=== PATIENT | female | born 1945 | race Caucasian/White ===

== ENCOUNTER → 2017-10-12 | Outpatient (CLI) | payer MEDICARE ==
[~2017-10-12] MED LIST: ALN70T PO; CATHETER FLUSH 10 ML SYR IV PRN; CEPH-38 PO; ENAL20TA76 PO; HYDR-3454 PO; IOHEXOL 350 MG/ML 100 ML (OMNIPAQUE 350) VIAL IV ONE; NS 100 ML (IVPB) BAG IV ONE; SERT50TA PO; TRIA1CAP4 PO
[2017-10-12 09:23] LABS: BUN/CREATININE RATIO 21; GFR ESTIMATED > 60
--- NOTE | 2017-10-12 10:57 | Diagnostic Imaging Report ---
INDICATION: History of left renal artery stenosis. COMPARISON: 01/02/2016. TECHNIQUE: Postcontrast CTA of the abdomen and pelvis was performed. Contrast bolus was timed for optimal opacification of the arterial structures. Multiplanar and 3-D reformats were also performed and reviewed. FINDINGS: Included portions of the lung bases are clear. CTA abdomen: Again identified is [id number] calcified aortic and arterial atherosclerosis. There is no evidence of dissection, aneurysm, nor focal stenosis of the abdominal aorta. The celiac trunk and superior mesenteric arteries are patent and have a normal appearance. There is normal opacification of the inferior mesenteric artery. Again identified are bulky calcifications at the origin of the left renal artery. As result, there is mild narrowing of the proximal margins of the left renal artery, but this is approximated at only approximately 20% on today's exam. Right renal artery is patent as well. There is significant colonic diverticular disease. There is no CT evidence of acute diverticulitis. Large amount of air and stool is also noted scattered throughout the colon suggestive of underlying constipation. Small bowel loops are nondistended. Normal appendix cannot be adequately identified, but there is no pericecal inflammation. Benign renal cysts are noted. No solid-appearing renal mass type lesions are identified. The adrenal glands, spleen, and pancreas have a normal appearance. Benign-appearing hepatic cysts are also noted. There is no loculated fluid collection, free fluid, nor free air within the abdomen. No abnormal mesenteric or retroperitoneal adenopathy is seen. Bony structures show no acute abnormalities. CTA pelvis: There is mild calcified atherosclerotic disease of the bilateral common iliac arteries and right common femoral artery. There is no focal hemodynamically significant stenosis. Urinary bladder is unopacified. No calculi are seen within the urinary bladder. There is trace amount of free fluid. There is no loculated fluid collection or free air. No abnormal lymph nodes are identified. Bony structures show no acute abnormalities. IMPRESSION: 1. Calcified atherosclerotic disease at the origin of the left renal artery. Again, there is mild narrowing of the proximal portions of left renal artery, but this does not appear to be hemodynamically significant on this exam. 2. Uisa-av-sumynsyh calcified aortic atherosclerosis. No evidence of aneurysm, dissection, nor focal aortic stenosis. 3. Large amount of colonic air and stool. Please correlate for constipation. 4. Moderate colonic diverticular disease, but no CT evidence of acute diverticulitis. 5. Small amount of free fluid within the pelvis of uncertain significance and etiology. Dictated by: Dictated on workstation # [id number]
== END ==
LOC: RAD 08:49
PROVIDERS: ATTEND Family Medicine
DX: I70.1 Atherosclerosis of renal artery (principal); I70.0 Atherosclerosis of aorta; K57.30 Diverticulosis of large intestine without perforation or abscess without bleeding
CPT/HCPCS: 36415; 74174; 82565; 84520

== ENCOUNTER → 2017-12-02 | Outpatient (CLI) | payer MEDICARE ==
[~2017-12-02] MED LIST changes: -CATHETER FLUSH 10 ML SYR IV PRN; -IOHEXOL 350 MG/ML 100 ML (OMNIPAQUE 350) VIAL IV ONE; -NS 100 ML (IVPB) BAG IV ONE
== END ==
LOC: CARD 12:48
PROVIDERS: ATTEND Internal Medicine Cardiovascular Disease
DX: I70.1 Atherosclerosis of renal artery (principal); I10 Essential (primary) hypertension; E78.2 Mixed hyperlipidemia; R09.89 Other specified symptoms and signs involving the circulatory and respiratory systems
CPT/HCPCS: 93306; 93351

== ENCOUNTER 2019-03-07 05:47 | Outpatient (CLI) | payer MEDICARE ==
[~2019-03-07] VITALS: Ht 157.5 cm; Wt 62.1 kg
[2019-03-08] MEDS ORDERED: METO-387 PO (09:08)
[2019-03-08] MEDS ORDERED: SERT50TA9 PO (09:08)
[2019-03-08] MEDS ORDERED: FENO135C4 PO (09:08)
[2019-03-08] MEDS ORDERED: LOSA1TAB23 PO (09:08)
[2019-03-08] MEDS ORDERED: ATOR40TA70 PO (09:08)
== END 2019-03-07 16:30 | disposition home or self-care (01) ==
LOC: PREOP 05:47
PROVIDERS: ATTEND Internal Medicine
DX: Z01.818 Encounter for other preprocedural examination (principal)

== ENCOUNTER 2019-03-11 07:59 | Day surgery (SDC) | payer MEDICARE ==
--- NOTE | 2019-02-28 16:58 | HISTORY AND PHYSICAL ---
DATE OF SERVICE: COLONOSCOPY HISTORY AND PHYSICAL HISTORY OF PRESENT ILLNESS: The patient is a 73-year-old white female referred by Dr. Ugalde for screening colonoscopy. I last performed screening colonoscopy on her nearly 10 years ago, at which time she had diverticular disease and a serrated polyp removed from the cecum. She states that she has been feeling well and denies any problems with abdominal pain, bright red blood per rectum or melena. 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 She has no known history for vascular disease or pulmonary disease, and denies any significant change in medical history over the past 10 years. MEDICATIONS ON ADMISSION: Atorvastatin 40 mg daily, metoprolol ER 25 daily, sertraline 50 mg daily, losartan HCT 100/25 one daily and fenofibrate 135 mg at bedtime. PAST SURGICAL HISTORY: Noncontributory. FAMILY HISTORY: She is not aware of any family history for colon cancer, polyps or inflammatory bowel disease. PHYSICAL EXAMINATION: GENERAL: Reveals a white female, who appears to be in no acute distress. VITAL SIGNS: Weight is 137.4 pounds, blood pressure 126/64. HEENT: Unremarkable. Sclerae nonicteric. CHEST: Clear to auscultation. CARDIOVASCULAR: Reveals a regular rate and rhythm without murmur, S3 or S4. ABDOMEN: Soft, supple without mass, organomegaly or tenderness. EXTREMITIES: Reveal no cyanosis, clubbing or edema. ASSESSMENT AND PLAN: The patient is set for screening colonoscopy on 03/11/2019. Prep instructions with the Suprep kit were given and questions were answered. I thank you for the referral of this pleasant lady. Job ID: [id number] DocumentID: [id number] Dictated Date: 02/25/2019 13:05:04 Steam Conditioner Filling Date: 02/25/2019 13:57:22 Dictated By: MARCEL JOSHI MD
[2019-03-11] VITALS (13 sets, daily range): BP systolic 129–169; BP diastolic 58–78
[~2019-03-11] VITALS: Ht 157.5 cm; Wt 62.1 kg
[~2019-03-11 07:59] MED LIST changes: +ATOR40TA70 PO; +FENO135C4 PO; +LOSA1TAB23 PO; +METO-387 PO; +SERT50TA9 PO
[2019-03-11] MEDS ORDERED: D5 LR IV SOLUTION 1,000 ML IV ONE (08:27)
[2019-03-11] MEDS ORDERED: D5 LR IV SOLUTION 1,000 ML IV STA (08:58)
--- NOTE | 2019-03-11 08:58 | Pre-Op Note & Conscious Sedat ---
Pre-Operative Progress Note H&P Reviewed The H&P was reviewed, patient examined and no changes noted. Date H&P Reviewed: Mar 11, 2019 Time H&P Reviewed: 08:57 Conscious Sedation Pre-Proced ASA Score 2 For ASA 3 and 4: Consider anesthesia and medical clearance. Also, for patients with a history of failed moderate sedation consider anesthesia. Airway Lungs Heart ASA score ASA 1: a normal healthy patient ASA 2: a patient with a mild systemic disease (mid diabetes, controlled hypertension, obesity ASA 3: a patient with a severe systemic disease that limits activity (angina, COPD, prior Myocardial infarction) ASA 4: a patient with an incapacitating disease that is a constant threat to life (CHF, renal failure) ASA 5: a moribund patient not expected to survive 24 hrs. (ruptured aneurysm) ASA 6: a declared brain- patient whose organs are being harvested. For emergent operations, add the letter E after the classification Mallampati Classification Grade 2 Sedation Plan Analgesia, Amnesia, Plan communicated to team members, Discussed options with patient/fam, Discussed risks with patient/fam The patient is an appropriate candidate to undergo the planned procedure, sedation, and anesthesia. The patient immediately re-assessed prior to indication. MARCEL JOSHI MD Mar 11, 2019 08:57
[2019-03-11] MEDS ORDERED: fentaNYL INJECTION 100 MCG/2 ML AMP IVP ONE (09:00)
[2019-03-11] MEDS ORDERED: MIDAZOLAM 2 MG/2 ML (VERSED) VIAL IVP ONE (09:00)
[2019-03-11] MEDS ORDERED: LIDOCAINE JELLY 2% 6 ML SYRINGE MM PRN (09:00)
[2019-03-11] MEDS ORDERED: MIDAZOLAM 2 MG/2 ML (VERSED) VIAL ONE ×2 (09:33→09:34)
[2019-03-11] MEDS ORDERED: fentaNYL INJECTION 100 MCG/2 ML AMP ONE ×2 (09:33→09:46)
[2019-03-11] MEDS ORDERED: LIDOCAINE JELLY 2% 6 ML SYRINGE ONE (09:33)
--- OUTSIDE RECORDS SUMMARY | 2019-03-11 18:07 | XMS REPORT | Clinical Summary ---
Author Author [facility] Organization [facility] Address Unknown Phone Unavailable Care Team Providers Care Coat Ironer Hand Name Role Phone Lia Benítez [employer] VAULT CUSTODIAN Unavailable Agustina Moctezuma MD Unavailable Akiko Delgado [employer] CUSTODIAN Unavailable April Ugalde MD PCP Source Comments Some departments are not documenting in the electronic medical record. If you d o not see the information that you expected, contact Release of Information in [facility] Information Management department at [phone] for further assistan ce in locating additional records.[facility] Allergies Comments Active Allergy Reactions Severity Noted Date Erythromycin UNKNOWN 06/15/2014 Penicillins UNKNOWN 06/15/2014 Medications End Date Status Medication Sig Dispensed Refills Start Date Active alendronate (FOSAMAX) 70 TAKE ONE 12 Tab 4 09/15/ mg tablet TABLET BY 2 MOUTH ONCE A WEEK Active CALCIUM CARBONATE/VITAMIN Take by 0 D3 (CALCIUM + D PO) mouth. Active ATORVASTATIN CALCIUM Take by 0 (LIPITOR PO) mouth. Active enalapril (VASOTEC) 10 mg Take 10 mg by 0 tablet mouth daily. Active MULTIVITAMIN WITH Take by 0 MINERALS (MULTIVITAMIN & mouth. MINERAL FORMULA PO) Active SERTRALINE HCL (ZOLOFT Take by 0 PO) mouth. Active folic acid (FOLVITE) 1 mg Take 1 mg by 0 tablet mouth daily. Active triamterene-hydrochloroth Take 1 Cap by 0 iazide (DYAZIDE) 37.5-25 mouth every mg capsule morning. Active cholecalciferol (Vitamin Take 1,000 0 D3) (VITAMIN D-3) 1,000 Units by units tablet mouth daily. Active Problems Problem Noted Date Osteopenia 06/22/2014 Screening mammogram for high-risk patient 01/28/2010 Social History Date Tobacco Use Types Packs/Day Years Used Never Smoker Smokeless Tobacco: Never Used Drinks/Week oz/Week Comments Alcohol Use Not Asked Sex Assigned at Date Recorded Not on file Industry Job Start Date Occupation Not on file Not on file Not on file Travel End Travel History Travel Start No recent travel history available. Last Filed Vital Signs Reading Time Taken Comments Vital Sign 140/84 06/21/2014 1:10 PM CDT Blood Pressure - - Pulse - - Temperature - - Respiratory Rate - - Oxygen Saturation - - Inhaled Oxygen Concentration 62 kg (136 lb 9.6 oz) 06/21/2014 1:10 PM CDT Weight 158.8 cm (5' 2.5") 06/21/2014 1:10 PM CDT Height 24.59 06/21/2014 1:10 PM CDT Body Mass Index Plan of Treatment Health Maintenance Due Date Last Done Comments HEPATITIS C SCREENING 1944 PHYSICAL (COMPREHENSIVE) 11/19/1951 EXAM DTAP/TDAP VACCINES (1 - 1962 Tdap) COLORECTAL CANCER 1994 SCREENING SHINGLES RECOMBINANT 1994 VACCINE (1 of 2) PNEUMONIA (PCV13/PPSV23) 2009 VACCINES (1 of 2 - PCV13) INFLUENZA VACCINE 05/24/2019 07/04/2015 BREAST CANCER SCREENING 07/24/2019 07/24/2018, 07/14/2017, 07/09/2016, Additional history exists OSTEOPOROSIS Completed 06/21/2014, 05/15/2011 SCREENING/MONITORING Results Not on filefrom Last 3 Months Insurance Type Payer Benefit Subscriber ID Effective Phone Address Plan / Dates Group Medicare BCBS ROSE BCBS xxxxxxxxxxxx 2017-P SUPPLEMENT resent Medicare MEDICARE MEDICARE xxxxxxxxxxx 2009-P PART A AND resent B Advance Directives Patient Nursing Care Attendant Explanation Type Date Recorded Advance 05/23/2013 4:44 PM Directive/DPOA
--- OUTSIDE RECORDS SUMMARY | 2019-03-11 18:08 | XMS REPORT | CCD ---
Author Author April Ugalde Organization April Ugalde MD, [facility] Address [address] [place] [address] Phone Care Team Providers Care Dye Maker Name Role Phone PP Unavailable CCM Unavailable Summary Purpose Interface Exchange Insurance Providers Payer name Policy type / Coverage type Covered constitution party ID Effective Begin Date Effective End Date WPS Medicare Part B Medicare Part B [id number] Unknown [facility] Medicare Part B [id number] Unknown Family history Brother Diagnosis Age At Onset No Family Disease Entered N/A Brother Diagnosis Age At Onset No Family Disease Entered N/A Brother Diagnosis Age At Onset No Family Disease Entered N/A Father Diagnosis Age At Onset No Family Disease Entered N/A Mother Diagnosis Age At Onset No Family Disease Entered N/A Son Diagnosis Age At Onset No Family Disease Entered N/A Son Diagnosis Age At Onset No Family Disease Entered N/A Brother Diagnosis Age At Onset Diabetes mellitus Type 2 Unknown Son Diagnosis Age At Onset No Family Disease Entered N/A Social History Social History Element Codes Description Effective Dates Living arrangements Unknown House 07/31/2012 Employment Unknown 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 Unknown Has never used illegal drugs 06/25/2011 Allergies, Adverse Reactions, Alerts Substance Reaction Codes Entered Date Inactivated Date Status Erythromycin RxNorm: 4053 06/25/2011 No Inactive Date Active * NO KNOWN FOOD ALLERGIES Unknown 05/11/2014 No Inactive Date Active SULFA (SULFONAMIDE ANTIBIOTICS) Unknown 06/25/2011 No Inactive Date Active Past Medical History Illness Codes Condition Status Onset Date Resolved Date Essential (primary) hypertension ICD-9: 401.1 ICD-10: I10 Active 01/02/2016 Unknown Low back pain ICD-9: 724.2 ICD-10: M54.5 Active 02/03/2019 Unknown Mixed hyperlipidemia ICD- 9: 272.2 ICD-10: E78.2 Active 01/02/2016 Unknown Encounter for screening mammogram for malignant neoplasm of breast ICD-9: V76.10 ICD-10: Z12.31 Active 07/26/2018 Unknown Major depressive disorder, recurrent, moderate ICD-9: 296.32 ICD-10: F33.1 Active 07/12/2018 Unknown Atherosclerosis of renal artery ICD-9: 440.1 ICD-10: I70.1 Active 10/07/2017 Unknown Encounter for general adult medical examination without abnormal findings ICD-9: V70.0 ICD-10: Z00.00 Active 07/29/2015 Unknown Essential (primary) hypertension ICD-9: 401.9 ICD-10: I10 Active 05/11/2014 Unknown VACCIN FOR INFLUENZA ICD- 9: V04.81 ICD-10: Z23 Active 07/03/2015 Unknown ESSENTIAL HYPERTENSION ICD-9: 401.9 Active 05/11/2014 Unknown HYPERLIPIDEMIA ICD-9: 272.4 Active 05/11/2014 Unknown Urinary incontinence ICD- 9: 788.30 Active 05/11/2014 Unknown Osteoarthritis Unknown Active 07/28/2012 Unknown GENERAL OSTEOARTHROSIS ICD-9: 715.00 Active 07/28/2012 Unknown Toe pain ICD-9: 729.5 Active 07/28/2012 Unknown Hyperlipidemia Unknown Active 06/25/2011 Unknown Hypertension Unknown Active 06/25/2011 Unknown osteopenia Unknown Active 06/25/2011 Unknown Insomnia ICD-9: 780.52 Active 06/25/2011 Unknown VACCIN STREP PNEUMONIAE ICD-9: V03.82 Active 06/25/2011 Unknown Problems Condition Codes Effective Dates Condition Status Essential (primary) hypertension ICD-9: 401.1 ICD-10: I10 01/02/2016 Active Low back pain ICD-9: 724.2 ICD-10: M54.5 02/03/2019 Active Mixed hyperlipidemia ICD- 9: 272.2 ICD-10: E78.2 01/02/2016 Active Encounter for screening mammogram for malignant neoplasm of breast ICD-9: V76.10 ICD-10: Z12.31 07/26/2018 Active Major depressive disorder, recurrent, moderate ICD-9: 296.32 ICD-10: F33.1 07/12/2018 Active Atherosclerosis of renal artery ICD-9: 440.1 ICD-10: I70.1 10/07/2017 Active Encounter for general adult medical examination without abnormal findings ICD-9: V70.0 ICD-10: Z00.00 07/29/2015 Active Essential (primary) hypertension ICD-9: 401.9 ICD-10: I10 05/11/2014 Active VACCIN FOR INFLUENZA ICD- 9: V04.81 ICD-10: Z23 07/03/2015 Active ESSENTIAL HYPERTENSION ICD-9: 401.9 05/11/2014 Active HYPERLIPIDEMIA ICD-9: 272.4 05/11/2014 Active Urinary incontinence ICD- 9: 788.30 05/11/2014 Active Osteoarthritis Unknown 07/28/2012 Active GENERAL OSTEOARTHROSIS ICD-9: 715.00 07/28/2012 Active Toe pain ICD-9: 729.5 07/28/2012 Active Hyperlipidemia Unknown 06/25/2011 Active Hypertension Unknown 06/25/2011 Active osteopenia Unknown 06/25/2011 Active Insomnia ICD-9: 780.52 06/25/2011 Active VACCIN STREP PNEUMONIAE ICD-9: V03.82 06/25/2011 Active Medications Medication Codes Instructions Start Date Stop Date Status Fill Instructions sertraline 50 mg tablet RxNorm: 493555 TAKE 1 TABLET BY MOUTH ONCE DAILY 02/04/2019 No Stop Date Active Lipitor 40 mg tablet RxNorm: 248260 1 Tablet(s) PO daily 01/05/2019 08/02/2019 Active Toprol XL 25 mg tablet,extended release RxNorm: 970166 TAKE 1 TABLET BY MOUTH ONCE DAILY 01/03/2019 No Stop Date Active Lipitor 40 mg tablet RxNorm: 076094 1 Tablet(s) PO daily 06/18/2018 10/15/2018 Inactive Trilipix 135 mg capsule,delayed release RxNorm: 061285 Capsule(s) TAKE ONE CAPSULE BY MOUTH AT BEDTIME 05/06/2018 No Stop Date Active sertraline 50 mg tablet RxNorm: 924396 Tablet(s) TAKE ONE TABLET BY MOUTH ONCE DAILY 11/12/2017 11/06/2018 Inactive Toprol XL 25 mg tablet,extended release RxNorm: 848335 1 Tablet(s) PO daily 11/12/2017 11/06/2018 Inactive losartan 100 mg tablet RxNorm: 432142 1 Tablet(s) PO daily 10/07/2017 05/04/2018 Inactive Trilipix 135 mg capsule,delayed release RxNorm: 643829 TAKE ONE CAPSULE BY MOUTH AT BEDTIME 09/14/2017 05/05/2018 Inactive sertraline 50 mg tablet RxNorm: 482919 TAKE ONE TABLET BY MOUTH ONCE DAILY 05/12/2017 11/11/2017 Inactive Trilipix 135 mg capsule,delayed release RxNorm: 845106 1 Capsule(s) PO QHS 04/17/2017 07/15/2017 Inactive Trilipix 135 mg capsule,delayed release RxNorm: 759873 1 Capsule(s) PO QHS 04/17/2017 04/16/2017 Inactive Toprol XL 25 mg tablet,extended release RxNorm: 872731 1 Tablet(s) PO daily 04/17/2017 10/13/2017 Inactive Toprol XL 25 mg tablet,extended release RxNorm: 907060 1 Tablet(s) PO daily 04/17/2017 04/16/2017 Inactive enalapril maleate 20 mg tablet RxNorm: 013839 1 Tablet(s) PO QHS 05/13/2016 10/06/2017 Inactive sertraline 50 mg tablet RxNorm: 600065 1 Tablet(s) PO daily 01/24/2016 05/22/2016 Inactive Fosamax 70 mg tablet RxNorm: 663310 1 Tablet(s) PO QW 06/30/2014 06/24/2015 Inactive Fosamax 70 mg tablet RxNorm: 565033 1 Tablet(s) PO QW 06/30/2014 06/29/2014 Inactive ivermectin 3 mg tablet RxNorm: 871569 5 Tablet(s) PO daily may repeat on day 8 if needed 04/02/2012 04/01/2012 Inactive ivermectin 3 mg tablet RxNorm: 407425 5 Tablet(s) PO daily may repeat on day 8 if needed 04/02/2012 04/02/2012 Inactive Pneumovax 23 25 mcg/0.5 mL Injection RxNorm: 229084 Milliliter(s) Inj 06/25/2011 06/25/2011 Inactive hydrochlorothiazide 25 mg tablet RxNorm: 646015 1 Tablet(s) PO daily No Start Date Active folic acid 800 mcg tablet RxNorm: 999050 1 Tablet(s) PO daily No Start Date Active Fosamax 70 mg Tab RxNorm: 816247 1 Tablet(s) PO weekly No Start Date 10/06/2017 Inactive melatonin 10 mg tablet RxNorm: 9522863 1 Tablet(s) PO daily No Start Date 10/06/2017 Inactive enalapril maleate 20 mg Tab RxNorm: 815447 1 Tablet(s) PO QHS No Start Date 05/12/2016 Inactive Vitamin D 1,000 unit Cap RxNorm: 624921 1 Capsule(s) PO daily No Start Date 10/06/2017 Inactive triamterine HCTZ 25/37.5 mg RxNorm: 1 PO daily No Start Date 04/12/2012 Inactive sertraline 50 mg Tab RxNorm: 450627 1 Tablet(s) PO daily No Start Date 01/23/2016 Inactive multivitamin Cap RxNorm: 1 Capsule(s) PO daily No Start Date 10/06/2017 Inactive calcium 500 mg Tab RxNorm: 1 Tablet(s) PO daily No Start Date 10/06/2017 Inactive triamterene-hydrochlorothiazide 37.5 mg-25 mg Tab RxNorm: 058546 1 Tablet(s) PO daily No Start Date 04/19/2017 Inactive Lipitor 40 mg Tab RxNorm: 619005 1 Tablet(s) PO daily No Start Date 06/17/2018 Inactive losartan 25 mg tablet RxNorm: 709035 1 Tablet(s) PO daily No Start Date 10/06/2017 Inactive Tylenol PM Extra Strength 25 mg-500 mg Tab RxNorm: 5622963 1 Tablet(s) PO QHS No Start Date 02/06/2013 Inactive Restasis 0.05 % eye drops in a dropperette RxNorm: 245595 ophthalmic No Start Date 07/11/2018 Inactive Estring 2 mg Vaginal RxNorm: 851940 1 VAG q 3 month No Start Date 09/24/2016 Inactive Medication Administered Medication Codes Instructions Start Date Status Pneumovax 23 25 mcg/0.5 mL Injection RxNorm: 305353 Milliliter 06/25/2011 No longer Active Immunizations Vaccine Codes Date Status Influenza CVX: 141 06/03/2018 completed Pneumococcal CVX: 33 05/24/2018 completed Influenza CVX: 141 05/12/2017 completed Pneumococcal CVX: 133 06/19/2016 completed Zoster CVX: 121 03/05/2016 completed Influenza CVX: 141 07/04/2015 completed Influenza CVX: 141 05/11/2014 completed Influenza CVX: 141 06/07/2013 completed Influenza CVX: 141 07/28/2012 completed Zoster CVX: 121 09/24/2011 completed Pneumococcal (Adult) CVX: 33 06/25/2011 completed Assessments Condition Codes Effective Dates Mixed hyperlipidemia ICD-10: E78.2 ICD-9: 272.2 02/03/2019 Low back pain ICD-10: M54.5 ICD-9: 724.2 02/03/2019 Essential (primary) hypertension ICD-10: I10 ICD-9: 401.1 02/03/2019 Encounter for screening mammogram for malignant neoplasm of breast ICD-10: Z12.31 ICD-9: V76.10 07/26/2018 Major depressive disorder, recurrent, moderate ICD-10: F33.1 ICD-9: 296.32 07/12/2018 Atherosclerosis of renal artery ICD-10: I70.1 ICD-9: 440.1 10/07/2017 Encounter for general adult medical examination without abnormal findings ICD-10: Z00.00 ICD-9: V70.0 09/25/2016 Essential (primary) hypertension ICD-10: I10 ICD-9: 401.9 07/30/2015 VACCIN FOR INFLUENZA ICD-10: Z23 ICD-9: V04.81 07/04/2015 HYPERLIPIDEMIA ICD-9: 272.4 05/11/2014 ESSENTIAL HYPERTENSION ICD-9: 401.9 05/11/2014 Urinary incontinence ICD-9: 788.30 05/11/2014 GENERAL OSTEOARTHROSIS ICD-9: 715.00 07/28/2012 Toe pain ICD-9: 729.5 07/28/2012 Insomnia ICD-9: 780.52 06/25/2011 VACCIN STREP PNEUMONIAE ICD-9: V03.82 06/25/2011 Reason For Visit Reason For Visit Effective Dates Notes back pain 02/03/2019 hypertension 07/12/2018 hypertension 03/08/2018 hypertension 10/28/2017 hypertension 10/07/2017 hypertension 03/26/2017 hypertension 09/25/2016 hypertension 01/03/2016 hypertension 07/30/2015 vaccination against influenza 07/04/2015 hypertension 05/11/2014 hypertension 02/07/2013 hypertension 07/28/2012 hypertension 04/13/2012 hypertension 09/24/2011 hypertension 06/25/2011 Results Observation Observation Code Item Item Code Result Date Cbc With Differential Ord2 WBC 5.45 K/ul 07/12/2018 Cbc With Differential Ord2 RBC 3.94 M/ul 07/12/2018 Cbc With Differential Ord2 HGB 13.2 g/dl 07/12/2018 Cbc With Differential Ord2 HCT 40.1 % 07/12/2018 Cbc With Differential Ord2 Neut% 53.9 % 07/12/2018 Cbc With Differential Ord2 MCV 101.8 fl 07/12/2018 Cbc With Differential Ord2 Lymph% 29.2 % 07/12/2018 Cbc With Differential Ord2 MCH 33.5 pg 07/12/2018 Cbc With Differential Ord2 [place]% 11.2 % 07/12/2018 Cbc With Differential Ord2 MCHC 32.9 pg 07/12/2018 Cbc With Differential Ord2 Eos% 4.8 % 07/12/2018 Cbc With Differential Ord2 PLT 283 K/ul 07/12/2018 Cbc With Differential Ord2 Baso% 0.9 % 07/12/2018 Cbc With Differential Ord2 RDW 13.0 % 07/12/2018 Cbc With Differential Ord2 Neut ABS# 2.94 K/ul 07/12/2018 Cbc With Differential Ord2 Lymph ABS# 1.59 K/ul 07/12/2018 Cbc With Differential Ord2 [place] ABS# 0.6 K/ul 07/12/2018 Cbc With Differential Ord2 Eos ABS# 0.3 K/ul 07/12/2018 Cbc With Differential Ord2 Baso ABS# 0.1 K/ul 07/12/2018 Lipid Ord30 CHOL 189 mg/dL 07/12/2018 Lipid Ord30 HDL 86.0 mg/dl 07/12/2018 Lipid Ord30 TRIG 47 mg/dL 07/12/2018 Lipid Ord30 LDL 94 mg/dL 07/12/2018 Lipid Ord30 C/HDL 2.2 Ratio 07/12/2018 Comp Metabolic Ncy839 NA 138 mEq/L 07/12/2018 Comp Metabolic Jlu321 K 4.0 mEq/L 07/12/2018 Comp Metabolic Vcf328 CL 103 mEq/L 07/12/2018 Comp Metabolic Nxi735 CO2 25.0 mEq/L 07/12/2018 Comp Metabolic Nqw742 ANION GAP 14 07/12/2018 Comp Metabolic Vfn122 GLUCOSE 94 mg/dL 07/12/2018 Comp Metabolic Jro960 Creat 1.0 mg/dL 07/12/2018 Comp Metabolic Ozb519 eGFR 57 ml/min/1.73m2 07/12/2018 Comp Metabolic Bel409 BUN 24 mg/dL 07/12/2018 Comp Metabolic Rwd549 B/C Ratio 23.8 Ratio 07/12/2018 Comp Metabolic Qua895 CALCIUM 9.2 mg/dL 07/12/2018 Comp Metabolic Ggb260 ALK PHOS 32 U/L 07/12/2018 Comp Metabolic Cjy333 AST(SGOT) 21 U/L 07/12/2018 Comp Metabolic Ehm162 ALT(SGPT) 12 U/L 07/12/2018 Comp Metabolic Gka524 BILI T 0.7 mg/dL 07/12/2018 Comp Metabolic Iyf408 ALBUMIN 4.1 g/dL 07/12/2018 Comp Metabolic Lfx867 TPRO 6.4 g/dL 07/12/2018 Comp Metabolic Vjh488 GLOB 2.3 g/dL 07/12/2018 Comp Metabolic Fnh930 A/G Ratio 1.8 Ratio 07/12/2018 Comp Metabolic Djn186 Osmo 279 mOsmo 07/12/2018 Tsh Ord6 TSH (3rd IS) 3.80 uIU/mL 07/12/2018 Comp Metabolic Bcn781 NA 142 mEq/L 10/26/2017 Comp Metabolic Ott433 K 3.7 mEq/L 10/26/2017 Comp Metabolic Acj948 CL 103 mEq/L 10/26/2017 Comp Metabolic Tuq096 CO2 31.0 mEq/L 10/26/2017 Comp Metabolic Tcb350 ANION GAP 12 10/26/2017 Comp Metabolic Udg876 GLUCOSE 91 mg/dL 10/26/2017 Comp Metabolic Ffs124 Creat 0.9 mg/dL 10/26/2017 Comp Metabolic Kef517 eGFR 63 ml/min/1.73m2 10/26/2017 Comp Metabolic Wxr438 BUN 22 mg/dL 10/26/2017 Comp Metabolic Tlx818 B/C Ratio 23.7 Ratio 10/26/2017 Comp Metabolic Wbd158 CALCIUM 9.3 mg/dL 10/26/2017 Comp Metabolic Ntm184 ALK PHOS 44 U/L 10/26/2017 Comp Metabolic Ysj607 AST(SGOT) 22 U/L 10/26/2017 Comp Metabolic Ffq934 ALT(SGPT) 14 U/L 10/26/2017 Comp Metabolic Qji463 BILI T 0.6 mg/dL 10/26/2017 Comp Metabolic Zxc259 ALBUMIN 4.4 g/dL 10/26/2017 Comp Metabolic Ogf871 TPRO 6.5 g/dL 10/26/2017 Comp Metabolic Psc107 GLOB 2.1 g/dL 10/26/2017 Comp Metabolic Zip041 A/G Ratio 2.1 Ratio 10/26/2017 Comp Metabolic Vqe839 Osmo 286 mOsmo 10/26/2017 Lipid Ord30 CHOL 182 mg/dL 10/26/2017 Lipid Ord30 HDL 65.0 mg/dl 10/26/2017 Lipid Ord30 TRIG 88 mg/dL 10/26/2017 Lipid Ord30 LDL 99 mg/dL 10/26/2017 Lipid Ord30 C/HDL 2.8 Ratio 10/26/2017 Review of Systems System Result Effective Dates Constitutional No recent illness 02/03/2019 Constitutional No night sweats 02/03/2019 Constitutional No chills 02/03/2019 Eyes No vision change 02/03/2019 Ears/Nose/Throat/Neck No dizziness 02/03/2019 Ears/Nose/Throat/Neck No headache 02/03/2019 Cardiovascular No chest pain/pressure 02/03/2019 Cardiovascular No dyspnea 02/03/2019 Cardiovascular No edema 02/03/2019 Cardiovascular No exercise intolerance 02/03/2019 Cardiovascular No fatigue 02/03/2019 Cardiovascular hypertension 02/03/2019 Cardiovascular No near-syncope/dizziness 02/03/2019 Respiratory No chest congestion 02/03/2019 Respiratory No cough 02/03/2019 Gastrointestinal No abdominal pain 02/03/2019 Gastrointestinal No anorexia 02/03/2019 Gastrointestinal No constipation 02/03/2019 Genitourinary/Nephrology No dysuria 02/03/2019 Genitourinary/Nephrology No nocturia 02/03/2019 Genitourinary/Nephrology No urinary incontinence 02/03/2019 Musculoskeletal No arthralgia(s) 02/03/2019 Dermatologic No rash 02/03/2019 Neurologic No ataxia 02/03/2019 Neurologic No dizziness 02/03/2019 Psychiatric No anxiety 02/03/2019 Psychiatric No depression 02/03/2019 Musculoskeletal back pain 02/03/2019 Constitutional No recent illness 07/12/2018 Constitutional No night sweats 07/12/2018 Constitutional No chills 07/12/2018 Eyes No vision change 07/12/2018 Ears/Nose/Throat/Neck No dizziness 07/12/2018 Ears/Nose/Throat/Neck No headache 07/12/2018 Cardiovascular No chest pain/pressure 07/12/2018 Cardiovascular No dyspnea 07/12/2018 Cardiovascular No edema 07/12/2018 Cardiovascular No exercise intolerance 07/12/2018 Cardiovascular No fatigue 07/12/2018 Cardiovascular hypertension 07/12/2018 Cardiovascular No near-syncope/dizziness 07/12/2018 Respiratory No chest congestion 07/12/2018 Respiratory No cough 07/12/2018 Gastrointestinal No abdominal pain 07/12/2018 Gastrointestinal No anorexia 07/12/2018 Gastrointestinal No constipation 07/12/2018 Genitourinary/Nephrology No dysuria 07/12/2018 Genitourinary/Nephrology No nocturia 07/12/2018 Genitourinary/Nephrology No urinary incontinence 07/12/2018 Musculoskeletal No arthralgia(s) 07/12/2018 Dermatologic No rash 07/12/2018 Neurologic No ataxia 07/12/2018 Neurologic No dizziness 07/12/2018 Psychiatric No anxiety 07/12/2018 Psychiatric No depression 07/12/2018 Constitutional No recent illness 03/08/2018 Constitutional No night sweats 03/08/2018 Constitutional No chills 03/08/2018 Ears/Nose/Throat/Neck No dizziness 03/08/2018 Ears/Nose/Throat/Neck No headache 03/08/2018 Cardiovascular No chest pain/pressure 03/08/2018 Cardiovascular No dyspnea 03/08/2018 Cardiovascular No edema 03/08/2018 Cardiovascular No exercise intolerance 03/08/2018 Cardiovascular No fatigue 03/08/2018 Cardiovascular hypertension 03/08/2018 Cardiovascular No near-syncope/dizziness 03/08/2018 Respiratory No chest congestion 03/08/2018 Respiratory No cough 03/08/2018 Gastrointestinal No abdominal pain 03/08/2018 Gastrointestinal No anorexia 03/08/2018 Gastrointestinal No constipation 03/08/2018 Musculoskeletal No arthralgia(s) 03/08/2018 Neurologic No ataxia 03/08/2018 Neurologic No dizziness 03/08/2018 Psychiatric No anxiety 03/08/2018 Psychiatric No depression 03/08/2018 Constitutional No recent illness 10/28/2017 Constitutional No night sweats 10/28/2017 Constitutional No chills 10/28/2017 Eyes No vision change 10/28/2017 Ears/Nose/Throat/Neck No dizziness 10/28/2017 Ears/Nose/Throat/Neck No headache 10/28/2017 Cardiovascular No chest pain/pressure 10/28/2017 Cardiovascular No dyspnea 10/28/2017 Cardiovascular No edema 10/28/2017 Cardiovascular No exercise intolerance 10/28/2017 Cardiovascular No fatigue 10/28/2017 Cardiovascular hypertension 10/28/2017 Cardiovascular No near-syncope/dizziness 10/28/2017 Respiratory No chest congestion 10/28/2017 Respiratory No cough 10/28/2017 Gastrointestinal No abdominal pain 10/28/2017 Gastrointestinal No anorexia 10/28/2017 Gastrointestinal No constipation 10/28/2017 Musculoskeletal No arthralgia(s) 10/28/2017 Neurologic No ataxia 10/28/2017 Neurologic No dizziness 10/28/2017 Psychiatric No anxiety 10/28/2017 Psychiatric No depression 10/28/2017 Constitutional No recent illness 10/07/2017 Constitutional No night sweats 10/07/2017 Constitutional No chills 10/07/2017 Eyes No vision change 10/07/2017 Ears/Nose/Throat/Neck No dizziness 10/07/2017 Ears/Nose/Throat/Neck No headache 10/07/2017 Cardiovascular No chest pain/pressure 10/07/2017 Cardiovascular No dyspnea 10/07/2017 Cardiovascular No edema 10/07/2017 Cardiovascular No exercise intolerance 10/07/2017 Cardiovascular No fatigue 10/07/2017 Cardiovascular No near-syncope/dizziness 10/07/2017 Respiratory No chest congestion 10/07/2017 Respiratory No cough 10/07/2017 Gastrointestinal No abdominal pain 10/07/2017 Gastrointestinal No anorexia 10/07/2017 Gastrointestinal No constipation 10/07/2017 Genitourinary/Nephrology No dysuria 10/07/2017 Genitourinary/Nephrology No nocturia 10/07/2017 Genitourinary/Nephrology No urinary incontinence 10/07/2017 Musculoskeletal No arthralgia(s) 10/07/2017 Dermatologic No rash 10/07/2017 Dermatologic No scar 10/07/2017 Neurologic No ataxia 10/07/2017 Neurologic No dizziness 10/07/2017 Psychiatric No anxiety 10/07/2017 Psychiatric No depression 10/07/2017 Cardiovascular hypertension 10/07/2017 Constitutional No recent illness 03/26/2017 Constitutional No night sweats 03/26/2017 Constitutional No chills 03/26/2017 Eyes No vision change 03/26/2017 Ears/Nose/Throat/Neck No dizziness 03/26/2017 Ears/Nose/Throat/Neck No headache 03/26/2017 Cardiovascular No chest pain/pressure 03/26/2017 Cardiovascular No dyspnea 03/26/2017 Cardiovascular No edema 03/26/2017 Cardiovascular No exercise intolerance 03/26/2017 Cardiovascular No fatigue 03/26/2017 Cardiovascular No near-syncope/dizziness 03/26/2017 Respiratory No chest congestion 03/26/2017 Respiratory No cough 03/26/2017 Gastrointestinal No abdominal pain 03/26/2017 Gastrointestinal No anorexia 03/26/2017 Gastrointestinal No constipation 03/26/2017 Genitourinary/Nephrology No dysuria 03/26/2017 Genitourinary/Nephrology No nocturia 03/26/2017 Genitourinary/Nephrology No urinary incontinence 03/26/2017 Musculoskeletal No arthralgia(s) 03/26/2017 Dermatologic No rash 03/26/2017 Dermatologic No scar 03/26/2017 Neurologic No ataxia 03/26/2017 Neurologic No dizziness 03/26/2017 Psychiatric No anxiety 03/26/2017 Psychiatric No depression 03/26/2017 Constitutional No recent illness 09/25/2016 Constitutional No night sweats 09/25/2016 Constitutional No chills 09/25/2016 Eyes No vision change 09/25/2016 Ears/Nose/Throat/Neck No dizziness 09/25/2016 Ears/Nose/Throat/Neck No headache 09/25/2016 Cardiovascular No chest pain/pressure 09/25/2016 Cardiovascular No dyspnea 09/25/2016 Cardiovascular No edema 09/25/2016 Cardiovascular No exercise intolerance 09/25/2016 Cardiovascular No fatigue 09/25/2016 Cardiovascular No near-syncope/dizziness 09/25/2016 Respiratory No chest congestion 09/25/2016 Respiratory No cough 09/25/2016 Gastrointestinal No abdominal pain 09/25/2016 Gastrointestinal No anorexia 09/25/2016 Gastrointestinal No constipation 09/25/2016 Genitourinary/Nephrology No dysuria 09/25/2016 Genitourinary/Nephrology No nocturia 09/25/2016 Genitourinary/Nephrology No urinary incontinence 09/25/2016 Musculoskeletal No arthralgia(s) 09/25/2016 Dermatologic No rash 09/25/2016 Dermatologic No scar 09/25/2016 Neurologic No ataxia 09/25/2016 Neurologic No dizziness 09/25/2016 Psychiatric No anxiety 09/25/2016 Psychiatric No depression 09/25/2016 Constitutional No recent illness 01/03/2016 Constitutional No night sweats 01/03/2016 Constitutional No chills 01/03/2016 Eyes No vision change 01/03/2016 Ears/Nose/Throat/Neck No dizziness 01/03/2016 Ears/Nose/Throat/Neck No headache 01/03/2016 Cardiovascular No chest pain/pressure 01/03/2016 Cardiovascular No dyspnea 01/03/2016 Cardiovascular No edema 01/03/2016 Cardiovascular No exercise intolerance 01/03/2016 Cardiovascular No fatigue 01/03/2016 Cardiovascular No near-syncope/dizziness 01/03/2016 Respiratory No chest congestion 01/03/2016 Respiratory No cough 01/03/2016 Gastrointestinal No abdominal pain 01/03/2016 Gastrointestinal No anorexia 01/03/2016 Gastrointestinal No constipation 01/03/2016 Genitourinary/Nephrology No dysuria 01/03/2016 Genitourinary/Nephrology No nocturia 01/03/2016 Genitourinary/Nephrology No urinary incontinence 01/03/2016 Musculoskeletal No arthralgia(s) 01/03/2016 Dermatologic No rash 01/03/2016 Dermatologic No scar 01/03/2016 Neurologic No ataxia 01/03/2016 Neurologic No dizziness 01/03/2016 Psychiatric No anxiety 01/03/2016 Psychiatric No depression 01/03/2016 Constitutional No recent illness 07/30/2015 Constitutional No night sweats 07/30/2015 Constitutional No chills 07/30/2015 Eyes No vision change 07/30/2015 Ears/Nose/Throat/Neck No dizziness 07/30/2015 Ears/Nose/Throat/Neck No headache 07/30/2015 Respiratory No chest congestion 07/30/2015 Respiratory No cough 07/30/2015 Gastrointestinal No abdominal pain 07/30/2015 Gastrointestinal No anorexia 07/30/2015 Gastrointestinal No constipation 07/30/2015 Musculoskeletal No arthralgia(s) 07/30/2015 Neurologic No ataxia 07/30/2015 Neurologic No dizziness 07/30/2015 Psychiatric No anxiety 07/30/2015 Psychiatric No depression 07/30/2015 Cardiovascular No chest pain/pressure 07/30/2015 Cardiovascular No dyspnea 07/30/2015 Cardiovascular No edema 07/30/2015 Cardiovascular No exercise intolerance 07/30/2015 Cardiovascular No fatigue 07/30/2015 Cardiovascular No near-syncope/dizziness 07/30/2015 Genitourinary/Nephrology No dysuria 07/30/2015 Genitourinary/Nephrology No nocturia 07/30/2015 Genitourinary/Nephrology No urinary incontinence 07/30/2015 Dermatologic No rash 07/30/2015 Dermatologic No scar 07/30/2015 Constitutional No recent illness 05/11/2014 Constitutional No night sweats 05/11/2014 Constitutional No chills 05/11/2014 Constitutional insomnia 05/11/2014 Eyes No vision change 05/11/2014 Ears/Nose/Throat/Neck No dizziness 05/11/2014 Ears/Nose/Throat/Neck No headache 05/11/2014 Respiratory No chest congestion 05/11/2014 Respiratory No cough 05/11/2014 Gastrointestinal No abdominal pain 05/11/2014 Gastrointestinal No anorexia 05/11/2014 Gastrointestinal No constipation 05/11/2014 Musculoskeletal No arthralgia(s) 05/11/2014 Neurologic No ataxia 05/11/2014 Neurologic No dizziness 05/11/2014 Psychiatric No anxiety 05/11/2014 Psychiatric No depression 05/11/2014 Genitourinary/Nephrology No dysuria 05/11/2014 Genitourinary/Nephrology urinary urgency 05/11/2014 Genitourinary/Nephrology urinary incontinence 05/11/2014 Genitourinary/Nephrology urinary frequency 05/11/2014 Cardiovascular No chest pain/pressure 05/11/2014 Cardiovascular hypertension 05/11/2014 Constitutional No night sweats 02/07/2013 Constitutional No recent illness 02/07/2013 Constitutional No chills 02/07/2013 Constitutional insomnia 02/07/2013 Eyes No vision change 02/07/2013 Ears/Nose/Throat/Neck No dizziness 02/07/2013 Ears/Nose/Throat/Neck No headache 02/07/2013 Respiratory No chest congestion 02/07/2013 Respiratory No cough 02/07/2013 Gastrointestinal No abdominal pain 02/07/2013 Gastrointestinal No anorexia 02/07/2013 Gastrointestinal No constipation 02/07/2013 Musculoskeletal No arthralgia(s) 02/07/2013 Neurologic No ataxia 02/07/2013 Neurologic No dizziness 02/07/2013 Psychiatric No anxiety 02/07/2013 Psychiatric No depression 02/07/2013 Constitutional No recent illness 07/28/2012 Constitutional No night sweats 07/28/2012 Constitutional No chills 07/28/2012 Constitutional insomnia 07/28/2012 Eyes No vision change 07/28/2012 Ears/Nose/Throat/Neck No dizziness 07/28/2012 Ears/Nose/Throat/Neck No headache 07/28/2012 Respiratory No chest congestion 07/28/2012 Respiratory No cough 07/28/2012 Gastrointestinal No abdominal pain 07/28/2012 Gastrointestinal No anorexia 07/28/2012 Gastrointestinal No constipation 07/28/2012 Musculoskeletal No arthralgia(s) 07/28/2012 Neurologic No ataxia 07/28/2012 Neurologic No dizziness 07/28/2012 Psychiatric No anxiety 07/28/2012 Psychiatric No depression 07/28/2012 Constitutional No night sweats 04/13/2012 Constitutional No recent illness 04/13/2012 Constitutional No chills 04/13/2012 Constitutional insomnia 04/13/2012 Eyes No vision change 04/13/2012 Ears/Nose/Throat/Neck No dizziness 04/13/2012 Ears/Nose/Throat/Neck No headache 04/13/2012 Respiratory No chest congestion 04/13/2012 Respiratory No cough 04/13/2012 Gastrointestinal No abdominal pain 04/13/2012 Gastrointestinal No anorexia 04/13/2012 Gastrointestinal No constipation 04/13/2012 Musculoskeletal No arthralgia(s) 04/13/2012 Neurologic No ataxia 04/13/2012 Neurologic No dizziness 04/13/2012 Psychiatric No anxiety 04/13/2012 Psychiatric No depression 04/13/2012 Constitutional No night sweats 09/24/2011 Constitutional No recent illness 09/24/2011 Constitutional No chills 09/24/2011 Constitutional insomnia 09/24/2011 Eyes No vision change 09/24/2011 Ears/Nose/Throat/Neck No dizziness 09/24/2011 Ears/Nose/Throat/Neck No headache 09/24/2011 Respiratory No chest congestion 09/24/2011 Respiratory No cough 09/24/2011 Gastrointestinal No abdominal pain 09/24/2011 Gastrointestinal No anorexia 09/24/2011 Gastrointestinal No constipation 09/24/2011 Musculoskeletal No arthralgia(s) 09/24/2011 Neurologic No ataxia 09/24/2011 Neurologic No dizziness 09/24/2011 Psychiatric No anxiety 09/24/2011 Psychiatric No depression 09/24/2011 Constitutional insomnia 06/25/2011 Constitutional No recent illness 06/25/2011 Constitutional No night sweats 06/25/2011 Constitutional No chills 06/25/2011 Eyes No vision change 06/25/2011 Ears/Nose/Throat/Neck No dizziness 06/25/2011 Ears/Nose/Throat/Neck No headache 06/25/2011 Respiratory No cough 06/25/2011 Respiratory No chest congestion 06/25/2011 Gastrointestinal No anorexia 06/25/2011 Gastrointestinal No constipation 06/25/2011 Gastrointestinal No abdominal pain 06/25/2011 Musculoskeletal No arthralgia(s) 06/25/2011 Neurologic No dizziness 06/25/2011 Neurologic No ataxia 06/25/2011 Psychiatric No anxiety 06/25/2011 Psychiatric No depression 06/25/2011 Physical Exam Exam Name System Name Item Name Status Result Effective Dates Notes Full Exam - General 1994 Constitutional general appearance Overall: well developed 02/03/2019 None Full Exam - General 1994 Constitutional general appearance Overall: in no acute distress 02/03/2019 None Full Exam - General 1994 Constitutional general appearance Overall: well nourished 02/03/2019 None Full Exam - General 1994 Eyes pupils and irises Overall: pupils equal, round, reactive to light and accomodation 02/03/2019 None Full Exam - General 1994 Ears/Nose/Throat otoscopic exam Overall: external auditory canals clear 02/03/2019 None Full Exam - General 1994 Ears/Nose/Throat otoscopic exam Overall: tympanic membranes clear 02/03/2019 None Full Exam - General 1994 Ears/Nose/Throat oral cavity/pharynx/larynx Overall: oral mucosa clear 02/03/2019 None Full Exam - General 1994 Ears/Nose/Throat oral cavity/pharynx/larynx Overall: oropharyngeal mucosa clear 02/03/2019 None Full Exam - General 1994 Ears/Nose/Throat oral cavity/pharynx/larynx Overall: no masses 02/03/2019 None Full Exam - General 1994 Respiratory auscultation Overall: breath sounds clear bilaterally 02/03/2019 None Full Exam - General 1994 Respiratory respiratory effort/rhythm Overall: no retractions 02/03/2019 None Full Exam - General 1994 Respiratory respiratory effort/rhythm Overall: normal rate 02/03/2019 None Full Exam - General 1994 Cardiovascular auscultation of heart Overall: regular rate 02/03/2019 None Full Exam - General 1994 Cardiovascular auscultation of heart Overall: normal heart sounds 02/03/2019 None Full Exam - General 1994 Cardiovascular auscultation of heart Overall: no murmurs 02/03/2019 None Full Exam - General 1994 Abdomen abdominal exam Overall: no tenderness 02/03/2019 None Full Exam - General 1994 Abdomen abdominal exam Overall: normal bowel sounds 02/03/2019 None Full Exam - General 1994 Musculoskeletal head and neck Overall: head atraumatic 02/03/2019 None Full Exam - General 1994 Musculoskeletal head and neck Overall: cervical spine benign 02/03/2019 None Full Exam - General 1994 Neurologic gait Overall: no ataxia, no unsteadiness 02/03/2019 None Full Exam - General 1994 Neurologic cranial nerves Overall: crainial nerves 2 - 12 grossly intact 02/03/2019 None Full Exam - General 1994 Psychiatric orientation/consciousness Overall: oriented to person, place and time 02/03/2019 None Full Exam - General 1994 Psychiatric mood and affect Overall: normal mood and affect 02/03/2019 None Full Exam - General 1994 Musculoskeletal spine, ribs and pelvis Posture: lordosis 02/03/2019 None Full Exam - General 1994 Constitutional general appearance Overall: well developed 07/12/2018 None Full Exam - General 1994 Constitutional general appearance Overall: in no acute distress 07/12/2018 None Full Exam - General 1994 Constitutional general appearance Overall: well nourished 07/12/2018 None Full Exam - General 1994 Eyes pupils and irises Overall: pupils equal, round, reactive to light and accomodation 07/12/2018 None Full Exam - General 1994 Ears/Nose/Throat otoscopic exam Overall: external auditory canals clear 07/12/2018 None Full Exam - General 1994 Ears/Nose/Throat otoscopic exam Overall: tympanic membranes clear 07/12/2018 None Full Exam - General 1994 Ears/Nose/Throat oral cavity/pharynx/larynx Overall: oral mucosa clear 07/12/2018 None Full Exam - General 1994 Ears/Nose/Throat oral cavity/pharynx/larynx Overall: oropharyngeal mucosa clear 07/12/2018 None Full Exam - General 1994 Ears/Nose/Throat oral cavity/pharynx/larynx Overall: no masses 07/12/2018 None Full Exam - General 1994 Respiratory auscultation Overall: breath sounds clear bilaterally 07/12/2018 None Full Exam - General 1994 Respiratory respiratory effort/rhythm Overall: no retractions 07/12/2018 None Full Exam - General 1994 Respiratory respiratory effort/rhythm Overall: normal rate 07/12/2018 None Full Exam - General 1994 Cardiovascular auscultation of heart Overall: regular rate 07/12/2018 None Full Exam - General 1994 Cardiovascular auscultation of heart Overall: normal heart sounds 07/12/2018 None Full Exam - General 1994 Cardiovascular auscultation of heart Overall: no murmurs 07/12/2018 None Full Exam - General 1994 Abdomen abdominal exam Overall: no tenderness 07/12/2018 None Full Exam - General 1994 Abdomen abdominal exam Overall: normal bowel sounds 07/12/2018 None Full Exam - General 1994 Abdomen liver and spleen exam Overall: no hepatosplenomegaly 07/12/2018 None Full Exam - General 1994 Abdomen liver and spleen exam Overall: no stigmata of chronic liver disease 07/12/2018 None Full Exam - General 1994 Musculoskeletal head and neck Overall: head atraumatic 07/12/2018 None Full Exam - General 1994 Musculoskeletal head and neck Overall: cervical spine benign 07/12/2018 None Full Exam - General 1994 Neurologic gait Overall: no ataxia, no unsteadiness 07/12/2018 None Full Exam - General 1994 Neurologic cranial nerves Overall: crainial nerves 2 - 12 grossly intact 07/12/2018 None Full Exam - General 1994 Psychiatric orientation/consciousness Overall: oriented to person, place and time 07/12/2018 None Full Exam - General 1994 Psychiatric mood and affect Overall: normal mood and affect 07/12/2018 None Full Exam - General 1994 Constitutional general appearance Overall: well developed 03/08/2018 None Full Exam - General 1994 Constitutional general appearance Overall: in no acute distress 03/08/2018 None Full Exam - General 1994 Constitutional general appearance Overall: well nourished 03/08/2018 None Full Exam - General 1994 Eyes pupils and irises Overall: pupils equal, round, reactive to light and accomodation 03/08/2018 None Full Exam - General 1994 Ears/Nose/Throat otoscopic exam Overall: external auditory canals clear 03/08/2018 None Full Exam - General 1994 Ears/Nose/Throat otoscopic exam Overall: tympanic membranes clear 03/08/2018 None Full Exam - General 1994 Ears/Nose/Throat oral cavity/pharynx/larynx Overall: oral mucosa clear 03/08/2018 None Full Exam - General 1994 Ears/Nose/Throat oral cavity/pharynx/larynx Overall: oropharyngeal mucosa clear 03/08/2018 None Full Exam - General 1994 Ears/Nose/Throat oral cavity/pharynx/larynx Overall: no masses 03/08/2018 None Full Exam - General 1994 Respiratory auscultation Overall: breath sounds clear bilaterally 03/08/2018 None Full Exam - General 1994 Respiratory respiratory effort/rhythm Overall: no retractions 03/08/2018 None Full Exam - General 1994 Respiratory respiratory effort/rhythm Overall: normal rate 03/08/2018 None Full Exam - General 1994 Cardiovascular auscultation of heart Overall: regular rate 03/08/2018 None Full Exam - General 1994 Cardiovascular auscultation of heart Overall: normal heart sounds 03/08/2018 None Full Exam - General 1994 Cardiovascular auscultation of heart Overall: no murmurs 03/08/2018 None Full Exam - General 1994 Abdomen abdominal exam Overall: no tenderness 03/08/2018 None Full Exam - General 1994 Abdomen abdominal exam Overall: normal bowel sounds 03/08/2018 None Full Exam - General 1994 Abdomen liver and spleen exam Overall: no hepatosplenomegaly 03/08/2018 None Full Exam - General 1994 Abdomen liver and spleen exam Overall: no stigmata of chronic liver disease 03/08/2018 None Full Exam - General 1994 Musculoskeletal head and neck Overall: head atraumatic 03/08/2018 None Full Exam - General 1994 Musculoskeletal head and neck Overall: cervical spine benign 03/08/2018 None Full Exam - General 1994 Neurologic gait Overall: no ataxia, no unsteadiness 03/08/2018 None Full Exam - General 1994 Neurologic cranial nerves Overall: crainial nerves 2 - 12 grossly intact 03/08/2018 None Full Exam - General 1994 Psychiatric orientation/consciousness Overall: oriented to person, place and time 03/08/2018 None Full Exam - General 1994 Psychiatric mood and affect Overall: normal mood and affect 03/08/2018 None Full Exam - General 1994 Constitutional general appearance Overall: well developed 10/28/2017 None Full Exam - General 1994 Constitutional general appearance Overall: in no acute distress 10/28/2017 None Full Exam - General 1994 Constitutional general appearance Overall: well nourished 10/28/2017 None Full Exam - General 1994 Eyes pupils and irises Overall: pupils equal, round, reactive to light and accomodation 10/28/2017 None Full Exam - General 1994 Ears/Nose/Throat otoscopic exam Overall: external auditory canals clear 10/28/2017 None Full Exam - General 1994 Ears/Nose/Throat otoscopic exam Overall: tympanic membranes clear 10/28/2017 None Full Exam - General 1994 Ears/Nose/Throat oral cavity/pharynx/larynx Overall: oral mucosa clear 10/28/2017 None Full Exam - General 1995 Ears/Nose/Throat oral cavity/pharynx/larynx Overall: oropharyngeal mucosa clear 10/28/2017 None Full Exam - General 1995 Ears/Nose/Throat oral cavity/pharynx/larynx Overall: no masses 10/28/2017 None Full Exam - General 1994 Respiratory auscultation Overall: breath sounds clear bilaterally 10/28/2017 None Full Exam - General 1994 Respiratory respiratory effort/rhythm Overall: no retractions 10/28/2017 None Full Exam - General 1994 Respiratory respiratory effort/rhythm Overall: normal rate 10/28/2017 None Full Exam - General 1994 Cardiovascular auscultation of heart Overall: regular rate 10/28/2017 None Full Exam - General 1994 Cardiovascular auscultation of heart Overall: normal heart sounds 10/28/2017 None Full Exam - General 1994 Cardiovascular auscultation of heart Overall: no murmurs 10/28/2017 None Full Exam - General 1994 Musculoskeletal head and neck Overall: head atraumatic 10/28/2017 None Full Exam - General 1994 Musculoskeletal head and neck Overall: cervical spine benign 10/28/2017 None Full Exam - General 1994 Neurologic gait Overall: no ataxia, no unsteadiness 10/28/2017 None Full Exam - General 1994 Neurologic cranial nerves Overall: crainial nerves 2 - 12 grossly intact 10/28/2017 None Full Exam - General 1994 Psychiatric orientation/consciousness Overall: oriented to person, place and time 10/28/2017 None Full Exam - General 1994 Psychiatric mood and affect Overall: normal mood and affect 10/28/2017 None Full Exam - General 1994 Constitutional general appearance Overall: well developed 10/07/2017 None Full Exam - General 1994 Constitutional general appearance Overall: in no acute distress 10/07/2017 None Full Exam - General 1994 Constitutional general appearance Overall: well nourished 10/07/2017 None Full Exam - General 1994 Eyes pupils and irises Overall: pupils equal, round, reactive to light and accomodation 10/07/2017 None Full Exam - General 1994 Ears/Nose/Throat otoscopic exam Overall: external auditory canals clear 10/07/2017 None Full Exam - General 1994 Ears/Nose/Throat otoscopic exam Overall: tympanic membranes clear 10/07/2017 None Full Exam - General 1994 Ears/Nose/Throat oral cavity/pharynx/larynx Overall: oral mucosa clear 10/07/2017 None Full Exam - General 1994 Ears/Nose/Throat oral cavity/pharynx/larynx Overall: oropharyngeal mucosa clear 10/07/2017 None Full Exam - General 1994 Ears/Nose/Throat oral cavity/pharynx/larynx Overall: no masses 10/07/2017 None Full Exam - General 1994 Respiratory auscultation Overall: breath sounds clear bilaterally 10/07/2017 None Full Exam - General 1994 Respiratory respiratory effort/rhythm Overall: no retractions 10/07/2017 None Full Exam - General 1994 Respiratory respiratory effort/rhythm Overall: normal rate 10/07/2017 None Full Exam - General 1994 Cardiovascular auscultation of heart Overall: regular rate 10/07/2017 None Full Exam - General 1994 Cardiovascular auscultation of heart Overall: normal heart sounds 10/07/2017 None Full Exam - General 1994 Cardiovascular auscultation of heart Overall: no murmurs 10/07/2017 None Full Exam - General 1994 Abdomen abdominal exam Overall: no tenderness 10/07/2017 None Full Exam - General 1994 Abdomen abdominal exam Overall: normal bowel sounds 10/07/2017 None Full Exam - General 1994 Abdomen liver and spleen exam Overall: no hepatosplenomegaly 10/07/2017 None Full Exam - General 1994 Abdomen liver and spleen exam Overall: no stigmata of chronic liver disease 10/07/2017 None Full Exam - General 1994 Musculoskeletal head and neck Overall: head atraumatic 10/07/2017 None Full Exam - General 1994 Musculoskeletal head and neck Overall: cervical spine benign 10/07/2017 None Full Exam - General 1994 Neurologic gait Overall: no ataxia, no unsteadiness 10/07/2017 None Full Exam - General 1994 Neurologic cranial nerves Overall: crainial nerves 2 - 12 grossly intact 10/07/2017 None Full Exam - General 1994 Psychiatric orientation/consciousness Overall: oriented to person, place and time 10/07/2017 None Full Exam - General 1994 Psychiatric mood and affect Overall: normal mood and affect 10/07/2017 None Full Exam - General 1994 Constitutional general appearance Overall: well developed 03/26/2017 None Full Exam - General 1994 Constitutional general appearance Overall: in no acute distress 03/26/2017 None Full Exam - General 1994 Constitutional general appearance Overall: well nourished 03/26/2017 None Full Exam - General 1994 Eyes pupils and irises Overall: pupils equal, round, reactive to light and accomodation 03/26/2017 None Full Exam - General 1994 Ears/Nose/Throat otoscopic exam Overall: external auditory canals clear 03/26/2017 None Full Exam - General 1994 Ears/Nose/Throat otoscopic exam Overall: tympanic membranes clear 03/26/2017 None Full Exam - General 1994 Ears/Nose/Throat oral cavity/pharynx/larynx Overall: oral mucosa clear 03/26/2017 None Full Exam - General 1994 Ears/Nose/Throat oral cavity/pharynx/larynx Overall: oropharyngeal mucosa clear 03/26/2017 None Full Exam - General 1994 Ears/Nose/Throat oral cavity/pharynx/larynx Overall: no masses 03/26/2017 None Full Exam - General 1994 Respiratory auscultation Overall: breath sounds clear bilaterally 03/26/2017 None Full Exam - General 1994 Respiratory respiratory effort/rhythm Overall: no retractions 03/26/2017 None Full Exam - General 1994 Respiratory respiratory effort/rhythm Overall: normal rate 03/26/2017 None Full Exam - General 1994 Cardiovascular auscultation of heart Overall: regular rate 03/26/2017 None Full Exam - General 1994 Cardiovascular auscultation of heart Overall: normal heart sounds 03/26/2017 None Full Exam - General 1994 Cardiovascular auscultation of heart Overall: no murmurs 03/26/2017 None Full Exam - General 1994 Chest/Breast breast and axillae palpation Overall: breasts non- tender 03/26/2017 None Full Exam - General 1994 Chest/Breast breast and axillae palpation Overall: axillae non- tender 03/26/2017 None Full Exam - General 1994 Chest/Breast breast and axillae palpation Overall: no nipple discharge 03/26/2017 None Full Exam - General 1994 Abdomen abdominal exam Overall: no tenderness 03/26/2017 None Full Exam - General 1994 Abdomen abdominal exam Overall: normal bowel sounds 03/26/2017 None Full Exam - General 1994 Abdomen liver and spleen exam Overall: no hepatosplenomegaly 03/26/2017 None Full Exam - General 1994 Abdomen liver and spleen exam Overall: no stigmata of chronic liver disease 03/26/2017 None Full Exam - General 1994 Musculoskeletal head and neck Overall: head atraumatic 03/26/2017 None Full Exam - General 1994 Musculoskeletal head and neck Overall: cervical spine benign 03/26/2017 None Full Exam - General 1994 Neurologic gait Overall: no ataxia, no unsteadiness 03/26/2017 None Full Exam - General 1994 Neurologic cranial nerves Overall: crainial nerves 2 - 12 grossly intact 03/26/2017 None Full Exam - General 1994 Psychiatric orientation/consciousness Overall: oriented to person, place and time 03/26/2017 None Full Exam - General 1994 Psychiatric mood and affect Overall: normal mood and affect 03/26/2017 None Full Exam - General 1994 Lymphatic neck nodes Overall: anterior cervical chain benign 03/26/2017 None Full Exam - General 1994 Lymphatic neck nodes Overall: posterior cervical chain benign 03/26/2017 None Full Exam - General 1994 Constitutional general appearance Overall: well developed 09/25/2016 None Full Exam - General 1994 Constitutional general appearance Overall: in no acute distress 09/25/2016 None Full Exam - General 1994 Constitutional general appearance Overall: well nourished 09/25/2016 None Full Exam - General 1994 Eyes pupils and irises Overall: pupils equal, round, reactive to light and accomodation 09/25/2016 None Full Exam - General 1994 Ears/Nose/Throat otoscopic exam Overall: external auditory canals clear 09/25/2016 None Full Exam - General 1994 Ears/Nose/Throat otoscopic exam Overall: tympanic membranes clear 09/25/2016 None Full Exam - General 1994 Ears/Nose/Throat oral cavity/pharynx/larynx Overall: oral mucosa clear 09/25/2016 None Full Exam - General 1994 Ears/Nose/Throat oral cavity/pharynx/larynx Overall: oropharyngeal mucosa clear 09/25/2016 None Full Exam - General 1994 Ears/Nose/Throat oral cavity/pharynx/larynx Overall: no masses 09/25/2016 None Full Exam - General 1994 Respiratory auscultation Overall: breath sounds clear bilaterally 09/25/2016 None Full Exam - General 1994 Respiratory respiratory effort/rhythm Overall: no retractions 09/25/2016 None Full Exam - General 1994 Respiratory respiratory effort/rhythm Overall: normal rate 09/25/2016 None Full Exam - General 1994 Cardiovascular auscultation of heart Overall: regular rate 09/25/2016 None Full Exam - General 1994 Cardiovascular auscultation of heart Overall: normal heart sounds 09/25/2016 None Full Exam - General 1994 Cardiovascular auscultation of heart Overall: no murmurs 09/25/2016 None Full Exam - General 1994 Chest/Breast breast and axillae palpation Overall: breasts non- tender 09/25/2016 None Full Exam - General 1994 Chest/Breast breast and axillae palpation Overall: axillae non- tender 09/25/2016 None Full Exam - General 1994 Chest/Breast breast and axillae palpation Overall: no nipple discharge 09/25/2016 None Full Exam - General 1994 Abdomen abdominal exam Overall: no tenderness 09/25/2016 None Full Exam - General 1994 Abdomen abdominal exam Overall: normal bowel sounds 09/25/2016 None Full Exam - General 1994 Abdomen liver and spleen exam Overall: no hepatosplenomegaly 09/25/2016 None Full Exam - General 1994 Abdomen liver and spleen exam Overall: no stigmata of chronic liver disease 09/25/2016 None Full Exam - General 1994 Musculoskeletal head and neck Overall: head atraumatic 09/25/2016 None Full Exam - General 1994 Musculoskeletal head and neck Overall: cervical spine benign 09/25/2016 None Full Exam - General 1994 Neurologic gait Overall: no ataxia, no unsteadiness 09/25/2016 None Full Exam - General 1994 Neurologic cranial nerves Overall: crainial nerves 2 - 12 grossly intact 09/25/2016 None Full Exam - General 1994 Psychiatric orientation/consciousness Overall: oriented to person, place and time 09/25/2016 None Full Exam - General 1994 Psychiatric mood and affect Overall: normal mood and affect 09/25/2016 None Full Exam - General 1994 Constitutional general appearance Overall: well developed 01/03/2016 None Full Exam - General 1994 Constitutional general appearance Overall: in no acute distress 01/03/2016 None Full Exam - General 1994 Constitutional general appearance Overall: well nourished 01/03/2016 None Full Exam - General 1994 Eyes pupils and irises Overall: pupils equal, round, reactive to light and accomodation 01/03/2016 None Full Exam - General 1994 Ears/Nose/Throat otoscopic exam Overall: external auditory canals clear 01/03/2016 None Full Exam - General 1994 Ears/Nose/Throat otoscopic exam Overall: tympanic membranes clear 01/03/2016 None Full Exam - General 1994 Ears/Nose/Throat oral cavity/pharynx/larynx Overall: oral mucosa clear 01/03/2016 None Full Exam - General 1994 Ears/Nose/Throat oral cavity/pharynx/larynx Overall: oropharyngeal mucosa clear 01/03/2016 None Full Exam - General 1994 Ears/Nose/Throat oral cavity/pharynx/larynx Overall: no masses 01/03/2016 None Full Exam - General 1994 Respiratory auscultation Overall: breath sounds clear bilaterally 01/03/2016 None Full Exam - General 1994 Respiratory respiratory effort/rhythm Overall: no retractions 01/03/2016 None Full Exam - General 1994 Respiratory respiratory effort/rhythm Overall: normal rate 01/03/2016 None Full Exam - General 1994 Cardiovascular auscultation of heart Overall: regular rate 01/03/2016 None Full Exam - General 1994 Cardiovascular auscultation of heart Overall: normal heart sounds 01/03/2016 None Full Exam - General 1994 Cardiovascular auscultation of heart Overall: no murmurs 01/03/2016 None Full Exam - General 1994 Chest/Breast breast and axillae palpation Overall: breasts non- tender 01/03/2016 None Full Exam - General 1994 Chest/Breast breast and axillae palpation Overall: axillae non- tender 01/03/2016 None Full Exam - General 1994 Chest/Breast breast and axillae palpation Overall: no nipple discharge 01/03/2016 None Full Exam - General 1994 Abdomen abdominal exam Overall: no tenderness 01/03/2016 None Full Exam - General 1994 Abdomen abdominal exam Overall: normal bowel sounds 01/03/2016 None Full Exam - General 1994 Abdomen liver and spleen exam Overall: no hepatosplenomegaly 01/03/2016 None Full Exam - General 1994 Abdomen liver and spleen exam Overall: no stigmata of chronic liver disease 01/03/2016 None Full Exam - General 1994 Musculoskeletal head and neck Overall: head atraumatic 01/03/2016 None Full Exam - General 1994 Musculoskeletal head and neck Overall: cervical spine benign 01/03/2016 None Full Exam - General 1994 Neurologic gait Overall: no ataxia, no unsteadiness 01/03/2016 None Full Exam - General 1994 Neurologic cranial nerves Overall: crainial nerves 2 - 12 grossly intact 01/03/2016 None Full Exam - General 1994 Psychiatric orientation/consciousness Overall: oriented to person, place and time 01/03/2016 None Full Exam - General 1994 Psychiatric mood and affect Overall: normal mood and affect 01/03/2016 None Full Exam - General 1994 Constitutional general appearance Overall: well developed 07/30/2015 None Full Exam - General 1994 Constitutional general appearance Overall: in no acute distress 07/30/2015 None Full Exam - General 1994 Constitutional general appearance Overall: well nourished 07/30/2015 None Full Exam - General 1994 Eyes pupils and irises Overall: pupils equal, round, reactive to light and accomodation 07/30/2015 None Full Exam - General 1994 Ears/Nose/Throat otoscopic exam Overall: external auditory canals clear 07/30/2015 None Full Exam - General 1994 Ears/Nose/Throat otoscopic exam Overall: tympanic membranes clear 07/30/2015 None Full Exam - General 1994 Ears/Nose/Throat oral cavity/pharynx/larynx Overall: oral mucosa clear 07/30/2015 None Full Exam - General 1994 Ears/Nose/Throat oral cavity/pharynx/larynx Overall: oropharyngeal mucosa clear 07/30/2015 None Full Exam - General 1994 Ears/Nose/Throat oral cavity/pharynx/larynx Overall: no masses 07/30/2015 None Full Exam - General 1994 Respiratory auscultation Overall: breath sounds clear bilaterally 07/30/2015 None Full Exam - General 1994 Respiratory respiratory effort/rhythm Overall: no retractions 07/30/2015 None Full Exam - General 1994 Respiratory respiratory effort/rhythm Overall: normal rate 07/30/2015 None Full Exam - General 1994 Cardiovascular auscultation of heart Overall: regular rate 07/30/2015 None Full Exam - General 1994 Cardiovascular auscultation of heart Overall: normal heart sounds 07/30/2015 None Full Exam - General 1994 Cardiovascular auscultation of heart Overall: no murmurs 07/30/2015 None Full Exam - General 1994 Abdomen abdominal exam Overall: no tenderness 07/30/2015 None Full Exam - General 1994 Abdomen abdominal exam Overall: normal bowel sounds 07/30/2015 None Full Exam - General 1994 Abdomen liver and spleen exam Overall: no hepatosplenomegaly 07/30/2015 None Full Exam - General 1994 Abdomen liver and spleen exam Overall: no stigmata of chronic liver disease 07/30/2015 None Full Exam - General 1994 Musculoskeletal head and neck Overall: head atraumatic 07/30/2015 None Full Exam - General 1994 Musculoskeletal head and neck Overall: cervical spine benign 07/30/2015 None Full Exam - General 1994 Neurologic gait Overall: no ataxia, no unsteadiness 07/30/2015 None Full Exam - General 1994 Neurologic cranial nerves Overall: crainial nerves 2 - 12 grossly intact 07/30/2015 None Full Exam - General 1994 Psychiatric orientation/consciousness Overall: oriented to person, place and time 07/30/2015 None Full Exam - General 1994 Psychiatric mood and affect Overall: normal mood and affect 07/30/2015 None Full Exam - General 1994 Chest/Breast breast and axillae palpation Overall: breasts non- tender 07/30/2015 None Full Exam - General 1994 Chest/Breast breast and axillae palpation Overall: axillae non- tender 07/30/2015 None Full Exam - General 1994 Chest/Breast breast and axillae palpation Overall: no nipple discharge 07/30/2015 None Full Exam - General 1994 Constitutional general appearance Overall: well developed 05/11/2014 None Full Exam - General 1994 Constitutional general appearance Overall: in no acute distress 05/11/2014 None Full Exam - General 1994 Constitutional general appearance Overall: well nourished 05/11/2014 None Full Exam - General 1994 Eyes pupils and irises Overall: pupils equal, round, reactive to light and accomodation 05/11/2014 None Full Exam - General 1994 Ears/Nose/Throat otoscopic exam Overall: external auditory canals clear 05/11/2014 None Full Exam - General 1994 Ears/Nose/Throat otoscopic exam Overall: tympanic membranes clear 05/11/2014 None Full Exam - General 1994 Ears/Nose/Throat oral cavity/pharynx/larynx Overall: oral mucosa clear 05/11/2014 None Full Exam - General 1994 Ears/Nose/Throat oral cavity/pharynx/larynx Overall: oropharyngeal mucosa clear 05/11/2014 None Full Exam - General 1994 Ears/Nose/Throat oral cavity/pharynx/larynx Overall: no masses 05/11/2014 None Full Exam - General 1994 Respiratory auscultation Overall: breath sounds clear bilaterally 05/11/2014 None Full Exam - General 1994 Respiratory respiratory effort/rhythm Overall: no retractions 05/11/2014 None Full Exam - General 1994 Respiratory respiratory effort/rhythm Overall: normal rate 05/11/2014 None Full Exam - General 1994 Cardiovascular auscultation of heart Overall: regular rate 05/11/2014 None Full Exam - General 1994 Cardiovascular auscultation of heart Overall: normal heart sounds 05/11/2014 None Full Exam - General 1994 Cardiovascular auscultation of heart Overall: no murmurs 05/11/2014 None Full Exam - General 1994 Abdomen abdominal exam Overall: no tenderness 05/11/2014 None Full Exam - General 1994 Abdomen abdominal exam Overall: normal bowel sounds 05/11/2014 None Full Exam - General 1994 Abdomen liver and spleen exam Overall: no hepatosplenomegaly 05/11/2014 None Full Exam - General 1994 Abdomen liver and spleen exam Overall: no stigmata of chronic liver disease 05/11/2014 None Full Exam - General 1994 Musculoskeletal head and neck Overall: head atraumatic 05/11/2014 None Full Exam - General 1994 Musculoskeletal head and neck Overall: cervical spine benign 05/11/2014 None Full Exam - General 1994 Neurologic gait Overall: no ataxia, no unsteadiness 05/11/2014 None Full Exam - General 1994 Neurologic cranial nerves Overall: crainial nerves 2 - 12 grossly intact 05/11/2014 None Full Exam - General 1994 Psychiatric orientation/consciousness Overall: oriented to person, place and time 05/11/2014 None Full Exam - General 1994 Psychiatric mood and affect Overall: normal mood and affect 05/11/2014 None Full Exam - General 1994 Constitutional general appearance Overall: well nourished 02/07/2013 None Full Exam - General 1994 Constitutional general appearance Overall: well developed 02/07/2013 None Full Exam - General 1994 Constitutional general appearance Overall: in no acute distress 02/07/2013 None Full Exam - General 1994 Eyes pupils and irises Overall: pupils equal, round, reactive to light and accomodation 02/07/2013 None Full Exam - General 1994 Ears/Nose/Throat otoscopic exam Overall: external auditory canals clear 02/07/2013 None Full Exam - General 1995 Ears/Nose/Throat otoscopic exam Overall: tympanic membranes clear 02/07/2013 None Full Exam - General 1994 Ears/Nose/Throat oral cavity/pharynx/larynx Overall: oral mucosa clear 02/07/2013 None Full Exam - General 1994 Ears/Nose/Throat oral cavity/pharynx/larynx Overall: oropharyngeal mucosa clear 02/07/2013 None Full Exam - General 1994 Ears/Nose/Throat oral cavity/pharynx/larynx Overall: no masses 02/07/2013 None Full Exam - General 1994 Respiratory auscultation Overall: breath sounds clear bilaterally 02/07/2013 None Full Exam - General 1994 Respiratory respiratory effort/rhythm Overall: no retractions 02/07/2013 None Full Exam - General 1994 Respiratory respiratory effort/rhythm Overall: normal rate 02/07/2013 None Full Exam - General 1994 Cardiovascular auscultation of heart Overall: regular rate 02/07/2013 None Full Exam - General 1994 Cardiovascular auscultation of heart Overall: normal heart sounds 02/07/2013 None Full Exam - General 1994 Cardiovascular auscultation of heart Overall: no murmurs 02/07/2013 None Full Exam - General 1994 Abdomen abdominal exam Overall: no tenderness 02/07/2013 None Full Exam - General 1994 Abdomen abdominal exam Overall: normal bowel sounds 02/07/2013 None Full Exam - General 1994 Abdomen liver and spleen exam Overall: no hepatosplenomegaly 02/07/2013 None Full Exam - General 1994 Abdomen liver and spleen exam Overall: no stigmata of chronic liver disease 02/07/2013 None Full Exam - General 1994 Musculoskeletal head and neck Overall: head atraumatic 02/07/2013 None Full Exam - General 1994 Musculoskeletal head and neck Overall: cervical spine benign 02/07/2013 None Full Exam - General 1994 Neurologic gait Overall: no ataxia, no unsteadiness 02/07/2013 None Full Exam - General 1994 Neurologic cranial nerves Overall: crainial nerves 2 - 12 grossly intact 02/07/2013 None Full Exam - General 1994 Psychiatric orientation/consciousness Overall: oriented to person, place and time 02/07/2013 None Full Exam - General 1994 Psychiatric mood and affect Overall: normal mood and affect 02/07/2013 None Full Exam - General 1994 Constitutional general appearance Overall: well developed 07/28/2012 None Full Exam - General 1994 Constitutional general appearance Overall: in no acute distress 07/28/2012 None Full Exam - General 1994 Constitutional general appearance Overall: well nourished 07/28/2012 None Full Exam - General 1994 Eyes pupils and irises Overall: pupils equal, round, reactive to light and accomodation 07/28/2012 None Full Exam - General 1994 Ears/Nose/Throat otoscopic exam Overall: external auditory canals clear 07/28/2012 None Full Exam - General 1994 Ears/Nose/Throat otoscopic exam Overall: tympanic membranes clear 07/28/2012 None Full Exam - General 1994 Ears/Nose/Throat oral cavity/pharynx/larynx Overall: oral mucosa clear 07/28/2012 None Full Exam - General 1994 Ears/Nose/Throat oral cavity/pharynx/larynx Overall: oropharyngeal mucosa clear 07/28/2012 None Full Exam - General 1994 Ears/Nose/Throat oral cavity/pharynx/larynx Overall: no masses 07/28/2012 None Full Exam - General 1994 Respiratory auscultation Overall: breath sounds clear bilaterally 07/28/2012 None Full Exam - General 1994 Respiratory respiratory effort/rhythm Overall: no retractions 07/28/2012 None Full Exam - General 1994 Respiratory respiratory effort/rhythm Overall: normal rate 07/28/2012 None Full Exam - General 1994 Cardiovascular auscultation of heart Overall: regular rate 07/28/2012 None Full Exam - General 1994 Cardiovascular auscultation of heart Overall: normal heart sounds 07/28/2012 None Full Exam - General 1994 Cardiovascular auscultation of heart Overall: no murmurs 07/28/2012 None Full Exam - General 1994 Abdomen abdominal exam Overall: no tenderness 07/28/2012 None Full Exam - General 1994 Abdomen abdominal exam Overall: normal bowel sounds 07/28/2012 None Full Exam - General 1994 Abdomen liver and spleen exam Overall: no hepatosplenomegaly 07/28/2012 None Full Exam - General 1994 Abdomen liver and spleen exam Overall: no stigmata of chronic liver disease 07/28/2012 None Full Exam - General 1994 Musculoskeletal head and neck Overall: head atraumatic 07/28/2012 None Full Exam - General 1994 Musculoskeletal head and neck Overall: cervical spine benign 07/28/2012 None Full Exam - General 1994 Neurologic gait Overall: no ataxia, no unsteadiness 07/28/2012 None Full Exam - General 1994 Neurologic cranial nerves Overall: crainial nerves 2 - 12 grossly intact 07/28/2012 None Full Exam - General 1994 Psychiatric orientation/consciousness Overall: oriented to person, place and time 07/28/2012 None Full Exam - General 1994 Psychiatric mood and affect Overall: normal mood and affect 07/28/2012 None Full Exam - General 1994 Musculoskeletal lower extremity Inspection - foot: swelling 07/28/2012 at the great to - minor swelling at the DIP Full Exam - General 1994 Ears/Nose/Throat oral cavity/pharynx/larynx Overall: no masses 04/13/2012 None Full Exam - General 1994 Respiratory auscultation Overall: breath sounds clear bilaterally 04/13/2012 None Full Exam - General 1994 Respiratory respiratory effort/rhythm Overall: no retractions 04/13/2012 None Full Exam - General 1994 Respiratory respiratory effort/rhythm Overall: normal rate 04/13/2012 None Full Exam - General 1994 Cardiovascular auscultation of heart Overall: regular rate 04/13/2012 None Full Exam - General 1994 Cardiovascular auscultation of heart Overall: normal heart sounds 04/13/2012 None Full Exam - General 1994 Cardiovascular auscultation of heart Overall: no murmurs 04/13/2012 None Full Exam - General 1994 Abdomen abdominal exam Overall: no tenderness 04/13/2012 None Full Exam - General 1994 Abdomen abdominal exam Overall: normal bowel sounds 04/13/2012 None Full Exam - General 1994 Abdomen liver and spleen exam Overall: no hepatosplenomegaly 04/13/2012 None Full Exam - General 1994 Abdomen liver and spleen exam Overall: no stigmata of chronic liver disease 04/13/2012 None Full Exam - General 1994 Musculoskeletal head and neck Overall: head atraumatic 04/13/2012 None Full Exam - General 1994 Musculoskeletal head and neck Overall: cervical spine benign 04/13/2012 None Full Exam - General 1994 Neurologic gait Overall: no ataxia, no unsteadiness 04/13/2012 None Full Exam - General 1994 Constitutional general appearance Overall: well nourished 04/13/2012 None Full Exam - General 1994 Constitutional general appearance Overall: well developed 04/13/2012 None Full Exam - General 1994 Constitutional general appearance Overall: in no acute distress 04/13/2012 None Full Exam - General 1994 Eyes pupils and irises Overall: pupils equal, round, reactive to light and accomodation 04/13/2012 None Full Exam - General 1994 Ears/Nose/Throat otoscopic exam Overall: external auditory canals clear 04/13/2012 None Full Exam - General 1994 Ears/Nose/Throat otoscopic exam Overall: tympanic membranes clear 04/13/2012 None Full Exam - General 1994 Ears/Nose/Throat oral cavity/pharynx/larynx Overall: oral mucosa clear 04/13/2012 None Full Exam - General 1994 Ears/Nose/Throat oral cavity/pharynx/larynx Overall: oropharyngeal mucosa clear 04/13/2012 None Full Exam - General 1994 Neurologic cranial nerves Overall: crainial nerves 2 - 12 grossly intact 04/13/2012 None Full Exam - General 1994 Psychiatric orientation/consciousness Overall: oriented to person, place and time 04/13/2012 None Full Exam - General 1994 Psychiatric mood and affect Overall: normal mood and affect 04/13/2012 None Full Exam - General 1994 Abdomen abdominal exam Overall: normal bowel sounds 09/24/2011 None Full Exam - General 1994 Abdomen liver and spleen exam Overall: no hepatosplenomegaly 09/24/2011 None Full Exam - General 1994 Abdomen liver and spleen exam Overall: no stigmata of chronic liver disease 09/24/2011 None Full Exam - General 1994 Musculoskeletal head and neck Overall: head atraumatic 09/24/2011 None Full Exam - General 1995 Musculoskeletal head and neck Overall: cervical spine benign 09/24/2011 None Full Exam - General 1995 Neurologic gait Overall: no ataxia, no unsteadiness 09/24/2011 None Full Exam - General 1995 Neurologic cranial nerves Overall: crainial nerves 2 - 12 grossly intact 09/24/2011 None Full Exam - General 1995 Psychiatric orientation/consciousness Overall: oriented to person, place and time 09/24/2011 None Full Exam - General 1995 Psychiatric mood and affect Overall: normal mood and affect 09/24/2011 None Full Exam - General 1995 Eyes pupils and irises Overall: pupils equal, round, reactive to light and accomodation 09/24/2011 None Full Exam - General 1995 Ears/Nose/Throat otoscopic exam Overall: external auditory canals clear 09/24/2011 None Full Exam - General 1995 Ears/Nose/Throat otoscopic exam Overall: tympanic membranes clear 09/24/2011 None Full Exam - General 1995 Ears/Nose/Throat oral cavity/pharynx/larynx Overall: oral mucosa clear 09/24/2011 None Full Exam - General 1995 Ears/Nose/Throat oral cavity/pharynx/larynx Overall: oropharyngeal mucosa clear 09/24/2011 None Full Exam - General 1995 Ears/Nose/Throat oral cavity/pharynx/larynx Overall: no masses 09/24/2011 None Full Exam - General 1994 Respiratory auscultation Overall: breath sounds clear bilaterally 09/24/2011 None Full Exam - General 1994 Respiratory respiratory effort/rhythm Overall: no retractions 09/24/2011 None Full Exam - General 1994 Respiratory respiratory effort/rhythm Overall: normal rate 09/24/2011 None Full Exam - General 1994 Cardiovascular auscultation of heart Overall: regular rate 09/24/2011 None Full Exam - General 1994 Cardiovascular auscultation of heart Overall: normal heart sounds 09/24/2011 None Full Exam - General 1994 Cardiovascular auscultation of heart Overall: no murmurs 09/24/2011 None Full Exam - General 1994 Abdomen abdominal exam Overall: no tenderness 09/24/2011 None Full Exam - General 1994 Constitutional general appearance Overall: well nourished 09/24/2011 None Full Exam - General 1994 Constitutional general appearance Overall: well developed 09/24/2011 None Full Exam - General 1994 Constitutional general appearance Overall: in no acute distress 09/24/2011 None Full Exam - General 1994 Cardiovascular auscultation of heart Overall: no murmurs 06/25/2011 None Full Exam - General 1994 Respiratory respiratory effort/rhythm Overall: normal rate 06/25/2011 None Full Exam - General 1994 Respiratory respiratory effort/rhythm Overall: no retractions 06/25/2011 None Full Exam - General 1994 Respiratory auscultation Overall: breath sounds clear bilaterally 06/25/2011 None Full Exam - General 1994 Constitutional general appearance Overall: well nourished 06/25/2011 None Full Exam - General 1994 Abdomen abdominal exam Overall: no tenderness 06/25/2011 None Full Exam - General 1994 Abdomen abdominal exam Overall: normal bowel sounds 06/25/2011 None Full Exam - General 1994 Abdomen liver and spleen exam Overall: no hepatosplenomegaly 06/25/2011 None Full Exam - General 1994 Abdomen liver and spleen exam Overall: no stigmata of chronic liver disease 06/25/2011 None Full Exam - General 1994 Cardiovascular auscultation of heart Overall: regular rate 06/25/2011 None Full Exam - General 1994 Cardiovascular auscultation of heart Overall: normal heart sounds 06/25/2011 None Full Exam - General 1994 Constitutional general appearance Overall: well developed 06/25/2011 None Full Exam - General 1994 Constitutional general appearance Overall: in no acute distress 06/25/2011 None Full Exam - General 1994 Eyes pupils and irises Overall: pupils equal, round, reactive to light and accomodation 06/25/2011 None Full Exam - General 1994 Ears/Nose/Throat otoscopic exam Overall: tympanic membranes clear 06/25/2011 None Full Exam - General 1994 Ears/Nose/Throat otoscopic exam Overall: external auditory canals clear 06/25/2011 None Full Exam - General 1994 Ears/Nose/Throat oral cavity/pharynx/larynx Overall: oropharyngeal mucosa clear 06/25/2011 None Full Exam - General 1994 Ears/Nose/Throat oral cavity/pharynx/larynx Overall: no masses 06/25/2011 None Full Exam - General 1994 Ears/Nose/Throat oral cavity/pharynx/larynx Overall: oral mucosa clear 06/25/2011 None Full Exam - General 1994 Psychiatric orientation/consciousness Overall: oriented to person, place and time 06/25/2011 None Full Exam - General 1994 Psychiatric mood and affect Overall: normal mood and affect 06/25/2011 None Full Exam - General 1994 Neurologic gait Overall: no ataxia, no unsteadiness 06/25/2011 None Full Exam - General 1994 Neurologic cranial nerves Overall: crainial nerves 2 - 12 grossly intact 06/25/2011 None Full Exam - General 1994 Musculoskeletal head and neck Overall: cervical spine benign 06/25/2011 None Full Exam - General 1994 Musculoskeletal head and neck Overall: head atraumatic 06/25/2011 None Procedures Procedure Codes Date IMMUNIZATION ADMIN CPT- 4: 01768 07/04/2015 FLU VACC PRSV FREE INC ANTIG Formatting Model/CDA Sections, Assigned to/Carol Leon CPT-4: [id number] 07/04/2015 IMMUNIZATION ADMIN CPT- 4: 39837 05/11/2014 FLU VAC NO PRSV 4 GABRIEL 3 YRS+ CPT-4: 40156 05/11/2014 ZOSTER VACC SC (No charge, patient supplied vaccine) CPT-4: 37023QX 09/24/2011 Pneumococcal Polysaccharide Vaccine, 23-Valent, Ad CPT-4: 86612 06/25/2011 ADMIN PNEUMOCOCCAL VACCINE SNOMED CT: [id number] CPT-4: G0009 06/25/2011 Vital Signs Date Vital 02/03/2019 Blood Pressure 1: 124/70 Code: 8480-6 BMI: 24.9 Code: 85070-0 Heart Rate 1: 58 bpm Height: 5'2" SpO2: 97% Weight: 136 lbs 07/12/2018 Blood Pressure 1: 140/86 Code: 8480-6 BMI: 25.6 Code: 87066-9 Heart Rate 1: 69 bpm Height: 5'2" SpO2: 99% Weight: 140 lbs 03/08/2018 Blood Pressure 1: 140/74 Code: 8480-6 BMI: 24.5 Code: 85927-9 Heart Rate 1: 70 bpm Height: 5'2" SpO2: 98% Weight: 134 lbs 10/28/2017 Blood Pressure 1: 132/74 Code: 8480-6 BMI: 24.1 Code: 56934-2 Heart Rate 1: 66 bpm Height: 5'2" SpO2: 99% Weight: 132 lbs 10/07/2017 Blood Pressure 1: 184/70 Code: 8480-6 BMI: 24.5 Code: 73518-8 Heart Rate 1: 64 bpm Height: 5'2" SpO2: 99% Weight: 134 lbs 03/26/2017 Blood Pressure 1: 144/84 Code: 8480-6 BMI: 23.0 Code: 49174-1 Heart Rate 1: 72 bpm Height: 5'2" SpO2: 98% Weight: 126 lbs 09/25/2016 Blood Pressure 1: 146/78 Code: 8480-6 BMI: 22.7 Code: 46903-6 Heart Rate 1: 71 bpm Height: 5'2" SpO2: 97% Weight: 124 lbs 01/03/2016 Blood Pressure 1: 160/90 Code: 8480-6 BMI: 24.1 Code: 29073-3 Heart Rate 1: 83 bpm Height: 5'2" SpO2: 97% Weight: 131 lbs 8 oz 07/30/2015 Blood Pressure 1: 145/82 Code: 8480-6 BMI: 25.1 Code: 43724-0 Heart Rate 1: 72 bpm Height: 5'2" SpO2: 98% Weight: 137 lbs 05/11/2014 Blood Pressure 1: 138/88 Code: 8480-6 BMI: 24.9 Code: 10338-0 Heart Rate 1: 84 bpm Height: 5'2" Weight: 136 lbs 02/07/2013 Blood Pressure 1: 102/70 Code: 8480-6 BMI: 25.8 Code: 43096-1 Heart Rate 1: 76 bpm Height: 5'2" Weight: 141 lbs 07/28/2012 Blood Pressure 1: 118/62 Code: 8480-6 Heart Rate 1: 76 bpm Respiratory Rate: 16 bpm Weight: 140 lbs 04/13/2012 Blood Pressure 1: 108/72 Code: 8480-6 Heart Rate 1: 64 bpm Respiratory Rate: 16 bpm Weight: 142 lbs 09/24/2011 Blood Pressure 1: 122/68 Code: 8480-6 Heart Rate 1: 64 bpm Respiratory Rate: 16 bpm Weight: 145 lbs 06/25/2011 Blood Pressure 1: 134/76 Code: 8480-6 BMI: 25.2 Code: 12612-7 Heart Rate 1: 72 bpm Height: 5'2" Respiratory Rate: 16 bpm Weight: 138 lbs Functional Status No Functional Status data History of Present Illness Symptom Name Status Result Effective Date Notes Location lumbar-sacral spine 02/03/2019 None Quality chronic 02/03/2019 None Onset of Symptom _ years ago 02/03/2019 None Pertinent Findings Denies motor vehicle accident 02/03/2019 None Pertinent Findings Denies weakness 02/03/2019 None Pertinent Findings Denies sleep disturbance 02/03/2019 None Quality chronic 02/03/2019 None Quality primary hypertension 02/03/2019 None Onset and Resolution ongoing 02/03/2019 None Onset of Symptom during adulthood 02/03/2019 None Blood Pressure Values patient checking blood pressure at home - did not bring in readings 02/03/2019 -Checks occasionally Alleviating Factors medication 02/03/2019 None Exacerbating Factors stress 02/03/2019 None Pertinent Findings Denies dizziness 02/03/2019 None Pertinent Findings Denies dyspnea 02/03/2019 None Pertinent Findings Denies edema 02/03/2019 None hypertension Quality chronic 07/12/2018 None hypertension Quality primary hypertension 07/12/2018 None hypertension Onset and Resolution ongoing 07/12/2018 None hypertension Onset of Symptom during adulthood 07/12/2018 None hypertension Blood Pressure Values patient checking blood pressure at home - did not bring in readings 07/12/2018 -Checks occasionally hypertension Alleviating Factors medication 07/12/2018 None hypertension Exacerbating Factors stress 07/12/2018 None hypertension Pertinent Findings Denies dizziness 07/12/2018 None hypertension Pertinent Findings Denies dyspnea 07/12/2018 None hypertension Pertinent Findings Denies edema 07/12/2018 None hypertension Quality chronic 03/08/2018 None hypertension Quality primary hypertension 03/08/2018 None hypertension Onset and Resolution ongoing 03/08/2018 None hypertension Onset of Symptom during adulthood 03/08/2018 None hypertension Blood Pressure Values patient checking blood pressure at home - did not bring in readings 03/08/2018 None hypertension Alleviating Factors medication 03/08/2018 None hypertension Exacerbating Factors stress 03/08/2018 None hypertension Pertinent Findings Denies dizziness 03/08/2018 None hypertension Pertinent Findings Denies edema 03/08/2018 None hypertension Pertinent Findings Denies dyspnea 03/08/2018 None hypertension Quality chronic 10/28/2017 None hypertension Quality primary hypertension 10/28/2017 None hypertension Onset and Resolution ongoing 10/28/2017 None hypertension Onset of Symptom during adulthood 10/28/2017 None hypertension Alleviating Factors medication 10/28/2017 None hypertension Exacerbating Factors stress 10/28/2017 None hypertension Pertinent Findings Denies edema 10/28/2017 None hypertension Blood Pressure Values patient checking blood pressure at home - did not bring in readings 10/28/2017 None hypertension Pertinent Findings Denies dizziness 10/28/2017 None hypertension Quality chronic 10/07/2017 None hypertension Onset and Resolution ongoing 10/07/2017 None hypertension Onset of Symptom during adulthood 10/07/2017 None hypertension Alleviating Factors medication 10/07/2017 None hypertension Exacerbating Factors stress 10/07/2017 None hypertension Quality primary hypertension 10/07/2017 None hyperlipidemia Onset and Resolution gradual in onset 10/07/2017 None hyperlipidemia Onset of Symptom during adulthood 10/07/2017 None hyperlipidemia Alleviating Factors medication 10/07/2017 None hyperlipidemia Exacerbating Factors diet 10/07/2017 None hypertension Blood Pressure Values pt checking blood pressure - see scanned document 10/07/2017 None hypertension Pertinent Findings Denies edema 10/07/2017 None hypertension Quality chronic 03/26/2017 None hypertension Onset and Resolution ongoing 03/26/2017 None hypertension Onset of Symptom during adulthood 03/26/2017 None hypertension Blood Pressure Values patient checking blood pressure at home - did not bring in readings 03/26/2017 None hypertension Alleviating Factors medication 03/26/2017 None hypertension Exacerbating Factors stress 03/26/2017 None hypertension Quality chronic 09/25/2016 None hypertension Quality stable 09/25/2016 None hypertension Onset and Resolution ongoing 09/25/2016 None hypertension Blood Pressure Values patient checking blood pressure at home - did not bring in readings 09/25/2016 None hypertension Alleviating Factors medication 09/25/2016 None hypertension Pertinent Findings Denies anxiety 09/25/2016 None hypertension Pertinent Findings Denies confusion 09/25/2016 None hypertension Pertinent Findings Denies decreased energy 09/25/2016 None hypertension Pertinent Findings Denies dizziness 09/25/2016 None hypertension Pertinent Findings Denies dyspnea 09/25/2016 None hypertension Pertinent Findings Denies edema 09/25/2016 None urinary incontinence Quality improving 09/25/[address] Graham and had stimulation treatments done which has greatly improved the incontinence urinary incontinence Onset of Symptom 6-7 years ago 09/25/2016 None urinary incontinence Triggers no known associated factors 09/25/2016 None urinary incontinence Pertinent Findings Denies back pain 09/25/2016 None urinary incontinence Pertinent Findings Denies bladder pain 09/25/2016 None urinary incontinence Pertinent Findings urinary urgency 09/25/2016 None urinary incontinence Onset and Resolution resolved 09/25/2016 None mole check Location-Major on the back 09/25/2016 None mole check Color brown 09/25/2016 None hypertension Quality chronic 01/03/2016 None hypertension Onset and Resolution ongoing 01/03/2016 None hypertension Blood Pressure Values patient checking blood pressure at home - did not bring in readings 01/03/2016 None hypertension Alleviating Factors medication 01/03/2016 None hypertension Onset of Symptom during adulthood 01/03/2016 None hypertension Exacerbating Factors stress 01/03/2016 None hypertension Quality chronic 07/30/2015 None hypertension Onset and Resolution ongoing 07/30/2015 None hypertension Blood Pressure Values patient checking blood pressure at home - did not bring in readings 07/30/2015 None hypertension Alleviating Factors medication 07/30/2015 None hypertension Pertinent Findings Denies anxiety 07/30/2015 None hypertension Pertinent Findings Denies confusion 07/30/2015 None hypertension Pertinent Findings Denies decreased energy 07/30/2015 None hypertension Pertinent Findings Denies dizziness 07/30/2015 None hypertension Pertinent Findings Denies dyspnea 07/30/2015 None hypertension Pertinent Findings Denies edema 07/30/2015 None urinary incontinence Onset of Symptom 6-7 years ago 07/30/2015 None urinary incontinence Triggers no known associated factors 07/30/2015 None urinary incontinence Pertinent Findings Denies back pain 07/30/2015 None urinary incontinence Pertinent Findings Denies bladder pain 07/30/2015 None urinary incontinence Pertinent Findings urinary urgency 07/30/2015 Still some urgency hypertension Quality stable 07/30/2015 None urinary incontinence Quality improving 07/30/[address] Graham and had stimulation treatments done which has greatly improved the incontinence hypertension Quality chronic 05/11/2014 None hypertension Onset and Resolution ongoing 05/11/2014 None hypertension Blood Pressure Values patient checking blood pressure at home - did not bring in readings 05/11/2014 None hypertension Severity mild 05/11/2014 None hypertension Alleviating Factors medication 05/11/2014 None hypertension Pertinent Findings Denies anxiety 05/11/2014 None hypertension Pertinent Findings Denies confusion 05/11/2014 None hypertension Pertinent Findings Denies decreased energy 05/11/2014 None hypertension Pertinent Findings Denies dizziness 05/11/2014 None hypertension Pertinent Findings Denies dyspnea 05/11/2014 None hypertension Pertinent Findings Denies edema 05/11/2014 None urinary incontinence Onset of Symptom 6-7 years ago 05/11/2014 None urinary incontinence Quality worsening 05/11/2014 in the last 2 years. urinary incontinence Pertinent Findings Denies back pain 05/11/2014 None urinary incontinence Pertinent Findings Denies bladder pain 05/11/2014 None urinary incontinence Pertinent Findings urinary urgency 05/11/2014 None urinary incontinence Triggers no known associated factors 05/11/2014 None hypertension Quality chronic 02/07/2013 None hypertension Onset and Resolution ongoing 02/07/2013 None hypertension Severity mild 02/07/2013 None hypertension Blood Pressure Values patient checking blood pressure at home - did not bring in readings 02/07/2013 None hypertension Pertinent Findings Denies anxiety 02/07/2013 None hypertension Pertinent Findings Denies confusion 02/07/2013 None hypertension Pertinent Findings Denies decreased energy 02/07/2013 None hypertension Pertinent Findings Denies dizziness 02/07/2013 None hypertension Pertinent Findings Denies dyspnea 02/07/2013 None hypertension Pertinent Findings Denies edema 02/07/2013 None hypertension Alleviating Factors medication 02/07/2013 None hypertension Quality chronic 07/28/2012 None hypertension Onset and Resolution ongoing 07/28/2012 None hypertension Blood Pressure Values Stage 0:SBP 130-139 mmHg / DBP 85-89 mmHg 07/28/2012 None hypertension Severity mild 07/28/2012 None hypertension Triggers no known associated factors 07/28/2012 None hypertension Alleviating Factors exercise 07/28/2012 None hypertension Alleviating Factors medication 07/28/2012 None hypertension Pertinent Findings Denies dizziness 07/28/2012 None hypertension Pertinent Findings Denies irritability 07/28/2012 None hypertension Pertinent Findings Denies lethargy 07/28/2012 None hyperlipidemia Onset and Resolution ongoing 07/28/2012 None hyperlipidemia Onset of Symptom during adulthood 07/28/2012 None hyperlipidemia Severity mild 07/28/2012 None hyperlipidemia Triggers no known associated factors 07/28/2012 None hyperlipidemia Alleviating Factors medication 07/28/2012 None hyperlipidemia Quality chronic 07/28/2012 None hypertension Quality chronic 04/13/2012 None hypertension Onset and Resolution ongoing 04/13/2012 None hypertension Blood Pressure Values Stage 0:SBP 130-139 mmHg / DBP 85-89 mmHg 04/13/2012 None hypertension Severity mild 04/13/2012 None hypertension Triggers no known associated factors 04/13/2012 None hypertension Alleviating Factors exercise 04/13/2012 None hypertension Alleviating Factors medication 04/13/2012 None hypertension Pertinent Findings Denies dizziness 04/13/2012 None hypertension Pertinent Findings Denies irritability 04/13/2012 None hypertension Pertinent Findings Denies lethargy 04/13/2012 None hyperlipidemia Severity mild 04/13/2012 None hyperlipidemia Alleviating Factors medication 04/13/2012 None hyperlipidemia Quality chronic 04/13/2012 None hyperlipidemia Onset and Resolution ongoing 04/13/2012 None hyperlipidemia Onset of Symptom during adulthood 04/13/2012 None hyperlipidemia Triggers no known associated factors 04/13/2012 None hypertension Quality chronic 09/24/2011 None hypertension Onset and Resolution ongoing 09/24/2011 None hypertension Blood Pressure Values Stage 0:SBP 130-139 mmHg / DBP 85-89 mmHg 09/24/2011 None hypertension Severity mild 09/24/2011 None hypertension Triggers no known associated factors 09/24/2011 None hypertension Alleviating Factors exercise 09/24/2011 None hypertension Alleviating Factors medication 09/24/2011 None hyperlipidemia Quality chronic 09/24/2011 None hyperlipidemia Onset and Resolution ongoing 09/24/2011 None hypertension Pertinent Findings Denies dizziness 09/24/2011 None hypertension Pertinent Findings Denies irritability 09/24/2011 None hypertension Pertinent Findings Denies lethargy 09/24/2011 None hyperlipidemia Severity mild 09/24/2011 None hyperlipidemia Alleviating Factors medication 09/24/2011 None hypertension Quality chronic 06/25/2011 None hypertension Onset and Resolution ongoing 06/25/2011 None hyperlipidemia Quality chronic 06/25/2011 None hyperlipidemia Onset and Resolution ongoing 06/25/2011 None hypertension Onset of Symptom during adulthood 06/25/2011 None hypertension Blood Pressure Values Stage 0:SBP 130-139 mmHg / DBP 85-89 mmHg 06/25/2011 None hypertension Severity mild 06/25/2011 None hypertension Triggers no known associated factors 06/25/2011 None hypertension Alleviating Factors medication 06/25/2011 None hypertension Alleviating Factors exercise 06/25/2011 None Advance Directives No Advance Directive data Encounters Encounter Performer Location Codes Date ([id number]) [id number] EST. PATIENT, LEVEL IV Diagnosis: Essential (primary) hypertension[ICD10: I10] Diagnosis: Mixed hyperlipidemia[ICD10: E78.2] Diagnosis: Low back pain[ICD10: M54.5] April Ugalde MD, [facility] CPT-4: 62949 02/03/2019 ([id number]) 28583 EST. PATIENT, LEVEL IV Diagnosis: Essential (primary) hypertension[ICD10: I10] Diagnosis: Mixed hyperlipidemia[ICD10: E78.2] Diagnosis: Major depressive disorder, recurrent, moderate[ICD10: F33.1] April Ugalde MD, [facility] CPT-4: 26908 07/12/2018 ([id number]) 29222 EST. PATIENT, LEVEL III Diagnosis: Essential (primary) hypertension[ICD10: I10] April Ugalde MD, [facility] CPT-4: 48753 03/08/2018 ([id number]) 62100 EST. PATIENT, LEVEL III Diagnosis: Essential (primary) hypertension[ICD10: I10] April Ugalde MD, [facility] CPT-4: 62353 10/28/2017 ([id number]) 66757 EST. PATIENT, LEVEL IV Diagnosis: Essential (primary) hypertension[ICD10: I10] Diagnosis: Mixed hyperlipidemia[ICD10: E78.2] Diagnosis: Atherosclerosis of renal artery[ICD10: I70.1] April Ugalde MD, [facility] CPT-4: 67278 10/07/2017 ([id number]) 76894 EST. PATIENT, LEVEL IV Diagnosis: Essential (primary) hypertension[ICD10: I10] Diagnosis: Mixed hyperlipidemia[ICD10: E78.2] April Ugalde MD, [facility] CPT- 4: 98075 03/26/2017 ([id number]) PER PM REEVAL EST PAT 65+ YR Diagnosis: Encounter for general adult medical examination without abnormal findings[ICD10: Z00.00] April Ugalde MD, [facility] CPT-4: 50224 09/25/2016 ([id number]) 52911 EST. PATIENT, LEVEL IV Diagnosis: Essential (primary) hypertension[ICD10: I10] Diagnosis: Mixed hyperlipidemia[ICD10: E78.2] April Ugalde MD, [facility] CPT- 4: 07908 01/03/2016 ([id number]) PER PM REEVAL EST PAT 65+ YR Diagnosis: Encounter for general adult medical examination without abnormal findings[ICD10: Z00.00] [facility] CPT-[facility]: 61900 07/30/2015 ([id number]) 12325 EST. PATIENT, LEVEL IV Diagnosis: VACCIN FOR INFLUENZA[ICD10: Z23] Diagnosis: ESSENTIAL HYPERTENSION[ICD9: 401.9] Diagnosis: Urinary incontinence[ICD9: 788.30] Diagnosis: HYPERLIPIDEMIA[ICD9: 272.4] [facility] CPT-4: 37452 05/11/2014 ([id number]) 64045 EST. PATIENT, LEVEL III Diagnosis: ESSENTIAL HYPERTENSION[SNOMED: 51074192] [facility] CPT-4: 43624 02/07/2013 ([id number] 65735 EST. PATIENT, LEVEL IV Diagnosis: ESSENTIAL HYPERTENSION[SNOMED: 76593602] Diagnosis: HYPERLIPIDEMIA[ICD9: 272.4] Diagnosis: GENERAL OSTEOARTHROSIS[ICD9: 715.00] Diagnosis: Toe pain[ICD9: 729.5] April Ugalde MD, [facility] CPT-4: 83962 07/28/2012 ([id number] EST. PATIENT, LEVEL IV Diagnosis: ESSENTIAL HYPERTENSION[SNOMED: 63437321] Diagnosis: HYPERLIPIDEMIA[ICD9: 272.4] April Ugalde MD, [facility] CPT-4: 30557 04/13/2012 ([id number] EST. PATIENT, LEVEL IV Diagnosis: ESSENTIAL HYPERTENSION[SNOMED: 41985376] Diagnosis: HYPERLIPIDEMIA[ICD9: 272.4] April Ugalde MD, [facility] CPT-4: 21598 09/24/2011 OFFICE VISIT, NEW - LEVEL 4 Diagnosis: ESSENTIAL HYPERTENSION[SNOMED: 58913742] Diagnosis: HYPERLIPIDEMIA[ICD9: 272.4] Diagnosis: VACCIN STREP PNEUMONIAE[ICD9: V03.82] Diagnosis: Insomnia[ICD9: 780.52] April Ugalde MD, [facility] CPT-4: 82368 06/25/2011 Plan of Care Planned Activity Notes Codes Status Date Visit Plan: Hypertension - well controlled - continue with current medications, continue with no added salt diet. Pt has been encouraged to exercise daily. The pt has been advised to call the office if there are any acute concerns about change in blood pressure readings at home. Hyperlipidemia - pt has been counseled about appropriate diet, exercise, and need for low fat food choices. I have discussed the need for the patient to take medications as prescribed. If the patient has negative side effects from the medication, they are to CALL the office and not abruptly discontinue the medication without discussion with a practitioner in the office. We will check labs in 3-6 months for follow up on the patient's chronic medical problem and to assure normal liver response to medications. Low back pain - referral to augustina carrillo for dry needling - back pain. Pt in need of routine colonoscopy - I have recommended a referral to Dr. Dash for colonoscopy 02/03/2019 Appointment: April Ugalde WPtel: [facility] [place] (15 min) Moderate 02/03/2019 Patient Education: Patient Medication Summary Completed 02/03/2019 Patient Education: Cholesterol Management Completed 02/03/2019 Patient Education: Back Pain Completed 02/03/2019 Appointment: April Ugalde WPtel: [facility] [place] (15 min) Moderate 01/10/2019 Patient Education: Patient Medication Summary Completed 07/26/2018 Visit Plan: Hypertension - well controlled - continue with current medications, continue with no added salt diet. Pt has been encouraged to exercise daily. The pt has been advised to call the office if there are any acute concerns about change in blood pressure readings at home. Hyperlipidemia - pt has been counseled about appropriate diet, exercise, and need for low fat food choices. I have discussed the need for the patient to take medications as prescribed. If the patient has negative side effects from the medication, they are to CALL the office and not abruptly discontinue the medication without discussion with a practitioner in the office. We will check labs in 3-6 months for follow up on the patient's chronic medical problem and to assure normal liver response to medications. Chronic Depression and anxiety - the pt has symptoms of chronic anxiety and depression that have been fairly well controlled since the last office visit. The pt has expected periods of exacerbation with abatement of the symptoms with change in situational exposure. No change in current medications. 07/12/2018 Appointment: April Ugalde WPtel: [facility] [place] (15 min) Moderate 07/12/2018 Patient Education: Patient Medication Summary Completed 07/12/2018 Patient Education: Cholesterol Management Completed 07/12/2018 Patient Education: Depression Completed 07/12/2018 Visit Plan: Hypertension - well controlled - continue with current medications, continue with no added salt diet. Pt has been encouraged to exercise daily. The pt has been advised to call the office if there are any acute concerns about change in blood pressure readings at home. 03/08/2018 Appointment: [phone] [place] (15 min) Moderate 03/08/2018 Appointment: [phone] [place] (15 min) Moderate 03/08/2018 Patient Education: Patient Medication Summary Completed 03/08/2018 Visit Plan: Hypertension - well controlled - continue with current medications, continue with no added salt diet. Pt has been encouraged to exercise daily. The pt has been advised to call the office if there are any acute concerns about change in blood pressure readings at home. 10/28/2017 Appointment: April Ugalde WPtel: [phone] [facility] (15 min) Moderate 10/28/2017 Patient Education: Patient Medication Summary Completed 10/28/2017 Visit Plan: Hypertension - uncontrolled - the patient's medications have been modified as documented in the visit note. The patient has been counseled to cut back on salt in diet for a no added salt diet, low fat diet, start an exercise program with low weight bearing exercises and higher aerobic activity for heart health. The patient is to check blood pressure readings as an outpatient and either fax, call, or email the readings to the office next week for practitioner to review. The pt is to call for acute concerns. Increase losartan to 100mg daily. Renal artery stenosis - recommended pt to have CT angio of the abdomen and pelvis. - We will get this set up for the patient. Hyperlipidemia - pt has been counseled about appropriate diet, exercise, and need for low fat food choices. I have discussed the need for the patient to take medications as prescribed. If the patient has negative side effects from the medication, they are to CALL the office and not abruptly discontinue the medication without discussion with a practitioner in the office. We will check labs in 3-6 months for follow up on the patient's chronic medical problem and to assure normal liver response to medications. 10/07/2017 Appointment: April [facility]galde [facility] [place] (15 min) Moderate 10/07/2017 Patient Education: Patient Medication Summary Completed 10/07/2017 Appointment: April Ugalde WPtel: [phone] [facility] (15 min) Moderate 09/28/2017 Visit Plan: Hypertension - well controlled - continue with current medications, continue with no added salt diet. Pt has been encouraged to exercise daily. The pt has been advised to call the office if there are any acute concerns about change in blood pressure readings at home. Hyperlipidemia - pt has been counseled about appropriate diet, exercise, and need for low fat food choices. I have discussed the need for the patient to take medications as prescribed. If the patient has negative side effects from the medication, they are to CALL the office and not abruptly discontinue the medication without discussion with a practitioner in the office. We will check labs in 3-6 months for follow up on the patient's chronic medical problem and to assure normal liver response to medications. 03/26/2017 Appointment: April Ugalde WPtel: [phone] [facility] (15 min) Moderate 03/26/2017 Patient Education: Patient Medication Summary Completed 03/26/2017 Visit Plan: Well Adult - pt was counseled about diet, exercise, and encouraged to follow a heart healthy diet and increase activity level. The patient was instructed to RTC yearly for well adult exams and PRN for acute illnesses. The pt was also instructed to have yearly labs for check of cholesterol, thyroid, chem panel, CBC, and renal functioning. 09/25/2016 Appointment: April Ugalde WPtel: [phone] [facility] (15 min) Moderate 09/25/2016 Patient Education: Patient Medication Summary Completed 09/25/2016 Appointment: [facility] (15 min) Moderate 07/29/2016 Visit Plan: Hypertension - well controlled - continue with current medications, continue with no added salt diet. Pt has been encouraged to exercise daily. The pt has been advised to call the office if there are any acute concerns about change in blood pressure readings at home. Hyperlipidemia - pt has been counseled about appropriate diet, exercise, and need for low fat food choices. I have discussed the need for the patient to take medications as prescribed. If the patient has negative side effects from the medication, they are to CALL the office and not abruptly discontinue the medication without discussion with a practitioner in the office. We will check labs in 3-6 months for follow up on the patient's chronic medical problem and to assure normal liver response to medications. 01/03/2016 Patient Education: Patient Medication Summary Completed 01/03/2016 Visit Plan: Well Adult - pt was counseled about diet, exercise, and encouraged to follow a heart healthy diet and increase activity level. The patient was instructed to RTC yearly for well adult exams and PRN for acute illnesses. The pt was also instructed to have yearly labs for check of cholesterol, thyroid, chem panel, CBC, and renal functioning. Hypertension - controlled - no change in blood pressure mediation at this time. Continue with low sodium diet and continue with lower fat diet. 07/30/2015 Patient Education: Patient Medication Summary Completed 07/30/2015 Patient Education: Hypertension Completed 07/30/2015 Appointment: Injection 07/04/2015 Patient Education: Patient Medication Summary Completed 07/04/2015 Visit Plan: Hypertension - well controlled - continue with current medications, continue with no added salt diet. Pt has been encouraged to exercise daily. The pt has been advised to call the office if there are any acute concerns about change in blood pressure readings at home. Referral to Dr. Graham for evaluation - due to worsening symptoms of urinary incontinence - stress and urge symptoms. Pt to avoid caffeine after 5PM, and continue with pads for protection. Hyperlipidemia - pt has been counseled about appropriate diet, exercise, and need for low fat food choices. I have discussed the need for the patient to take medications as prescribed. If the patient has negative side effects from the medication, they are to CALL the office and not abruptly discontinue the medication without discussion with a practitioner in the office. We will check labs in 3-6 months for follow up on the patient's chronic medical problem and to assure normal liver response to medications. flu shot today 05/11/2014 Appointment: [phone] [facility] Follow up 05/11/2014 Patient Education: Patient Medication Summary Completed 05/11/2014 Patient Education: Hypertension Completed 05/11/2014 Visit Plan: Hypertension - well controlled - continue with current medications, continue with no added salt diet. Pt has been encouraged to exercise daily. The pt has been advised to call the office if there are any acute concerns about change in blood pressure readings at home. 02/07/2013 Appointment: [phone] Follow up 02/07/2013 Patient Education: Patient Medication Summary Completed 02/07/2013 Patient Education: Hypertension Completed 02/07/2013 Visit Plan: Hypertension - well controlled - continue with current medications, continue with no added salt diet. Pt has been encouraged to exercise daily. The pt has been advised to call the office if there are any acute concerns about change in blood pressure readings at home. Hyperlipidemia - pt has been counseled about appropriate diet, exercise, and need for low fat food choices. I have discussed the need for the patient to take medications as prescribed. If the patient has negative side effects from the medication, they are to CALL the office and not abruptly discontinue the medication without discussion with a practicioner in the office. We will check labs in 3-6 months for follow up on the patient's chronic medical problem and to assure normal liver response to medications. Toe pain and OA - pt to have surgical procedure for treatment of severe arthritis and spurring of the great toe, pt to use PRN ibuprofen and topical arthritis cream PRN. Plan for surgery on 08/02/12. - Pt is cleared medically for surgery by Dr. Almazan. 07/28/2012 Appointment: [facility]galde [phone] Other 07/28/2012 Patient Education: Hypertension Completed 07/28/2012 Patient Education: Patient Medication Summary Completed 07/28/2012 Visit Plan: Hypertension - well controlled - continue with current medications, continue with no added salt diet. Pt has been encouraged to exercise daily. The pt has been advised to call the office if there are any acute concerns about change in blood pressure readings at home. Hyperlipidemia - pt has been counseled about appropriate diet, exercise, and need for low fat food choices. I have discussed the need for the patient to take medications as prescribed. If the patient has negative side effects from the medication, they are to CALL the office and not abruptly discontinue the medication without discussion with a practicioner in the office. We will check labs in 3-6 months for follow up on the patient's chronic medical problem and to assure normal liver response to medications. 04/13/2012 Appointment: April Ugalde WPtel: [phone] [facility] Other 04/13/2012 Patient Education: Patient Medication Summary Completed 04/13/2012 Patient Education: High Blood Pressure: Essential Hypertension Completed 04/13/2012 Visit Plan: Hypertension - well controlled - continue with current medications, continue with no added salt diet. Pt has been encouraged to exercise daily. The pt has been advised to call the office if there are any acute concerns about change in blood pressure readings at home. Hyperlipidemia - pt has been counseled about appropriate diet, exercise, and need for low fat food choices. I have discussed the need for the patient to take medications as prescribed. If the patient has negative side effects from the medication, they are to CALL the office and not abruptly discontinue the medication without discussion with a practicioner in the office. We will check labs in 3-6 months for follow up on the patient's chronic medical problem and to assure normal liver response to medications. 09/24/2011 Appointment: April Ugalde WPtel: [phone] [facility] Other 09/24/2011 Patient Education: Patient Medication Summary Completed 09/24/2011 Patient Education: High Blood Pressure: Essential Hypertension Completed 09/24/2011 Visit Plan: Hypertension - well controlled - continue with current medications, continue with no added salt diet. Pt has been encouraged to exercise daily. The pt has been advised to call the office if there are any acute concerns about change in blood pressure readings at home. Hyperlipidemia - pt has been counseled about appropriate diet, exercise, and need for low fat food choices. I have discussed the need for the patient to take medications as prescribed. If the patient has negative side effects from the medication, they are to CALL the office and not abruptly discontinue the medication without discussion with a practicioner in the office. We will check labs in 3-6 months for follow up on the patient's chronic medical problem and to assure normal liver response to medications. Insomnia - pt advised to stop tylenol pm and to start on tylenol pm and to start on melatonin up to 10 mg. 06/25/2011 Appointment: [facility] Ugalde [phone] [place] New Patient 06/25/2011 Patient Education: Patient Medication Summary Completed 06/25/2011 Patient Education: High Blood Pressure: Essential Hypertension Completed 06/25/2011 Patient Education: Insomnia in Older Adults Completed 06/25/2011 Instructions Comment . Well Adult - pt was counseled about diet, exercise, and encouraged to follow a heart healthy diet and increase activity level. The patient was instructed to RTC yearly for well adult exams and PRN for acute illnesses. The pt was also instructed to have yearly labs for check of cholesterol, thyroid, chem panel, CBC, and renal functioning. Hypertension - controlled - no change in blood pressure mediation at this time. Continue with low sodium diet and continue with lower fat diet. . Hypertension - well controlled - continue with current medications, continue with no added salt diet. Pt has been encouraged to exercise daily. The pt has been advised to call the office if there are any acute concerns about change in blood pressure readings at home. . Hypertension - well controlled - continue with current medications, continue with no added salt diet. Pt has been encouraged to exercise daily. The pt has been advised to call the office if there are any acute concerns about change in blood pressure readings at home. Hyperlipidemia - pt has been counseled about appropriate diet, exercise, and need for low fat food choices. I have discussed the need for the patient to take medications as prescribed. If the patient has negative side effects from the medication, they are to CALL the office and not abruptly discontinue the medication without discussion with a practitioner in the office. We will check labs in 3-6 months for follow up on the patient's chronic medical problem and to assure normal liver response to medications. Low back pain - referral to augustina carrillo for dry needling - back pain. Pt in need of routine colonoscopy - I have recommended a referral to Dr. Dash for colonoscopy . Hypertension - well controlled - continue with current medications, continue with no added salt diet. Pt has been encouraged to exercise daily. The pt has been advised to call the office if there are any acute concerns about change in blood pressure readings at home. . Hypertension - well controlled - continue with current medications, continue with no added salt diet. Pt has been encouraged to exercise daily. The pt has been advised to call the office if there are any acute concerns about change in blood pressure readings at home. Hyperlipidemia - pt has been counseled about appropriate diet, exercise, and need for low fat food choices. I have discussed the need for the patient to take medications as prescribed. If the patient has negative side effects from the medication, they are to CALL the office and not abruptly discontinue the medication without discussion with a practicioner in the office. We will check labs in 3-6 months for follow up on the patient's chronic medical problem and to assure normal liver response to medications. Toe pain and OA - pt to have surgical procedure for treatment of severe arthritis and spurring of the great toe, pt to use PRN ibuprofen and topical arthritis cream PRN. Plan for surgery on 08/02/12. - Pt is cleared medically for surgery by Dr. Almazan. pt to decrease maxzide to 1/2 pill daily.. Hypertension - well controlled - continue with current medications, continue with no added salt diet. Pt has been encouraged to exercise daily. The pt has been advised to call the office if there are any acute concerns about change in blood pressure readings at home. . Hypertension - well controlled - continue with current medications, continue with no added salt diet. Pt has been encouraged to exercise daily. The pt has been advised to call the office if there are any acute concerns about change in blood pressure readings at home. Hyperlipidemia - pt has been counseled about appropriate diet, exercise, and need for low fat food choices. I have discussed the need for the patient to take medications as prescribed. If the patient has negative side effects from the medication, they are to CALL the office and not abruptly discontinue the medication without discussion with a practitioner in the office. We will check labs in 3-6 months for follow up on the patient's chronic medical problem and to assure normal liver response to medications. Chronic Depression and anxiety - the pt has symptoms of chronic anxiety and depression that have been fairly well controlled since the last office visit. The pt has expected periods of exacerbation with abatement of the symptoms with change in situational exposure. No change in current medications. . Hypertension - well controlled - continue with current medications, continue with no added salt diet. Pt has been encouraged to exercise daily. The pt has been advised to call the office if there are any acute concerns about change in blood pressure readings at home. Hyperlipidemia - pt has been counseled about appropriate diet, exercise, and need for low fat food choices. I have discussed the need for the patient to take medications as prescribed. If the patient has negative side effects from the medication, they are to CALL the office and not abruptly discontinue the medication without discussion with a practicioner in the office. We will check labs in 3-6 months for follow up on the patient's chronic medical problem and to assure normal liver response to medications. . Hypertension - uncontrolled - the patient's medications have been modified as documented in the visit note. The patient has been counseled to cut back on salt in diet for a no added salt diet, low fat diet, start an exercise program with low weight bearing exercises and higher aerobic activity for heart health. The patient is to check blood pressure readings as an outpatient and either fax, call, or email the readings to the office next week for practitioner to review. The pt is to call for acute concerns. Increase losartan to 100mg daily. Renal artery stenosis - recommended pt to have CT angio of the abdomen and pelvis. - We will get this set up for the patient. Hyperlipidemia - pt has been counseled about appropriate diet, exercise, and need for low fat food choices. I have discussed the need for the patient to take medications as prescribed. If the patient has negative side effects from the medication, they are to CALL the office and not abruptly discontinue the medication without discussion with a practitioner in the office. We will check labs in 3-6 months for follow up on the patient's chronic medical problem and to assure normal liver response to medications. . Hypertension - well controlled - continue with current medications, continue with no added salt diet. Pt has been encouraged to exercise daily. The pt has been advised to call the office if there are any acute concerns about change in blood pressure readings at home. Hyperlipidemia - pt has been counseled about appropriate diet, exercise, and need for low fat food choices. I have discussed the need for the patient to take medications as prescribed. If the patient has negative side effects from the medication, they are to CALL the office and not abruptly discontinue the medication without discussion with a practicioner in the office. We will check labs in 3-6 months for follow up on the patient's chronic medical problem and to assure normal liver response to medications. Insomnia - pt advised to stop tylenol pm and to start on tylenol pm and to start on melatonin up to 10 mg. [employer] [place] [employer]. Well Adult - pt was counseled about diet, exercise, and encouraged to follow a heart healthy diet and increase activity level. The patient was instructed to RTC yearly for well adult exams and PRN for acute illnesses. The pt was also instructed to have yearly labs for check of cholesterol, thyroid, chem panel, CBC, and renal functioning. . Hypertension - well controlled - continue with current medications, continue with no added salt diet. Pt has been encouraged to exercise daily. The pt has been advised to call the office if there are any acute concerns about change in blood pressure readings at home. Hyperlipidemia - pt has been counseled about appropriate diet, exercise, and need for low fat food choices. I have discussed the need for the patient to take medications as prescribed. If the patient has negative side effects from the medication, they are to CALL the office and not abruptly discontinue the medication without discussion with a practitioner in the office. We will check labs in 3-6 months for follow up on the patient's chronic medical problem and to assure normal liver response to medications. . Hypertension - well controlled - continue with current medications, continue with no added salt diet. Pt has been encouraged to exercise daily. The pt has been advised to call the office if there are any acute concerns about change in blood pressure readings at home. Referral to Dr. Graham for evaluation - due to worsening symptoms of urinary incontinence - stress and urge symptoms. Pt to avoid caffeine after 5PM, and continue with pads for protection. Hyperlipidemia - pt has been counseled about appropriate diet, exercise, and need for low fat food choices. I have discussed the need for the patient to take medications as prescribed. If the patient has negative side effects from the medication, they are to CALL the office and not abruptly discontinue the medication without discussion with a practitioner in the office. We will check labs in 3-6 months for follow up on the patient's chronic medical problem and to assure normal liver response to medications. flu shot today . Hypertension - well controlled - continue with current medications, continue with no added salt diet. Pt has been encouraged to exercise daily. The pt has been advised to call the office if there are any acute concerns about change in blood pressure readings at home. Hyperlipidemia - pt has been counseled about appropriate diet, exercise, and need for low fat food choices. I have discussed the need for the patient to take medications as prescribed. If the patient has negative side effects from the medication, they are to CALL the office and not abruptly discontinue the medication without discussion with a practitioner in the office. We will check labs in 3-6 months for follow up on the patient's chronic medical problem and to assure normal liver response to medications. . Hypertension - well controlled - continue with current medications, continue with no added salt diet. Pt has been encouraged to exercise daily. The pt has been advised to call the office if there are any acute concerns about change in blood pressure readings at home. Hyperlipidemia - pt has been counseled about appropriate diet, exercise, and need for low fat food choices. I have discussed the need for the patient to take medications as prescribed. If the patient has negative side effects from the medication, they are to CALL the office and not abruptly discontinue the medication without discussion with a practicioner in the office. We will check labs in 3-6 months for follow up on the patient's chronic medical problem and to assure normal liver response to medications.
--- OUTSIDE RECORDS SUMMARY | 2019-03-11 18:10 | XMS REPORT | CCD ---
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 Marital status Unknown 06/25/[address]: 553259059 Never smoker 06/25/[address]: 805243 Currently drinks alcohol 7 weekly 06/25/2011 Has [...] Codes Condition Status Onset Date Resolved Date Encounter for screening mammogram for malignant neoplasm of breast ICD-9: V76.10 ICD-10: Z12.31 Active 07/26/2018 Unknown Essential (primary) hypertension ICD-9: 401.1 ICD-10: I10 Active 01/02/2016 Unknown Major depressive disorder, recurrent, moderate ICD-9: 296.32 ICD-10: F33.1 Active 07/12/2018 Unknown Mixed hyperlipidemia ICD- 9: 272.2 ICD-10: E78.2 Active 01/02/2016 Unknown Atherosclerosis of renal artery ICD-9: 440.1 [...] Problems Condition Codes Effective Dates Condition Status Encounter for screening mammogram for malignant neoplasm of breast ICD-9: V76.10 ICD-10: Z12.31 07/26/2018 Active Essential (primary) hypertension ICD-9: 401.1 ICD-10: I10 01/02/2016 Active Major depressive disorder, recurrent, moderate ICD-9: 296.32 ICD-10: F33.1 07/12/2018 Active Mixed hyperlipidemia ICD- 9: 272.2 ICD-10: E78.2 01/02/2016 Active Atherosclerosis of renal artery ICD-9: 440.1 [...] Fill Instructions sertraline 50 mg tablet RxNorm: 089803 TAKE 1 TABLET BY MOUTH ONCE DAILY 02/04/2019 No Stop Date Active Lipitor 40 mg tablet RxNorm: 704217 1 Tablet(s) PO daily 01/05/2019 08/02/2019 Active Toprol XL 25 mg tablet,extended release RxNorm: 262602 TAKE 1 TABLET BY MOUTH ONCE DAILY 01/03/2019 No Stop Date Active Lipitor 40 mg tablet RxNorm: 584176 1 Tablet(s) PO daily 06/18/2018 10/15/2018 Inactive Trilipix 135 mg capsule,delayed release RxNorm: 052970 Capsule(s) TAKE ONE CAPSULE BY MOUTH AT BEDTIME 05/06/2018 No Stop Date Active sertraline 50 mg tablet RxNorm: 459305 Tablet(s) TAKE ONE TABLET BY MOUTH ONCE DAILY 11/12/2017 11/06/2018 Inactive Toprol XL 25 mg tablet,extended release RxNorm: 424876 1 Tablet(s) PO daily 11/12/2017 11/06/2018 Inactive losartan 100 mg tablet RxNorm: 873873 1 Tablet(s) PO daily 10/07/2017 05/04/2018 Inactive Trilipix 135 mg capsule,delayed release RxNorm: 420402 TAKE ONE CAPSULE BY MOUTH AT BEDTIME 09/14/2017 05/05/2018 Inactive sertraline 50 mg tablet RxNorm: 530729 TAKE ONE TABLET BY MOUTH ONCE DAILY 05/12/2017 11/11/2017 Inactive Trilipix 135 mg capsule,delayed release RxNorm: 845154 1 Capsule(s) PO QHS 04/17/2017 07/15/2017 Inactive Trilipix 135 mg capsule,delayed release RxNorm: 971353 1 Capsule(s) PO QHS 04/17/2017 04/16/2017 Inactive Toprol XL 25 mg tablet,extended release RxNorm: 804003 1 Tablet(s) PO daily 04/17/2017 10/13/2017 Inactive Toprol XL 25 mg tablet,extended release RxNorm: 038919 1 Tablet(s) PO daily 04/17/2017 04/16/2017 Inactive enalapril maleate 20 mg tablet RxNorm: 848820 1 Tablet(s) PO QHS 05/13/2016 10/06/2017 Inactive sertraline 50 mg tablet RxNorm: 361282 1 Tablet(s) PO daily 01/24/2016 05/22/2016 Inactive Fosamax 70 mg tablet RxNorm: 104922 1 Tablet(s) PO QW 06/30/2014 06/24/2015 Inactive Fosamax 70 mg tablet RxNorm: 536375 1 Tablet(s) PO QW 06/30/2014 06/29/2014 Inactive ivermectin 3 mg tablet RxNorm: 688784 5 Tablet(s) PO daily may repeat on day 8 if needed 04/02/2012 04/01/2012 Inactive ivermectin 3 mg tablet RxNorm: 604413 5 Tablet(s) PO daily may repeat on day 8 if needed 04/02/2012 04/02/2012 Inactive Pneumovax 23 25 mcg/0.5 mL Injection RxNorm: 388743 Milliliter(s) Inj 06/25/2011 06/25/2011 Inactive hydrochlorothiazide 25 mg tablet RxNorm: 654920 1 Tablet(s) PO daily No Start Date Active folic acid 800 mcg tablet RxNorm: 974791 1 Tablet(s) PO daily No Start Date Active Fosamax 70 mg Tab RxNorm: 592303 1 Tablet(s) PO weekly No Start Date 10/06/2017 Inactive melatonin 10 mg tablet RxNorm: 9450852 1 Tablet(s) PO daily No Start Date 10/06/2017 Inactive enalapril maleate 20 mg Tab RxNorm: 148063 1 Tablet(s) PO QHS No Start Date 05/12/2016 Inactive Vitamin D 1,000 unit Cap RxNorm: 430816 1 Capsule(s) PO daily No Start Date 10/06/2017 Inactive triamterine HCTZ 25/37.5 mg RxNorm: 1 PO daily No Start Date 04/12/2012 Inactive sertraline 50 mg Tab RxNorm: 459873 1 Tablet(s) PO daily No Start Date 01/23/2016 Inactive multivitamin Cap RxNorm: 1 Capsule(s) PO daily No Start Date 10/06/2017 Inactive calcium 500 mg Tab RxNorm: 1 Tablet(s) PO daily No Start Date 10/06/2017 Inactive triamterene-hydrochlorothiazide 37.5 mg-25 mg Tab RxNorm: 198761 1 Tablet(s) PO daily No Start Date 04/19/2017 Inactive Lipitor 40 mg Tab RxNorm: 340422 1 Tablet(s) PO daily No Start Date 06/17/2018 Inactive losartan 25 mg tablet RxNorm: 149930 1 Tablet(s) PO daily No Start Date 10/06/2017 Inactive Tylenol PM Extra Strength 25 mg-500 mg Tab RxNorm: 1235626 1 Tablet(s) PO QHS No Start Date 02/06/2013 Inactive Restasis 0.05 % eye drops in a dropperette RxNorm: 524348 ophthalmic No Start Date 07/11/2018 Inactive Estring 2 mg Vaginal RxNorm: 661285 1 VAG q 3 month No Start Date 09/24/2016 Inactive Medication Administered Medication Codes Instructions Start Date Status Pneumovax 23 25 mcg/0.5 mL Injection RxNorm: 762574 Milliliter 06/25/2011 No longer Active Immunizations Vaccine [...] 06/25/2011 completed Assessments Condition Codes Effective Dates Encounter for screening mammogram for malignant neoplasm of breast ICD-10: Z12.31 ICD-9: V76.10 07/26/2018 Mixed hyperlipidemia ICD-10: E78.2 ICD-9: 272.2 07/12/2018 Essential (primary) hypertension ICD-10: I10 ICD-9: 401.1 07/12/2018 Major depressive disorder, recurrent, moderate ICD-10: F33.1 [...] Visit Reason For Visit Effective Dates Notes hypertension 07/12/2018 hypertension 03/08/2018 hypertension 10/28/2017 hypertension [...] 53.9 % 07/12/2018 Cbc With Differential Ord2 Lymph% 29.2 % 07/12/2018 Cbc With Differential Ord2 MCV 101.8 fl 07/12/2018 Cbc With Differential Ord2 [place]% 11.2 % 07/12/2018 Cbc With Differential Ord2 MCH 33.5 pg 07/12/2018 Cbc With Differential Ord2 Eos% 4.8 % 07/12/2018 Cbc With Differential Ord2 MCHC 32.9 pg 07/12/2018 Cbc With Differential Ord2 PLT 283 K/ul 07/12/2018 Cbc With Differential Ord2 Baso% 0.9 % 07/12/2018 Cbc With Differential Ord2 Neut ABS# 2.94 K/ul 07/12/2018 Cbc With Differential Ord2 RDW 13.0 % 07/12/2018 Cbc With Differential Ord2 Lymph ABS# 1.59 K/ul 07/12/2018 Cbc With Differential Ord2 [place] ABS# 0.6 K/ul 07/12/2018 Cbc With Differential Ord2 Eos ABS# 0.3 K/ul 07/12/2018 Cbc With Differential Ord2 Baso ABS# 0.1 K/ul 07/12/2018 Lipid Ord30 CHOL 189 mg/dL 07/12/2018 Lipid Ord30 HDL 86.0 mg/dl 07/12/2018 Lipid Ord30 TRIG 47 mg/dL 07/12/2018 Lipid Ord30 LDL 94 mg/dL 07/12/2018 Lipid Ord30 C/HDL 2.2 Ratio 07/12/2018 Comp Metabolic Nxd353 NA 138 mEq/L 07/12/2018 Comp Metabolic Cxt222 K 4.0 mEq/L 07/12/2018 Comp Metabolic Gwf508 CL 103 mEq/L 07/12/2018 Comp Metabolic Vhx983 CO2 25.0 mEq/L 07/12/2018 Comp Metabolic Cgb435 ANION GAP 14 07/12/2018 Comp Metabolic Smo349 GLUCOSE 94 mg/dL 07/12/2018 Comp Metabolic Lqr924 Creat 1.0 mg/dL 07/12/2018 Comp Metabolic Ink842 eGFR 57 ml/min/1.73m2 07/12/2018 Comp Metabolic Qol467 BUN 24 mg/dL 07/12/2018 Comp Metabolic Jet001 B/C Ratio 23.8 Ratio 07/12/2018 Comp Metabolic Tjq878 CALCIUM 9.2 mg/dL 07/12/2018 Comp Metabolic Mrh718 ALK PHOS 32 U/L 07/12/2018 Comp Metabolic Dby388 AST(SGOT) 21 U/L 07/12/2018 Comp Metabolic Ygu470 ALT(SGPT) 12 U/L 07/12/2018 Comp Metabolic Hnb203 BILI T 0.7 mg/dL 07/12/2018 Comp Metabolic Spt159 ALBUMIN 4.1 g/dL 07/12/2018 Comp Metabolic Jab159 TPRO 6.4 g/dL 07/12/2018 Comp Metabolic Hmh632 GLOB 2.3 g/dL 07/12/2018 Comp Metabolic Hhl273 A/G Ratio 1.8 Ratio 07/12/2018 Comp Metabolic Wni630 Osmo 279 mOsmo 07/12/2018 Tsh Ord6 TSH (3rd IS) 3.80 uIU/mL 07/12/2018 Comp Metabolic Qiw595 NA 142 mEq/L 10/26/2017 Comp Metabolic Vun109 K 3.7 mEq/L 10/26/2017 Comp Metabolic Tlf385 CL 103 mEq/L 10/26/2017 Comp Metabolic Cus085 CO2 31.0 mEq/L 10/26/2017 Comp Metabolic Vtu377 ANION GAP 12 10/26/2017 Comp Metabolic Oxe690 GLUCOSE 91 mg/dL 10/26/2017 Comp Metabolic Xak620 Creat 0.9 mg/dL 10/26/2017 Comp Metabolic Szj654 eGFR 63 ml/min/1.73m2 10/26/2017 Comp Metabolic Cez285 BUN 22 mg/dL 10/26/2017 Comp Metabolic Gzp858 B/C Ratio 23.7 Ratio 10/26/2017 Comp Metabolic Klu081 CALCIUM 9.3 mg/dL 10/26/2017 Comp Metabolic Muh639 ALK PHOS 44 U/L 10/26/2017 Comp Metabolic Sjr430 AST(SGOT) 22 U/L 10/26/2017 Comp Metabolic Kin977 ALT(SGPT) 14 U/L 10/26/2017 Comp Metabolic Wmg950 BILI T 0.6 mg/dL 10/26/2017 Comp Metabolic Ths262 ALBUMIN 4.4 g/dL 10/26/2017 Comp Metabolic Cfx727 TPRO 6.5 g/dL 10/26/2017 Comp Metabolic Vvu954 GLOB 2.1 g/dL 10/26/2017 Comp Metabolic Pfz907 A/G Ratio 2.1 Ratio 10/26/2017 Comp Metabolic Mlm774 Osmo 286 mOsmo 10/26/2017 Lipid Ord30 CHOL 182 mg/dL 10/26/2017 Lipid Ord30 HDL 65.0 mg/dl 10/26/2017 Lipid Ord30 TRIG 88 mg/dL 10/26/2017 Lipid Ord30 LDL 99 mg/dL 10/26/2017 Lipid Ord30 C/HDL 2.8 Ratio 10/26/2017 Review of Systems System Result Effective Dates Constitutional No recent illness 07/12/2018 Constitutional No [...] accomodation 10/28/2017 None Full Exam - General 1995 [...] tenderness 02/07/2013 None Full Exam - General 1995 Abdomen abdominal exam Overall: normal bowel sounds [...] clear 07/28/2012 None Full Exam - General 1995 Ears/Nose/Throat [...] affect 04/13/2012 None Full Exam - General 1995 Abdomen abdominal exam Overall: normal bowel sounds 09/24/2011 None Full Exam - General 1995 Abdomen liver and spleen exam Overall: no hepatosplenomegaly 09/24/2011 None Full Exam - General 1995 Abdomen liver and spleen exam Overall: no stigmata of chronic liver disease 09/24/2011 None Full Exam - General 1995 Musculoskeletal head and neck Overall: head atraumatic [...] affect 09/24/2011 None Full Exam - General 1994 Eyes [...] Procedure Codes Date IMMUNIZATION ADMIN CPT- 4: 97425 07/04/2015 FLU VACC PRSV FREE INC ANTIG Formatting Model/CDA Sections, Assigned to/Carol Leon CPT-4: 14868Uhgyuii 07/04/2015 IMMUNIZATION ADMIN CPT- 4: 93541 05/11/2014 FLU VAC NO PRSV 4 GABRIEL 3 YRS+ CPT-4: 59679 05/11/2014 ZOSTER VACC SC (No charge, patient supplied vaccine) CPT-4: 10919PU 09/24/2011 Pneumococcal Polysaccharide Vaccine, 23-Valent, Ad CPT-4: 54752 06/25/2011 ADMIN PNEUMOCOCCAL VACCINE SNOMED CT: 53264309 CPT-4: G0009 06/25/2011 Vital Signs Date Vital 07/12/2018 Blood Pressure 1: 140/86 Code: 8480-6 BMI: 25.6 Code: 47623-8 Heart Rate 1: 69 bpm Height: 5'2" SpO2: 99% Weight: 140 lbs 03/08/2018 Blood Pressure 1: 140/74 Code: 8480-6 BMI: 24.5 Code: 24008-0 Heart Rate 1: 70 bpm Height: 5'2" SpO2: 98% Weight: 134 lbs 10/28/2017 Blood Pressure 1: 132/74 Code: 8480-6 BMI: 24.1 Code: 00813-2 Heart Rate 1: 66 bpm Height: 5'2" SpO2: 99% Weight: 132 lbs 10/07/2017 Blood Pressure 1: 184/70 Code: 8480-6 BMI: 24.5 Code: 67034-5 Heart Rate 1: 64 bpm Height: 5'2" SpO2: 99% Weight: 134 lbs 03/26/2017 Blood Pressure 1: 144/84 Code: 8480-6 BMI: 23.0 Code: 57590-4 Heart Rate 1: 72 bpm Height: 5'2" SpO2: 98% Weight: 126 lbs 09/25/2016 Blood Pressure 1: 146/78 Code: 8480-6 BMI: 22.7 Code: 56620-6 Heart Rate 1: 71 bpm Height: 5'2" SpO2: 97% Weight: 124 lbs 01/03/2016 Blood Pressure 1: 160/90 Code: 8480-6 BMI: 24.1 Code: 12329-9 Heart Rate 1: 83 bpm Height: 5'2" SpO2: 97% Weight: 131 lbs 8 oz 07/30/2015 Blood Pressure 1: 145/82 Code: 8480-6 BMI: 25.1 Code: 27793-8 Heart Rate 1: 72 bpm Height: 5'2" SpO2: 98% Weight: 137 lbs 05/11/2014 Blood Pressure 1: 138/88 Code: 8480-6 BMI: 24.9 Code: 23070-6 Heart Rate 1: 84 bpm Height: 5'2" Weight: 136 lbs 02/07/2013 Blood Pressure 1: 102/70 Code: 8480-6 BMI: 25.8 Code: 72956-3 Heart Rate 1: 76 bpm Height: 5'2" [...] 1: 134/76 Code: 8480-6 BMI: 25.2 Code: 23293-4 Heart Rate 1: 72 bpm Height: 5'2" Respiratory Rate: 16 bpm Weight: 138 lbs Functional Status No Functional Status data History of Present Illness Symptom Name Status Result Effective Date Notes hypertension Quality chronic 07/12/2018 None hypertension Quality [...] data Encounters Encounter Performer Location Codes Date [id number]) 55112 EST. PATIENT, LEVEL IV Diagnosis: Essential (primary) hypertension[ICD10: I10] Diagnosis: Mixed hyperlipidemia[ICD10: E78.2] Diagnosis: Major depressive disorder, recurrent, moderate[ICD10: F33.1] April Ugalde MD, [facility] CPT-4: 25869 07/12/2018 ([id number]) 69631 EST. PATIENT, LEVEL III Diagnosis: Essential (primary) hypertension[ICD10: I10] April Ugalde MD, [facility] CPT-4: 99161 03/08/2018 ([id number]) 48473 EST. PATIENT, LEVEL III Diagnosis: Essential (primary) hypertension[ICD10: I10] April Ugalde MD, [facility] CPT-4: 12914 10/28/2017 ([id number]) 17970 EST. PATIENT, LEVEL IV Diagnosis: Essential (primary) hypertension[ICD10: I10] Diagnosis: Mixed hyperlipidemia[ICD10: E78.2] Diagnosis: Atherosclerosis of renal artery[ICD10: I70.1] April Ugalde MD, [facility] CPT-4: 67421 10/07/2017 ([id number]) 42142 EST. PATIENT, LEVEL IV Diagnosis: Essential (primary) hypertension[ICD10: I10] Diagnosis: Mixed hyperlipidemia[ICD10: E78.2] April Ugalde MD, [facility] CPT- 4: 51258 03/26/2017 ([id number]) PER PM REEVAL EST PAT 65+ YR Diagnosis: Encounter for general adult medical examination without abnormal findings[ICD10: Z00.00] KARSTEN Taylor MD CPT-4: 95599 09/25/2016 ([id number]) 18093 EST. PATIENT, LEVEL IV Diagnosis: Essential (primary) hypertension[ICD10: I10] Diagnosis: Mixed hyperlipidemia[ICD10: E78.2] KARSTEN Taylor MD CPT- 4: 17786 01/03/2016 ([id number]) PER PM REEVAL EST PAT 65+ YR Diagnosis: Encounter for general adult medical examination without abnormal findings[ICD10: Z00.00] KARSTEN Taylor MD CPT-4: 30956 07/30/2015 ([id number]) 29375 EST. PATIENT, LEVEL IV Diagnosis: VACCIN FOR INFLUENZA[ICD10: Z23] Diagnosis: ESSENTIAL HYPERTENSION[ICD9: 401.9] Diagnosis: Urinary incontinence[ICD9: 788.30] Diagnosis: HYPERLIPIDEMIA[ICD9: 272.4] April Ugalde MD [facility] CPT-4: 88391 05/11/2014 ([id number]) 40427 EST. PATIENT, LEVEL III Diagnosis: ESSENTIAL HYPERTENSION[SNOMED: 84032822] KARSTEN Taylor MD CPT-4: 09907 02/07/2013 ([id number]) 28614 EST. PATIENT, LEVEL IV Diagnosis: ESSENTIAL HYPERTENSION[SNOMED: 92277893] Diagnosis: HYPERLIPIDEMIA[ICD9: 272.4] Diagnosis: GENERAL OSTEOARTHROSIS[ICD9: 715.00] Diagnosis: Toe pain[ICD9: 729.5] [facility] CPT-4: 48890 07/28/2012 ([id number]) 38061 EST. PATIENT, LEVEL IV Diagnosis: ESSENTIAL HYPERTENSION[SNOMED: 29621131] Diagnosis: HYPERLIPIDEMIA[ICD9: 272.4] KARSTEN Taylor MD CPT-4: 70897 04/13/2012 ([id number]) 92849 EST. PATIENT, LEVEL IV Diagnosis: ESSENTIAL HYPERTENSION[SNOMED: 72414476] Diagnosis: HYPERLIPIDEMIA[ICD9: 272.4] KARSTEN Taylor MD CPT-4: 33488 09/24/2011 OFFICE VISIT, NEW - LEVEL 4 Diagnosis: ESSENTIAL HYPERTENSION[SNOMED: 71710413] Diagnosis: HYPERLIPIDEMIA[ICD9: 272.4] Diagnosis: VACCIN STREP PNEUMONIAE[ICD9: V03.82] Diagnosis: Insomnia[ICD9: 780.52] [facility] CPT-4: 44450 06/25/2011 Plan of Care Planned Activity Notes Codes Status Date Appointment: April Ugalde WPtel: [facility]5 [facility] (15 min) Moderate 02/03/2019 Appointment: April Ugalde WPtel: [facility]5 [facility] (15 min) Moderate 01/10/2019 Patient Education: Patient [...] current medications. 07/12/2018 Appointment: April Ugalde WPtel: [address] [place], [place] [id number] (15 min) Moderate 07/12/2018 Patient Education: Patient [...] at home. 03/08/2018 Appointment: April Ugalde WPtel: [phone] [facility] [place] (15 min) Moderate 03/08/2018 Appointment: April Ugalde WPtel: [phone] [facility] (15 min) Moderate 03/08/2018 Patient Education: Patient Medication Summary Completed 03/08/2018 Visit Plan: Hypertension - well controlled - continue with current medications, continue with no added salt diet. Pt has been encouraged to exercise daily. The pt has been advised to call the office if there are any acute concerns about change in blood pressure readings at home. 10/28/2017 Appointment: April Ugalde WPtel: [phone] [facility] (15 min) Moderate 10/28/2017 Patient Education: Patient [...] to medications. 10/07/2017 Appointment: April Ugalde WPtel: [phone] [facility] (15 min) Moderate 10/07/2017 Patient Education: Patient Medication Summary Completed 10/07/2017 Appointment: April Ugalde WPtel: [phone] [facility] (15 min) Moderate 09/28/2017 Visit Plan: Hypertension [...] to medications. 03/26/2017 Appointment: April Ugalde WPtel: [phone] [facility] (15 min) Moderate 03/26/2017 Patient Education: Patient [...] renal functioning. 09/25/2016 Appointment: April Ugalde WPtel: [facility]6 [facility] [place] (15 min) Moderate 09/25/2016 Patient Education: Patient Medication Summary Completed 09/25/2016 Appointment: April Ugalde WPtel: [phone] [facility] (15 min) Moderate 07/29/2016 Visit Plan: Hypertension [...] 07/30/2015 Patient Education: Hypertension Completed 07/30/2015 Appointment: [facility] 07/04/2015 Patient Education: Patient Medication Summary Completed [...] shot today 05/11/2014 Appointment: April Ugalde WPtel: [address] [place], [place] [phone] Follow up 05/11/2014 Patient Education: Patient Medication [...] home. 02/07/2013 [facility]ment[phone] [facility] 02/07/2013 Patient Education: Patient Medication [...] [place]. 07/28/2012 [facility]: [phone] [facility] 07/28/2012 Patient Education: Hypertension Completed 07/28/2012 Patient [...] medications. 04/13/2012 Appointment: April Ugalde WPtel: [phone] [facility] Other 04/13/2012 Patient Education: Patient Medication Summary [...] to medications. 09/24/2011 Appointment: [facility]el[phone] Other 09/24/2011 Patient Education: Patient Medication Summary [...] mg. 06/25/2011 Appointment: [facility] Ugalde [facility]el[phone] New [facility] 06/25/2011 Patient Education: Patient Medication [...] on melatonin up to 10 mg. [employer] [facility] [employer]. [facility] - pt [...]
--- OUTSIDE RECORDS SUMMARY | 2019-03-11 18:12 | XMS REPORT | CCD ---
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/31/2012 Marital status Unknown 06/25/[address]: 319781227 Never smoker 06/25/[address]: 465852 Currently drinks alcohol 7 weekly 06/25/2011 Has [...] Start Date Stop Date Status Fill Instructions Lipitor 40 mg tablet RxNorm: 655865 1 Tablet(s) PO daily 01/05/2019 08/02/2019 Active Toprol XL 25 mg tablet,extended release RxNorm: 125694 TAKE 1 TABLET BY MOUTH ONCE DAILY 01/03/2019 No Stop Date Active Lipitor 40 mg tablet RxNorm: 461412 1 Tablet(s) PO daily 06/18/2018 10/15/2018 Inactive Trilipix 135 mg capsule,delayed release RxNorm: 313704 Capsule(s) TAKE ONE CAPSULE BY MOUTH AT BEDTIME 05/06/2018 No Stop Date Active sertraline 50 mg tablet RxNorm: 377334 Tablet(s) TAKE ONE TABLET BY MOUTH ONCE DAILY 11/12/2017 11/06/2018 Inactive Toprol XL 25 mg tablet,extended release RxNorm: 909146 1 Tablet(s) PO daily 11/12/2017 11/06/2018 Inactive losartan 100 mg tablet RxNorm: 062286 1 Tablet(s) PO daily 10/07/2017 05/04/2018 Inactive Trilipix 135 mg capsule,delayed release RxNorm: 967038 TAKE ONE CAPSULE BY MOUTH AT BEDTIME 09/14/2017 05/05/2018 Inactive sertraline 50 mg tablet RxNorm: 376371 TAKE ONE TABLET BY MOUTH ONCE DAILY 05/12/2017 11/11/2017 Inactive Trilipix 135 mg capsule,delayed release RxNorm: 524704 1 Capsule(s) PO QHS 04/17/2017 07/15/2017 Inactive Trilipix 135 mg capsule,delayed release RxNorm: 970850 1 Capsule(s) PO QHS 04/17/2017 04/16/2017 Inactive Toprol XL 25 mg tablet,extended release RxNorm: 578018 1 Tablet(s) PO daily 04/17/2017 10/13/2017 Inactive Toprol XL 25 mg tablet,extended release RxNorm: 887605 1 Tablet(s) PO daily 04/17/2017 04/16/2017 Inactive enalapril maleate 20 mg tablet RxNorm: 078477 1 Tablet(s) PO QHS 05/13/2016 10/06/2017 Inactive sertraline 50 mg tablet RxNorm: 453569 1 Tablet(s) PO daily 01/24/2016 05/22/2016 Inactive Fosamax 70 mg tablet RxNorm: 790470 1 Tablet(s) PO QW 06/30/2014 06/24/2015 Inactive Fosamax 70 mg tablet RxNorm: 091252 1 Tablet(s) PO QW 06/30/2014 06/29/2014 Inactive ivermectin 3 mg tablet RxNorm: 443796 5 Tablet(s) PO daily may repeat on day 8 if needed 04/02/2012 04/01/2012 Inactive ivermectin 3 mg tablet RxNorm: 261227 5 Tablet(s) PO daily may repeat on day 8 if needed 04/02/2012 04/02/2012 Inactive Pneumovax 23 25 mcg/0.5 mL Injection RxNorm: 755446 Milliliter(s) Inj 06/25/2011 06/25/2011 Inactive hydrochlorothiazide 25 mg tablet RxNorm: 004521 1 Tablet(s) PO daily No Start Date Active folic acid 800 mcg tablet RxNorm: 966107 1 Tablet(s) PO daily No Start Date Active Fosamax 70 mg Tab RxNorm: 431447 1 Tablet(s) PO weekly No Start Date 10/06/2017 Inactive melatonin 10 mg tablet RxNorm: 6104633 1 Tablet(s) PO daily No Start Date 10/06/2017 Inactive enalapril maleate 20 mg Tab RxNorm: 604657 1 Tablet(s) PO QHS No Start Date 05/12/2016 Inactive Vitamin D 1,000 unit Cap RxNorm: 120544 1 Capsule(s) PO daily No Start Date 10/06/2017 Inactive triamterine HCTZ 25/37.5 mg RxNorm: 1 PO daily No Start Date 04/12/2012 Inactive sertraline 50 mg Tab RxNorm: 570993 1 Tablet(s) PO daily No Start Date 01/23/2016 Inactive multivitamin Cap RxNorm: 1 Capsule(s) PO daily No Start Date 10/06/2017 Inactive calcium 500 mg Tab RxNorm: 1 Tablet(s) PO daily No Start Date 10/06/2017 Inactive triamterene-hydrochlorothiazide 37.5 mg-25 mg Tab RxNorm: 464196 1 Tablet(s) PO daily No Start Date 04/19/2017 Inactive Lipitor 40 mg Tab RxNorm: 494075 1 Tablet(s) PO daily No Start Date 06/17/2018 Inactive losartan 25 mg tablet RxNorm: 578101 1 Tablet(s) PO daily No Start Date 10/06/2017 Inactive Tylenol PM Extra Strength 25 mg-500 mg Tab RxNorm: 6450909 1 Tablet(s) PO QHS No Start Date 02/06/2013 Inactive Restasis 0.05 % eye drops in a dropperette RxNorm: 314905 ophthalmic No Start Date 07/11/2018 Inactive Estring 2 mg Vaginal RxNorm: 454644 1 VAG q 3 month No Start Date 09/24/2016 Inactive Medication Administered Medication Codes Instructions Start Date Status Pneumovax 23 25 mcg/0.5 mL Injection RxNorm: 703692 Milliliter 06/25/2011 No longer Active Immunizations Vaccine [...] 33.5 pg 07/12/2018 Cbc With Differential Ord2 Chambers% 11.2 % 07/12/2018 Cbc With Differential Ord2 [...] 1.59 K/ul 07/12/2018 Cbc With Differential Ord2 Chambers ABS# 0.6 K/ul 07/12/2018 Cbc With Differential Ord2 Eos ABS# 0.3 K/ul 07/12/2018 Cbc With Differential Ord2 Baso ABS# 0.1 K/ul 07/12/2018 Lipid Ord30 CHOL 189 mg/dL 07/12/2018 Lipid Ord30 HDL 86.0 mg/dl 07/12/2018 Lipid Ord30 TRIG 47 mg/dL 07/12/2018 Lipid Ord30 LDL 94 mg/dL 07/12/2018 Lipid Ord30 C/HDL 2.2 Ratio 07/12/2018 Comp Metabolic Fky997 NA 138 mEq/L 07/12/2018 Comp Metabolic Wti869 K 4.0 mEq/L 07/12/2018 Comp Metabolic Geh947 CL 103 mEq/L 07/12/2018 Comp Metabolic Tsm894 CO2 25.0 mEq/L 07/12/2018 Comp Metabolic Oem000 ANION GAP 14 07/12/2018 Comp Metabolic Wwl658 GLUCOSE 94 mg/dL 07/12/2018 Comp Metabolic Rdf527 Creat 1.0 mg/dL 07/12/2018 Comp Metabolic Shd324 eGFR 57 ml/min/1.73m2 07/12/2018 Comp Metabolic Pgc584 BUN 24 mg/dL 07/12/2018 Comp Metabolic Bff163 B/C Ratio 23.8 Ratio 07/12/2018 Comp Metabolic Xao470 CALCIUM 9.2 mg/dL 07/12/2018 Comp Metabolic Qka309 ALK PHOS 32 U/L 07/12/2018 Comp Metabolic Gha551 AST(SGOT) 21 U/L 07/12/2018 Comp Metabolic Rvt107 ALT(SGPT) 12 U/L 07/12/2018 Comp Metabolic Dgw156 BILI T 0.7 mg/dL 07/12/2018 Comp Metabolic Boi981 ALBUMIN 4.1 g/dL 07/12/2018 Comp Metabolic Hcz114 TPRO 6.4 g/dL 07/12/2018 Comp Metabolic Kjq228 GLOB 2.3 g/dL 07/12/2018 Comp Metabolic Uga513 A/G Ratio 1.8 Ratio 07/12/2018 Comp Metabolic Lbx158 Osmo 279 mOsmo 07/12/2018 Tsh Ord6 TSH (3rd IS) 3.80 uIU/mL 07/12/2018 Comp Metabolic Hhl850 NA 142 mEq/L 10/26/2017 Comp Metabolic Gxd799 K 3.7 mEq/L 10/26/2017 Comp Metabolic Vjf471 CL 103 mEq/L 10/26/2017 Comp Metabolic Utp640 CO2 31.0 mEq/L 10/26/2017 Comp Metabolic Eeg794 ANION GAP 12 10/26/2017 Comp Metabolic Klw586 GLUCOSE 91 mg/dL 10/26/2017 Comp Metabolic Cgf860 Creat 0.9 mg/dL 10/26/2017 Comp Metabolic The126 eGFR 63 ml/min/1.73m2 10/26/2017 Comp Metabolic Mus526 BUN 22 mg/dL 10/26/2017 Comp Metabolic Fuu393 B/C Ratio 23.7 Ratio 10/26/2017 Comp Metabolic Dcs089 CALCIUM 9.3 mg/dL 10/26/2017 Comp Metabolic Air796 ALK PHOS 44 U/L 10/26/2017 Comp Metabolic Foy466 AST(SGOT) 22 U/L 10/26/2017 Comp Metabolic Uqm833 ALT(SGPT) 14 U/L 10/26/2017 Comp Metabolic Uad589 BILI T 0.6 mg/dL 10/26/2017 Comp Metabolic Wfi224 ALBUMIN 4.4 g/dL 10/26/2017 Comp Metabolic Qev482 TPRO 6.5 g/dL 10/26/2017 Comp Metabolic Ane161 GLOB 2.1 g/dL 10/26/2017 Comp Metabolic Bos987 A/G Ratio 2.1 Ratio 10/26/2017 Comp Metabolic Yvm249 Osmo 286 mOsmo 10/26/2017 Lipid Ord30 CHOL [...] 1994 Ears/Nose/Throat oral cavity/pharynx/larynx Overall: no masses 10/28/2017 [...] murmurs 02/07/2013 None Full Exam - General 1995 Abdomen abdominal exam Overall: no tenderness 02/07/2013 None Full Exam - General 1994 Abdomen abdominal exam Overall: normal bowel sounds 02/07/2013 None Full Exam - General 1994 Abdomen liver and spleen exam Overall: no hepatosplenomegaly 02/07/2013 None Full Exam - General 1995 [...] 1995 Ears/Nose/Throat oral cavity/pharynx/larynx Overall: no masses 07/28/2012 [...] tenderness 04/13/2012 None Full Exam - General 1995 [...] benign 09/24/2011 None Full Exam - General 1994 Neurologic gait Overall: no ataxia, no unsteadiness 09/24/2011 None Full Exam - General 1995 Neurologic cranial nerves Overall: crainial nerves 2 - 12 grossly intact 09/24/2011 None Full Exam - General 1995 Psychiatric orientation/consciousness Overall: oriented to person, place and time 09/24/2011 None Full Exam - General 1994 Psychiatric [...] Procedure Codes Date IMMUNIZATION ADMIN CPT- 4: 79389 07/04/2015 FLU VACC PRSV FREE INC ANTIG Formatting Model/CDA Sections, Assigned to/Carol Leon CPT-4: [id number] 07/04/2015 IMMUNIZATION ADMIN CPT- 4: 21174 05/11/2014 FLU VAC NO PRSV 4 GABRIEL 3 YRS+ CPT-4: 83327 05/11/2014 ZOSTER VACC SC (No charge, patient supplied vaccine) CPT-4: 16434XT 09/24/2011 Pneumococcal Polysaccharide Vaccine, 23-Valent, Ad CPT-4: 78961 06/25/2011 ADMIN PNEUMOCOCCAL VACCINE SNOMED CT: 43768180 CPT-4: G0009 06/25/2011 Vital Signs Date Vital 07/12/2018 Blood Pressure 1: 140/86 Code: 8480-6 BMI: 25.6 Code: 87088-1 Heart Rate 1: 69 bpm Height: 5'2" SpO2: 99% Weight: 140 lbs 03/08/2018 Blood Pressure 1: 140/74 Code: 8480-6 BMI: 24.5 Code: 76828-6 Heart Rate 1: 70 bpm Height: 5'2" SpO2: 98% Weight: 134 lbs 10/28/2017 Blood Pressure 1: 132/74 Code: 8480-6 BMI: 24.1 Code: 19188-7 Heart Rate 1: 66 bpm Height: 5'2" SpO2: 99% Weight: 132 lbs 10/07/2017 Blood Pressure 1: 184/70 Code: 8480-6 BMI: 24.5 Code: 23372-2 Heart Rate 1: 64 bpm Height: 5'2" SpO2: 99% Weight: 134 lbs 03/26/2017 Blood Pressure 1: 144/84 Code: 8480-6 BMI: 23.0 Code: 84123-8 Heart Rate 1: 72 bpm Height: 5'2" SpO2: 98% Weight: 126 lbs 09/25/2016 Blood Pressure 1: 146/78 Code: 8480-6 BMI: 22.7 Code: 47592-5 Heart Rate 1: 71 bpm Height: 5'2" SpO2: 97% Weight: 124 lbs 01/03/2016 Blood Pressure 1: 160/90 Code: 8480-6 BMI: 24.1 Code: 41866-0 Heart Rate 1: 83 bpm Height: 5'2" SpO2: 97% Weight: 131 lbs 8 oz 07/30/2015 Blood Pressure 1: 145/82 Code: 8480-6 BMI: 25.1 Code: 77531-0 Heart Rate 1: 72 bpm Height: 5'2" SpO2: 98% Weight: 137 lbs 05/11/2014 Blood Pressure 1: 138/88 Code: 8480-6 BMI: 24.9 Code: 75033-6 Heart Rate 1: 84 bpm Height: 5'2" Weight: 136 lbs 02/07/2013 Blood Pressure 1: 102/70 Code: 8480-6 BMI: 25.8 Code: 34851-6 Heart Rate 1: 76 bpm Height: 5'2" [...] 1: 134/76 Code: 8480-6 BMI: 25.2 Code: 02084-3 Heart Rate 1: 72 bpm Height: 5'2" [...] data Encounters Encounter Performer Location Codes Date ([id number]) 19264 EST. PATIENT, LEVEL IV Diagnosis: Essential (primary) hypertension[ICD10: I10] Diagnosis: Mixed hyperlipidemia[ICD10: E78.2] Diagnosis: Major depressive disorder, recurrent, moderate[ICD10: F33.1] April Ugalde MD, [facility] CPT-4: 17524 07/12/2018 ([id number]) 97944 EST. PATIENT, LEVEL III Diagnosis: Essential (primary) hypertension[ICD10: I10] April Ugalde MD, [facility] CPT-4: 78767 03/08/2018 ([id number]) 08236 EST. PATIENT, LEVEL III Diagnosis: Essential (primary) hypertension[ICD10: I10] April Ugalde MD, [facility] CPT-4: 43353 10/28/2017 ([id number]) 46326 EST. PATIENT, LEVEL IV Diagnosis: Essential (primary) hypertension[ICD10: I10] Diagnosis: Mixed hyperlipidemia[ICD10: E78.2] Diagnosis: Atherosclerosis of renal artery[ICD10: I70.1] [facility] CPT-4: 69039 10/07/2017 ([id number]) 85074 EST. PATIENT, LEVEL IV Diagnosis: Essential (primary) hypertension[ICD10: I10] Diagnosis: Mixed hyperlipidemia[ICD10: E78.2] [facility] CPT- 4: 71867 03/26/2017 ([id number]) PER PM REEVAL EST PAT 65+ YR Diagnosis: Encounter for general adult medical examination without abnormal findings[ICD10: Z00.00] April Ugalde MD [facility] CPT-4: 47312 09/25/2016 ([id number]) 58436 EST. PATIENT, LEVEL IV Diagnosis: Essential (primary) hypertension[ICD10: I10] Diagnosis: Mixed hyperlipidemia[ICD10: E78.2] KARSTEN Taylor MD CPT- 4: 04656 01/03/2016 ([id number]) PER PM REEVAL EST PAT 65+ YR Diagnosis: Encounter for general adult medical examination without abnormal findings[ICD10: Z00.00] April Ugalde MD [facility] CPT-4: 25574 07/30/2015 ([id number]) 49701 EST. PATIENT, LEVEL IV Diagnosis: VACCIN FOR INFLUENZA[ICD10: Z23] Diagnosis: ESSENTIAL HYPERTENSION[ICD9: 401.9] Diagnosis: Urinary incontinence[ICD9: 788.30] Diagnosis: HYPERLIPIDEMIA[ICD9: 272.4] [facility] CPT-4: 13720 05/11/2014 ([id number]) 13562 EST. PATIENT, LEVEL III Diagnosis: ESSENTIAL HYPERTENSION[SNOMED: 86014379] April Ugalde MD [facility] CPT-4: 93311 02/07/2013 ([id number]) 83789 EST. PATIENT, LEVEL IV Diagnosis: ESSENTIAL HYPERTENSION[SNOMED: 75918479] Diagnosis: HYPERLIPIDEMIA[ICD9: 272.4] Diagnosis: GENERAL OSTEOARTHROSIS[ICD9: 715.00] Diagnosis: Toe pain[ICD9: 729.5] [facility] CPT-4: 95451 07/28/2012 ([id number]) 89755 EST. PATIENT, LEVEL IV Diagnosis: ESSENTIAL HYPERTENSION[SNOMED: 51534567] Diagnosis: HYPERLIPIDEMIA[ICD9: 272.4] [facility] CPT-4: 01947 04/13/2012 ([id number]) 03624 EST. PATIENT, LEVEL IV Diagnosis: ESSENTIAL HYPERTENSION[SNOMED: 38887647] Diagnosis: HYPERLIPIDEMIA[ICD9: 272.4] [facility] CPT-4: 64537 09/24/2011 OFFICE VISIT, NEW - LEVEL 4 Diagnosis: ESSENTIAL HYPERTENSION[SNOMED: 17190038] Diagnosis: HYPERLIPIDEMIA[ICD9: 272.4] Diagnosis: VACCIN STREP PNEUMONIAE[ICD9: V03.82] Diagnosis: Insomnia[ICD9: 780.52] [facility] CPT-4: 75037 06/25/2011 Plan of Care Planned Activity Notes Codes Status Date Patient Education: Patient Medication Summary Completed 07/26/2018 [...] current medications. 07/12/2018 Appointment: [facility]galde [facility] [place] (15 min) Moderate 07/12/2018 Patient Education: Patient [...] at home. 03/08/2018 Appointment: April Ugalde [facility]Ptel[facility] [place] (15 min) Moderate 03/08/2018 Appointment: April Ugalde [facility]Ptel: [facility] [place] (15 min) Moderate 03/08/2018 Patient Education: [...] at home. 10/28/2017 Appointment: April Ugalde WPtel: [phone] [facility] [place] (15 min) Moderate 10/28/2017 Patient Education: Patient [...] to medications. 10/07/2017 Appointment: April Ugalde [facility]el[phone] [place] (15 min) Moderate 10/07/2017 Patient Education: Patient Medication Summary Completed 10/07/2017 Appointment: [facility]galde [phone] [place] (15 min) Moderate 09/28/2017 Visit Plan: Hypertension [...] medications. 03/26/2017 Appointment: April Ugalde WPtel: [phone] [facility] (15 min) Moderate 03/26/2017 Patient Education: [...] CBC, and renal functioning. 09/25/2016 Appointment: [facility] Uaglde [facility]Ptel[phone] [place] (15 min) Moderate 09/25/2016 Patient Education: Patient Medication Summary Completed 09/25/2016 Appointment: April Ugalde WPtel: [phone] [facility] (15 min) Moderate 07/29/2016 Visit Plan: [...] shot today 05/11/2014 Appointment: [facility]galde [phone] Follow up 05/11/2014 Patient Education: Patient Medication [...] at home. 02/07/2013 Appointment: April Ugalde WPtel: [phone] [facility] Follow up 02/07/2013 Patient Education: Patient Medication [...] [place]. 07/28/2012 Appointment: April Ugalde WPtel: [phone] [facility] [facility] 07/28/2012 Patient Education: Hypertension Completed 07/28/2012 Patient [...] to medications. 04/13/2012 Appointment: April Ugalde WPtel: [phone] [facility] Other 04/13/2012 Patient Education: Patient Medication [...] to medications. 09/24/2011 Appointment: April Ugalde WPtel: [phone] [facility] Other 09/24/2011 Patient Education: Patient Medication Summary [...] 10 mg. 06/25/2011 Appointment: April Ugalde WPtel: [phone] [facility] [place] New Patient 06/25/2011 Patient Education: Patient [...] on melatonin up to 10 mg. [facility] [place] - pt [...]
--- OUTSIDE RECORDS SUMMARY | 2019-03-11 18:14 | XMS REPORT | CCD ---
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 Marital status Unknown 06/25/[address]: 753840903 Never smoker 06/25/[address]: 561018 Currently drinks alcohol 7 weekly 06/25/2011 Has [...] Start Date Stop Date Status Fill Instructions Toprol XL 25 mg tablet,extended release RxNorm: 616615 TAKE 1 TABLET BY MOUTH ONCE DAILY 01/03/2019 No Stop Date Active Lipitor 40 mg tablet RxNorm: 910602 1 Tablet(s) PO daily 06/18/2018 10/15/2018 Inactive Trilipix 135 mg capsule,delayed release RxNorm: 087808 Capsule(s) TAKE ONE CAPSULE BY MOUTH AT BEDTIME 05/06/2018 No Stop Date Active sertraline 50 mg tablet RxNorm: 747914 Tablet(s) TAKE ONE TABLET BY MOUTH ONCE DAILY 11/12/2017 11/06/2018 Inactive Toprol XL 25 mg tablet,extended release RxNorm: 148784 1 Tablet(s) PO daily 11/12/2017 11/06/2018 Inactive losartan 100 mg tablet RxNorm: 796971 1 Tablet(s) PO daily 10/07/2017 05/04/2018 Inactive Trilipix 135 mg capsule,delayed release RxNorm: 919717 TAKE ONE CAPSULE BY MOUTH AT BEDTIME 09/14/2017 05/05/2018 Inactive sertraline 50 mg tablet RxNorm: 712640 TAKE ONE TABLET BY MOUTH ONCE DAILY 05/12/2017 11/11/2017 Inactive Trilipix 135 mg capsule,delayed release RxNorm: 584504 1 Capsule(s) PO QHS 04/17/2017 07/15/2017 Inactive Trilipix 135 mg capsule,delayed release RxNorm: 514026 1 Capsule(s) PO QHS 04/17/2017 04/16/2017 Inactive Toprol XL 25 mg tablet,extended release RxNorm: 222790 1 Tablet(s) PO daily 04/17/2017 10/13/2017 Inactive Toprol XL 25 mg tablet,extended release RxNorm: 755702 1 Tablet(s) PO daily 04/17/2017 04/16/2017 Inactive enalapril maleate 20 mg tablet RxNorm: 219388 1 Tablet(s) PO QHS 05/13/2016 10/06/2017 Inactive sertraline 50 mg tablet RxNorm: 683853 1 Tablet(s) PO daily 01/24/2016 05/22/2016 Inactive Fosamax 70 mg tablet RxNorm: 139526 1 Tablet(s) PO QW 06/30/2014 06/24/2015 Inactive Fosamax 70 mg tablet RxNorm: 418028 1 Tablet(s) PO QW 06/30/2014 06/29/2014 Inactive ivermectin 3 mg tablet RxNorm: 457826 5 Tablet(s) PO daily may repeat on day 8 if needed 04/02/2012 04/01/2012 Inactive ivermectin 3 mg tablet RxNorm: 889919 5 Tablet(s) PO daily may repeat on day 8 if needed 04/02/2012 04/02/2012 Inactive Pneumovax 23 25 mcg/0.5 mL Injection RxNorm: 176421 Milliliter(s) Inj 06/25/2011 06/25/2011 Inactive hydrochlorothiazide 25 mg tablet RxNorm: 322312 1 Tablet(s) PO daily No Start Date Active folic acid 800 mcg tablet RxNorm: 951220 1 Tablet(s) PO daily No Start Date Active Fosamax 70 mg Tab RxNorm: 371119 1 Tablet(s) PO weekly No Start Date 10/06/2017 Inactive melatonin 10 mg tablet RxNorm: 4461125 1 Tablet(s) PO daily No Start Date 10/06/2017 Inactive enalapril maleate 20 mg Tab RxNorm: 499453 1 Tablet(s) PO QHS No Start Date 05/12/2016 Inactive Vitamin D 1,000 unit Cap RxNorm: 320766 1 Capsule(s) PO daily No Start Date 10/06/2017 Inactive triamterine HCTZ 25/37.5 mg RxNorm: 1 PO daily No Start Date 04/12/2012 Inactive sertraline 50 mg Tab RxNorm: 152308 1 Tablet(s) PO daily No Start Date 01/23/2016 Inactive multivitamin Cap RxNorm: 1 Capsule(s) PO daily No Start Date 10/06/2017 Inactive calcium 500 mg Tab RxNorm: 1 Tablet(s) PO daily No Start Date 10/06/2017 Inactive triamterene-hydrochlorothiazide 37.5 mg-25 mg Tab RxNorm: 992814 1 Tablet(s) PO daily No Start Date 04/19/2017 Inactive Lipitor 40 mg Tab RxNorm: 148726 1 Tablet(s) PO daily No Start Date 06/17/2018 Inactive losartan 25 mg tablet RxNorm: 969438 1 Tablet(s) PO daily No Start Date 10/06/2017 Inactive Tylenol PM Extra Strength 25 mg-500 mg Tab RxNorm: 4046314 1 Tablet(s) PO QHS No Start Date 02/06/2013 Inactive Restasis 0.05 % eye drops in a dropperette RxNorm: 653832 ophthalmic No Start Date 07/11/2018 Inactive Estring 2 mg Vaginal RxNorm: 938775 1 VAG q 3 month No Start Date 09/24/2016 Inactive Medication Administered Medication Codes Instructions Start Date Status Pneumovax 23 25 mcg/0.5 mL Injection RxNorm: 991483 Milliliter 06/25/2011 No longer Active Immunizations Vaccine [...] 33.5 pg 07/12/2018 Cbc With Differential Ord2 [place]% 11.2 % 07/12/2018 Cbc With Differential Ord2 [...] 1.59 K/ul 07/12/2018 Cbc With Differential Ord2 [place] ABS# 0.6 K/ul 07/12/2018 Cbc With Differential Ord2 Eos ABS# 0.3 K/ul 07/12/2018 Cbc With Differential Ord2 Baso ABS# 0.1 K/ul 07/12/2018 Lipid Ord30 CHOL 189 mg/dL 07/12/2018 Lipid Ord30 HDL 86.0 mg/dl 07/12/2018 Lipid Ord30 TRIG 47 mg/dL 07/12/2018 Lipid Ord30 LDL 94 mg/dL 07/12/2018 Lipid Ord30 C/HDL 2.2 Ratio 07/12/2018 Comp Metabolic Bwa695 NA 138 mEq/L 07/12/2018 Comp Metabolic Ofw129 K 4.0 mEq/L 07/12/2018 Comp Metabolic Nnk115 CL 103 mEq/L 07/12/2018 Comp Metabolic Kbz276 CO2 25.0 mEq/L 07/12/2018 Comp Metabolic Xkq651 ANION GAP 14 07/12/2018 Comp Metabolic Yeb448 GLUCOSE 94 mg/dL 07/12/2018 Comp Metabolic Exn055 Creat 1.0 mg/dL 07/12/2018 Comp Metabolic Jel899 eGFR 57 ml/min/1.73m2 07/12/2018 Comp Metabolic Ynu766 BUN 24 mg/dL 07/12/2018 Comp Metabolic Efz800 B/C Ratio 23.8 Ratio 07/12/2018 Comp Metabolic Oxt280 CALCIUM 9.2 mg/dL 07/12/2018 Comp Metabolic Oko545 ALK PHOS 32 U/L 07/12/2018 Comp Metabolic Pzk440 AST(SGOT) 21 U/L 07/12/2018 Comp Metabolic Wng754 ALT(SGPT) 12 U/L 07/12/2018 Comp Metabolic Rks223 BILI T 0.7 mg/dL 07/12/2018 Comp Metabolic Aap651 ALBUMIN 4.1 g/dL 07/12/2018 Comp Metabolic Uhe176 TPRO 6.4 g/dL 07/12/2018 Comp Metabolic Grr361 GLOB 2.3 g/dL 07/12/2018 Comp Metabolic Zpj601 A/G Ratio 1.8 Ratio 07/12/2018 Comp Metabolic Nuk526 Osmo 279 mOsmo 07/12/2018 Tsh Ord6 TSH (3rd IS) 3.80 uIU/mL 07/12/2018 Comp Metabolic Bbu296 NA 142 mEq/L 10/26/2017 Comp Metabolic Ydo187 K 3.7 mEq/L 10/26/2017 Comp Metabolic Twg728 CL 103 mEq/L 10/26/2017 Comp Metabolic Mmm982 CO2 31.0 mEq/L 10/26/2017 Comp Metabolic Zkm530 ANION GAP 12 10/26/2017 Comp Metabolic Zwq485 GLUCOSE 91 mg/dL 10/26/2017 Comp Metabolic Kzt005 Creat 0.9 mg/dL 10/26/2017 Comp Metabolic Zjd347 eGFR 63 ml/min/1.73m2 10/26/2017 Comp Metabolic Ctn206 BUN 22 mg/dL 10/26/2017 Comp Metabolic Dok023 B/C Ratio 23.7 Ratio 10/26/2017 Comp Metabolic Ttf059 CALCIUM 9.3 mg/dL 10/26/2017 Comp Metabolic Kfw369 ALK PHOS 44 U/L 10/26/2017 Comp Metabolic Oqm329 AST(SGOT) 22 U/L 10/26/2017 Comp Metabolic Uhl685 ALT(SGPT) 14 U/L 10/26/2017 Comp Metabolic Hmr035 BILI T 0.6 mg/dL 10/26/2017 Comp Metabolic Key243 ALBUMIN 4.4 g/dL 10/26/2017 Comp Metabolic Uvu933 TPRO 6.5 g/dL 10/26/2017 Comp Metabolic Qyq793 GLOB 2.1 g/dL 10/26/2017 Comp Metabolic Tkr558 A/G Ratio 2.1 Ratio 10/26/2017 Comp Metabolic Gjv831 Osmo 286 mOsmo 10/26/2017 Lipid Ord30 CHOL [...] nourished 09/24/2011 None Full Exam - General 1995 Constitutional general appearance Overall: well developed 09/24/2011 [...] Procedure Codes Date IMMUNIZATION ADMIN CPT- 4: 32399 07/04/2015 FLU VACC PRSV FREE INC ANTIG Formatting Model/CDA Sections, Assigned to/Carol Leon CPT-4: [id number] 07/04/2015 IMMUNIZATION ADMIN CPT- 4: 45846 05/11/2014 FLU VAC NO PRSV 4 GABRIEL 3 YRS+ CPT-4: 09430 05/11/2014 ZOSTER VACC SC (No charge, patient supplied vaccine) CPT-4: 65580HQ 09/24/2011 Pneumococcal Polysaccharide Vaccine, 23-Valent, Ad CPT-4: 93709 06/25/2011 ADMIN PNEUMOCOCCAL VACCINE SNOMED CT: 99016330 CPT-4: G0009 06/25/2011 Vital Signs Date Vital 07/12/2018 Blood Pressure 1: 140/86 Code: 8480-6 BMI: 25.6 Code: 57343-8 Heart Rate 1: 69 bpm Height: 5'2" SpO2: 99% Weight: 140 lbs 03/08/2018 Blood Pressure 1: 140/74 Code: 8480-6 BMI: 24.5 Code: 52003-6 Heart Rate 1: 70 bpm Height: 5'2" SpO2: 98% Weight: 134 lbs 10/28/2017 Blood Pressure 1: 132/74 Code: 8480-6 BMI: 24.1 Code: 19758-5 Heart Rate 1: 66 bpm Height: 5'2" SpO2: 99% Weight: 132 lbs 10/07/2017 Blood Pressure 1: 184/70 Code: 8480-6 BMI: 24.5 Code: 24343-8 Heart Rate 1: 64 bpm Height: 5'2" SpO2: 99% Weight: 134 lbs 03/26/2017 Blood Pressure 1: 144/84 Code: 8480-6 BMI: 23.0 Code: 97807-2 Heart Rate 1: 72 bpm Height: 5'2" SpO2: 98% Weight: 126 lbs 09/25/2016 Blood Pressure 1: 146/78 Code: 8480-6 BMI: 22.7 Code: 66022-7 Heart Rate 1: 71 bpm Height: 5'2" SpO2: 97% Weight: 124 lbs 01/03/2016 Blood Pressure 1: 160/90 Code: 8480-6 BMI: 24.1 Code: 06788-3 Heart Rate 1: 83 bpm Height: 5'2" SpO2: 97% Weight: 131 lbs 8 oz 07/30/2015 Blood Pressure 1: 145/82 Code: 8480-6 BMI: 25.1 Code: 53035-7 Heart Rate 1: 72 bpm Height: 5'2" SpO2: 98% Weight: 137 lbs 05/11/2014 Blood Pressure 1: 138/88 Code: 8480-6 BMI: 24.9 Code: 41523-7 Heart Rate 1: 84 bpm Height: 5'2" Weight: 136 lbs 02/07/2013 Blood Pressure 1: 102/70 Code: 8480-6 BMI: 25.8 Code: 64014-1 Heart Rate 1: 76 bpm Height: 5'2" [...] 1: 134/76 Code: 8480-6 BMI: 25.2 Code: 76414-3 Heart Rate 1: 72 bpm Height: 5'2" [...] data Encounters Encounter Performer Location Codes Date ( 70049 EST. PATIENT, LEVEL IV Diagnosis: Essential (primary) hypertension[ICD10: I10] Diagnosis: Mixed hyperlipidemia[ICD10: E78.2] Diagnosis: Major depressive disorder, recurrent, moderate[ICD10: F33.1] April Ugalde MD, [facility] CPT-4: 87897 07/12/2018 ([id number]) 68773 EST. PATIENT, LEVEL III Diagnosis: Essential (primary) hypertension[ICD10: I10] April Ugalde MD [facility] CPT-4: 34425 03/08/2018 ([id number]) 44229 EST. PATIENT, LEVEL III Diagnosis: Essential (primary) hypertension[ICD10: I10] April Ugalde MD, [facility] CPT-4: 64000 10/28/2017 ([id number]) 47147 EST. PATIENT, LEVEL IV Diagnosis: Essential (primary) hypertension[ICD10: I10] Diagnosis: Mixed hyperlipidemia[ICD10: E78.2] Diagnosis: Atherosclerosis of renal artery[ICD10: I70.1] [facility] CPT-4: 86252 10/07/2017 ([id number]) 10598 EST. PATIENT, LEVEL IV Diagnosis: Essential (primary) hypertension[ICD10: I10] Diagnosis: Mixed hyperlipidemia[ICD10: E78.2] [facility] CPT- 4: 13043 03/26/2017 ([id number]) PER PM REEVAL EST PAT 65+ YR Diagnosis: Encounter for general adult medical examination without abnormal findings[ICD10: Z00.00] [facility] CPT-4: 54188 09/25/2016 ([id number]) 61841 EST. PATIENT, LEVEL IV Diagnosis: Essential (primary) hypertension[ICD10: I10] Diagnosis: Mixed hyperlipidemia[ICD10: E78.2] April Ugalde MD [facility] CPT- 4: 70053 01/03/2016 ([id number]) PER PM REEVAL EST PAT 65+ YR Diagnosis: Encounter for general adult medical examination without abnormal findings[ICD10: Z00.00] KARSTEN Taylor MD CPT-4: 19444 07/30/2015 ([id number]) 89574 EST. PATIENT, LEVEL IV Diagnosis: VACCIN FOR INFLUENZA[ICD10: Z23] Diagnosis: ESSENTIAL HYPERTENSION[ICD9: 401.9] Diagnosis: Urinary incontinence[ICD9: 788.30] Diagnosis: HYPERLIPIDEMIA[ICD9: 272.4] April Ugalde MD [facility] CPT-4: 21251 05/11/2014 ([id number]) 85303 EST. PATIENT, LEVEL III Diagnosis: ESSENTIAL HYPERTENSION[SNOMED: 70050742] April Ugalde MD [facility] CPT-4: 74742 02/07/2013 ([id number]) 53771 EST. PATIENT, LEVEL IV Diagnosis: ESSENTIAL HYPERTENSION[SNOMED: 01559299] Diagnosis: HYPERLIPIDEMIA[ICD9: 272.4] Diagnosis: GENERAL OSTEOARTHROSIS[ICD9: 715.00] Diagnosis: Toe pain[ICD9: 729.5] [facility] CPT-4: 50626 07/28/2012 ([id number]) 93153 EST. PATIENT, LEVEL IV Diagnosis: ESSENTIAL HYPERTENSION[SNOMED: 60375598] Diagnosis: HYPERLIPIDEMIA[ICD9: 272.4] April Ugalde MD, [facility] CPT-4: 42989 04/13/2012 ([id number]) 43996 EST. PATIENT, LEVEL IV Diagnosis: ESSENTIAL HYPERTENSION[SNOMED: 41952187] Diagnosis: HYPERLIPIDEMIA[ICD9: 272.4] April Ugalde MD, [facility] CPT-4: 20300 09/24/2011 OFFICE VISIT, NEW - LEVEL 4 Diagnosis: ESSENTIAL HYPERTENSION[SNOMED: 81612263] Diagnosis: HYPERLIPIDEMIA[ICD9: 272.4] Diagnosis: VACCIN STREP PNEUMONIAE[ICD9: V03.82] Diagnosis: Insomnia[ICD9: 780.52] [facility] CPT-4: 80157 06/25/2011 Plan of Care Planned Activity Notes [...] current medications. 07/12/2018 [facility]ment[phone] [facility] (15 min) Moderate 07/12/2018 Patient Education: Patient [...] home. 03/08/2018 Appointment: [facility]gal[facility] [phone] [facility] (15 min) Moderate 03/08/2018 Appointment: [facility]galde [phone] [facility] (15 min) Moderate 03/08/2018 Patient Education: Patient [...] home. 10/28/2017 Appointment: April Ugalde WPtel: [phone] [facility] (15 min) Moderate 10/28/2017 Patient Education: [...] medications. 10/07/2017 Appointment: [facility] Ugalde [phone] [facility] (15 min) Moderate 10/07/2017 Patient Education: Patient Medication Summary Completed 10/07/2017 Appointment: April Ugalde WPtel: [phone] [facility] (15 min) Moderate 09/28/2017 Visit Plan: [...] to medications. 03/26/2017 Appointment: April Ugalde WPtel: [phone] [facility] (15 min) Moderate 03/26/2017 Patient Education: [...] functioning. 09/25/2016 Appointment: April Ugalde WPtel: [phone] [facility] (15 min) Moderate 09/25/2016 Patient Education: Patient Medication Summary Completed 09/25/2016 Appointment: April Ugalde WPtel: [phone] [facility] [place] (15 min) Moderate 07/29/2016 Visit Plan: Hypertension [...] today 05/11/2014 Appointment: [facility]galde [facility] [phone] [facility] Follow up 05/11/2014 Patient Education: Patient Medication [...] at home. 02/07/2013 Appointment: [facility] Ugalde [facility] [phone] [facility] Follow up 02/07/2013 Patient Education: Patient Medication [...] [place]. 07/28/2012 Appointment: [facility]galde [facility] [phone] [facility] Other 07/28/2012 Patient Education: Hypertension Completed 07/28/2012 [...] medications. 04/13/2012 Appointment: [facility]galde [facility] [phone] [facility] Other 04/13/2012 Patient Education: Patient Medication Summary [...] medications. 09/24/2011 Appointment: April Ugalde WPtel: [phone] [facility] Other 09/24/2011 Patient Education: Patient Medication [...] mg. 06/25/2011 Appointment: April Ugalde WPtel: [phone] [facility] New Patient 06/25/2011 Patient Education: Patient Medication [...] on melatonin up to 10 mg. [facility] [employer] [place] [facility] [employer] - pt [...]
--- OUTSIDE RECORDS SUMMARY | 2019-03-11 18:20 | XMS REPORT | CCD ---
Author Author April Ugalde Organization April Uaglde MD, [facility] Address [address] [place] [address] Phone Care Team Providers Care Educational Fundraising Director Name Role Phone PP Unavailable CCM Unavailable Summary Purpose Interface Exchange Insurance Providers Payer name Policy type / Coverage type Covered libertarian ID Effective Begin Date Effective End Date WPS Medicare Part B Medicare Part B [id number] Unknown [facility] Medicare Part B [id number] Unknown Family history Brother Diagnosis Age At [...] Unknown House 07/31/2012 Employment Unknown 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/31/2012 Marital status Unknown 06/25/[address]: 804618653 Never smoker 06/25/[address]: 245770 Currently drinks alcohol 7 weekly 06/25/2011 Has [...] Fill Instructions Lipitor 40 mg tablet RxNorm: 261744 1 Tablet(s) PO daily 06/18/2018 10/15/2018 Active Trilipix 135 mg capsule,delayed release RxNorm: 341117 Capsule(s) TAKE ONE CAPSULE BY MOUTH AT BEDTIME 05/06/2018 No Stop Date Active sertraline 50 mg tablet RxNorm: 606325 Tablet(s) TAKE ONE TABLET BY MOUTH ONCE DAILY 11/12/2017 11/06/2018 Active Toprol XL 25 mg tablet,extended release RxNorm: 341518 1 Tablet(s) PO daily 11/12/2017 11/06/2018 Active losartan 100 mg tablet RxNorm: 836618 1 Tablet(s) PO daily 10/07/2017 05/04/2018 Inactive Trilipix 135 mg capsule,delayed release RxNorm: 039767 TAKE ONE CAPSULE BY MOUTH AT BEDTIME 09/14/2017 05/05/2018 Inactive sertraline 50 mg tablet RxNorm: 043351 TAKE ONE TABLET BY MOUTH ONCE DAILY 05/12/2017 11/11/2017 Inactive Trilipix 135 mg capsule,delayed release RxNorm: 266478 1 Capsule(s) PO QHS 04/17/2017 07/15/2017 Inactive Trilipix 135 mg capsule,delayed release RxNorm: 958262 1 Capsule(s) PO QHS 04/17/2017 04/16/2017 Inactive Toprol XL 25 mg tablet,extended release RxNorm: 084697 1 Tablet(s) PO daily 04/17/2017 10/13/2017 Inactive Toprol XL 25 mg tablet,extended release RxNorm: 462328 1 Tablet(s) PO daily 04/17/2017 04/16/2017 Inactive enalapril maleate 20 mg tablet RxNorm: 798805 1 Tablet(s) PO QHS 05/13/2016 10/06/2017 Inactive sertraline 50 mg tablet RxNorm: 160367 1 Tablet(s) PO daily 01/24/2016 05/22/2016 Inactive Fosamax 70 mg tablet RxNorm: 749039 1 Tablet(s) PO QW 06/30/2014 06/24/2015 Inactive Fosamax 70 mg tablet RxNorm: 409669 1 Tablet(s) PO QW 06/30/2014 06/29/2014 Inactive ivermectin 3 mg tablet RxNorm: 516569 5 Tablet(s) PO daily may repeat on day 8 if needed 04/02/2012 04/01/2012 Inactive ivermectin 3 mg tablet RxNorm: 456594 5 Tablet(s) PO daily may repeat on day 8 if needed 04/02/2012 04/02/2012 Inactive Pneumovax 23 25 mcg/0.5 mL Injection RxNorm: 280990 Milliliter(s) Inj 06/25/2011 06/25/2011 Inactive hydrochlorothiazide 25 mg tablet RxNorm: 978151 1 Tablet(s) PO daily No Start Date Active folic acid 800 mcg tablet RxNorm: 720996 1 Tablet(s) PO daily No Start Date Active Fosamax 70 mg Tab RxNorm: 543371 1 Tablet(s) PO weekly No Start Date 10/06/2017 Inactive melatonin 10 mg tablet RxNorm: 4517999 1 Tablet(s) PO daily No Start Date 10/06/2017 Inactive enalapril maleate 20 mg Tab RxNorm: 159944 1 Tablet(s) PO QHS No Start Date 05/12/2016 Inactive Vitamin D 1,000 unit Cap RxNorm: 003443 1 Capsule(s) PO daily No Start Date 10/06/2017 Inactive triamterine HCTZ 25/37.5 mg RxNorm: 1 PO daily No Start Date 04/12/2012 Inactive sertraline 50 mg Tab RxNorm: 915481 1 Tablet(s) PO daily No Start Date 01/23/2016 Inactive multivitamin Cap RxNorm: 1 Capsule(s) PO daily No Start Date 10/06/2017 Inactive calcium 500 mg Tab RxNorm: 1 Tablet(s) PO daily No Start Date 10/06/2017 Inactive triamterene-hydrochlorothiazide 37.5 mg-25 mg Tab RxNorm: 972608 1 Tablet(s) PO daily No Start Date 04/19/2017 Inactive Lipitor 40 mg Tab RxNorm: 250571 1 Tablet(s) PO daily No Start Date 06/17/2018 Inactive losartan 25 mg tablet RxNorm: 770814 1 Tablet(s) PO daily No Start Date 10/06/2017 Inactive Tylenol PM Extra Strength 25 mg-500 mg Tab RxNorm: 5965007 1 Tablet(s) PO QHS No Start Date 02/06/2013 Inactive Restasis 0.05 % eye drops in a dropperette RxNorm: 401505 ophthalmic No Start Date 07/11/2018 Inactive Estring 2 mg Vaginal RxNorm: 546576 1 VAG q 3 month No Start Date 09/24/2016 Inactive Medication Administered Medication Codes Instructions Start Date Status Pneumovax 23 25 mcg/0.5 mL Injection RxNorm: 562750 Milliliter 06/25/2011 No longer Active Immunizations Vaccine [...] 33.5 pg 07/12/2018 Cbc With Differential Ord2 [place]% 11.2 % 07/12/2018 Cbc With Differential Ord2 [...] 1.59 K/ul 07/12/2018 Cbc With Differential Ord2 [place] ABS# 0.6 K/ul 07/12/2018 Cbc With Differential Ord2 Eos ABS# 0.3 K/ul 07/12/2018 Cbc With Differential Ord2 Baso ABS# 0.1 K/ul 07/12/2018 Lipid Ord30 CHOL 189 mg/dL 07/12/2018 Lipid Ord30 HDL 86.0 mg/dl 07/12/2018 Lipid Ord30 TRIG 47 mg/dL 07/12/2018 Lipid Ord30 LDL 94 mg/dL 07/12/2018 Lipid Ord30 C/HDL 2.2 Ratio 07/12/2018 Comp Metabolic Cws642 NA 138 mEq/L 07/12/2018 Comp Metabolic Emt610 K 4.0 mEq/L 07/12/2018 Comp Metabolic Ygk637 CL 103 mEq/L 07/12/2018 Comp Metabolic Vfu813 CO2 25.0 mEq/L 07/12/2018 Comp Metabolic Pub565 ANION GAP 14 07/12/2018 Comp Metabolic Tgd022 GLUCOSE 94 mg/dL 07/12/2018 Comp Metabolic Syj656 Creat 1.0 mg/dL 07/12/2018 Comp Metabolic Zrh194 eGFR 57 ml/min/1.73m2 07/12/2018 Comp Metabolic Hlo808 BUN 24 mg/dL 07/12/2018 Comp Metabolic Xoi100 B/C Ratio 23.8 Ratio 07/12/2018 Comp Metabolic Kbu639 CALCIUM 9.2 mg/dL 07/12/2018 Comp Metabolic Zyk496 ALK PHOS 32 U/L 07/12/2018 Comp Metabolic Bht867 AST(SGOT) 21 U/L 07/12/2018 Comp Metabolic Hix187 ALT(SGPT) 12 U/L 07/12/2018 Comp Metabolic Vhb827 BILI T 0.7 mg/dL 07/12/2018 Comp Metabolic Dsc049 ALBUMIN 4.1 g/dL 07/12/2018 Comp Metabolic Tsc683 TPRO 6.4 g/dL 07/12/2018 Comp Metabolic Skb437 GLOB 2.3 g/dL 07/12/2018 Comp Metabolic Bpp927 A/G Ratio 1.8 Ratio 07/12/2018 Comp Metabolic Abg251 Osmo 279 mOsmo 07/12/2018 Tsh Ord6 TSH (3rd IS) 3.80 uIU/mL 07/12/2018 Comp Metabolic Nno489 NA 142 mEq/L 10/26/2017 Comp Metabolic Wkn581 K 3.7 mEq/L 10/26/2017 Comp Metabolic Kry344 CL 103 mEq/L 10/26/2017 Comp Metabolic Wfu107 CO2 31.0 mEq/L 10/26/2017 Comp Metabolic Cqo623 ANION GAP 12 10/26/2017 Comp Metabolic Ujj297 GLUCOSE 91 mg/dL 10/26/2017 Comp Metabolic Apq672 Creat 0.9 mg/dL 10/26/2017 Comp Metabolic Mme792 eGFR 63 ml/min/1.73m2 10/26/2017 Comp Metabolic Zls999 BUN 22 mg/dL 10/26/2017 Comp Metabolic Chs877 B/C Ratio 23.7 Ratio 10/26/2017 Comp Metabolic Dwp122 CALCIUM 9.3 mg/dL 10/26/2017 Comp Metabolic Gwr621 ALK PHOS 44 U/L 10/26/2017 Comp Metabolic Xei157 AST(SGOT) 22 U/L 10/26/2017 Comp Metabolic Fos348 ALT(SGPT) 14 U/L 10/26/2017 Comp Metabolic Aex733 BILI T 0.6 mg/dL 10/26/2017 Comp Metabolic Jjd365 ALBUMIN 4.4 g/dL 10/26/2017 Comp Metabolic Gwl438 TPRO 6.5 g/dL 10/26/2017 Comp Metabolic Ogf382 GLOB 2.1 g/dL 10/26/2017 Comp Metabolic Dbu261 A/G Ratio 2.1 Ratio 10/26/2017 Comp Metabolic Cun490 Osmo 286 mOsmo 10/26/2017 Lipid Ord30 CHOL [...] Procedure Codes Date IMMUNIZATION ADMIN CPT- 4: 32914 07/04/2015 FLU VACC PRSV FREE INC ANTIG Formatting Model/CDA Sections, Assigned to/Carol Leon CPT-4: 44067Kvrroru 07/04/2015 IMMUNIZATION ADMIN CPT- 4: 77513 05/11/2014 FLU VAC NO PRSV 4 GABRIEL 3 YRS+ CPT-4: 00304 05/11/2014 ZOSTER VACC SC (No charge, patient supplied vaccine) CPT-4: 96429VX 09/24/2011 Pneumococcal Polysaccharide Vaccine, 23-Valent, Ad CPT-4: 58342 06/25/2011 ADMIN PNEUMOCOCCAL VACCINE SNOMED CT: 48038889 CPT-4: G0009 06/25/2011 Vital Signs Date Vital 07/12/2018 Blood Pressure 1: 140/86 Code: 8480-6 BMI: 25.6 Code: 51810-1 Heart Rate 1: 69 bpm Height: 5'2" SpO2: 99% Weight: 140 lbs 03/08/2018 Blood Pressure 1: 140/74 Code: 8480-6 BMI: 24.5 Code: 57305-4 Heart Rate 1: 70 bpm Height: 5'2" SpO2: 98% Weight: 134 lbs 10/28/2017 Blood Pressure 1: 132/74 Code: 8480-6 BMI: 24.1 Code: 04824-8 Heart Rate 1: 66 bpm Height: 5'2" SpO2: 99% Weight: 132 lbs 10/07/2017 Blood Pressure 1: 184/70 Code: 8480-6 BMI: 24.5 Code: 53425-0 Heart Rate 1: 64 bpm Height: 5'2" SpO2: 99% Weight: 134 lbs 03/26/2017 Blood Pressure 1: 144/84 Code: 8480-6 BMI: 23.0 Code: 69902-5 Heart Rate 1: 72 bpm Height: 5'2" SpO2: 98% Weight: 126 lbs 09/25/2016 Blood Pressure 1: 146/78 Code: 8480-6 BMI: 22.7 Code: 21944-2 Heart Rate 1: 71 bpm Height: 5'2" SpO2: 97% Weight: 124 lbs 01/03/2016 Blood Pressure 1: 160/90 Code: 8480-6 BMI: 24.1 Code: 19681-4 Heart Rate 1: 83 bpm Height: 5'2" SpO2: 97% Weight: 131 lbs 8 oz 07/30/2015 Blood Pressure 1: 145/82 Code: 8480-6 BMI: 25.1 Code: 21111-2 Heart Rate 1: 72 bpm Height: 5'2" SpO2: 98% Weight: 137 lbs 05/11/2014 Blood Pressure 1: 138/88 Code: 8480-6 BMI: 24.9 Code: 21975-9 Heart Rate 1: 84 bpm Height: 5'2" Weight: 136 lbs 02/07/2013 Blood Pressure 1: 102/70 Code: 8480-6 BMI: 25.8 Code: 89543-6 Heart Rate 1: 76 bpm Height: 5'2" [...] 1: 134/76 Code: 8480-6 BMI: 25.2 Code: 78032-1 Heart Rate 1: 72 bpm Height: 5'2" [...] data Encounters Encounter Performer Location Codes Date ([id number]) 42630 EST. PATIENT, LEVEL IV Diagnosis: Essential (primary) hypertension[ICD10: I10] Diagnosis: Mixed hyperlipidemia[ICD10: E78.2] Diagnosis: Major depressive disorder, recurrent, moderate[ICD10: F33.1] April Ugalde MD, [facility] CPT-4: 49928 07/12/2018 ([id number]) 67244 EST. PATIENT, LEVEL III Diagnosis: Essential (primary) hypertension[ICD10: I10] April Ugalde MD, [facility] CPT-4: 61964 03/08/2018 ([id number]) 11371 EST. PATIENT, LEVEL III Diagnosis: Essential (primary) hypertension[ICD10: I10] April Ugalde MD, [facility] CPT-4: 40662 10/28/2017 ([id number]) 80341 EST. PATIENT, LEVEL IV Diagnosis: Essential (primary) hypertension[ICD10: I10] Diagnosis: Mixed hyperlipidemia[ICD10: E78.2] Diagnosis: Atherosclerosis of renal artery[ICD10: I70.1] April Ugalde MD, [facility] CPT-4: 04731 10/07/2017 ([id number]) 88212 EST. PATIENT, LEVEL IV Diagnosis: Essential (primary) hypertension[ICD10: I10] Diagnosis: Mixed hyperlipidemia[ICD10: E78.2] April Ugalde MD, [facility] CPT- 4: 72467 03/26/2017 ([id number]) PER PM REEVAL EST PAT 65+ YR Diagnosis: Encounter for general adult medical examination without abnormal findings[ICD10: Z00.00] [facility] CPT-4: 06364 09/25/2016 ([id number]) 36448 EST. PATIENT, LEVEL IV Diagnosis: Essential (primary) hypertension[ICD10: I10] Diagnosis: Mixed hyperlipidemia[ICD10: E78.2] April Ugalde MD [facility] CPT- 4: 67991 01/03/2016 ([id number]) PER PM REEVAL EST PAT 65+ YR Diagnosis: Encounter for general adult medical examination without abnormal findings[ICD10: Z00.00] KARSTEN Taylor MD CPT-4: 66712 07/30/2015 ([id number]) 73805 EST. PATIENT, LEVEL IV Diagnosis: VACCIN FOR INFLUENZA[ICD10: Z23] Diagnosis: ESSENTIAL HYPERTENSION[ICD9: 401.9] Diagnosis: Urinary incontinence[ICD9: 788.30] Diagnosis: HYPERLIPIDEMIA[ICD9: 272.4] [facility] CPT-4: 76005 05/11/2014 ([id number]) 37453 EST. PATIENT, LEVEL III Diagnosis: ESSENTIAL HYPERTENSION[SNOMED: 75673393] KARSTEN Taylor MD CPT-4: 53657 02/07/2013 ([id number]) 47620 EST. PATIENT, LEVEL IV Diagnosis: ESSENTIAL HYPERTENSION[SNOMED: 03934761] Diagnosis: HYPERLIPIDEMIA[ICD9: 272.4] Diagnosis: GENERAL OSTEOARTHROSIS[ICD9: 715.00] Diagnosis: Toe pain[ICD9: 729.5] April Ugalde MD [facility] CPT-4: 59996 07/28/2012 ([id number]) 35802 EST. PATIENT, LEVEL IV Diagnosis: ESSENTIAL HYPERTENSION[SNOMED: 18016927] Diagnosis: HYPERLIPIDEMIA[ICD9: 272.4] KARSTEN Taylor MD CPT-4: 79814 04/13/2012 ([id number]) 59838 EST. PATIENT, LEVEL IV Diagnosis: ESSENTIAL HYPERTENSION[SNOMED: 88664944] Diagnosis: HYPERLIPIDEMIA[ICD9: 272.4] [facility] CPT-4: 11237 09/24/2011 OFFICE VISIT, NEW - LEVEL 4 Diagnosis: ESSENTIAL HYPERTENSION[SNOMED: 29333063] Diagnosis: HYPERLIPIDEMIA[ICD9: 272.4] Diagnosis: VACCIN STREP PNEUMONIAE[ICD9: V03.82] Diagnosis: Insomnia[ICD9: 780.52] [facility] CPT-4: 48300 06/25/2011 Plan of Care Planned Activity Notes Codes Status Date Patient Education: Patient Medication Summary Completed 07/26/2018 Care Plan: SCREENINGMAMMOGRAPHYDIGITAL LOINC : 26006-7 Pending 07/26/2018 Visit Plan: Hypertension - well controlled [...] No change in current medications. 07/12/2018 Appointment: pAril Ugalde WPtel: [phone] [facility] (15 min) Moderate 07/12/2018 Patient Education: Patient [...] at home. 03/08/2018 [facility]ment[phone] ([facility]) Moderate 03/08/2018 Appointment[phone] [facility] ([facility] min) Moderate 03/08/2018 Patient Education: Patient [...] home. 10/28/2017 Appointment: April Ugalde WPtel: [phone] [facility] (15 min) Moderate 10/28/2017 Patient Education: Patient [...] medications. 10/07/2017 App[facility]ment[phone] [facility] ([facility] min) Moderate 10/07/2017 Patient Education: Patient Medication Summary Completed 10/07/2017 [facility]ment[phone] [facility] ([facility] min) Moderate 09/28/2017 Visit Plan: Hypertension [...] medications. 03/26/2017 Appointment: April Ugalde WPtel: [phone] [facility] (15 min) Moderate 03/26/2017 Patient Education: Patient [...] functioning. 09/25/2016 Appointment: April Ugalde WPtel: [phone] [facility] [place] (15 min) Moderate 09/25/2016 Patient Education: Patient Medication Summary Completed 09/25/2016 Appointment: April Ugalde WPtel: [phone] [facility] [place] (15 min) Moderate 07/29/2016 Visit Plan: [...] today 05/11/2014 Appointment: [phone] [facility] [place] Follow up 05/11/2014 Patient Education: Patient Medication [...] at home. 02/07/2013 Appointment: [phone] [facility] [place] Follow up 02/07/2013 Patient Education: Patient Medication [...] [place]. 07/28/2012 Appointment: April Ugalde WPtel: [phone] Other 07/28/2012 Patient Education: Hypertension Completed 07/28/2012 [...] to medications. 04/13/2012 Appointment: April Ugalde WPtel: [phone] [facility] Other 04/13/2012 Patient Education: Patient Medication Summary [...] medications. 09/24/2011 Appointment: April Ugalde WPtel: [phone] [facility] Other 09/24/2011 Patient Education: Patient Medication Summary [...] mg. 06/25/2011 Appointment: [phone] [facility] New Patient 06/25/2011 Patient Education: Patient Medication [...] on melatonin up to 10 mg. [facility] [employer] [employer]. [facility] - pt [...]
--- OUTSIDE RECORDS SUMMARY | 2019-03-11 18:22 | XMS REPORT | CCD ---
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/31/2012 Marital status Unknown 06/25/[address]: 728422119 Never smoker 06/25/[address]: 625598 Currently drinks alcohol 7 weekly 06/25/2011 Has [...] Fill Instructions Lipitor 40 mg tablet RxNorm: 568295 1 Tablet(s) PO daily 06/18/2018 10/15/2018 Active Trilipix 135 mg capsule,delayed release RxNorm: 766551 Capsule(s) TAKE ONE CAPSULE BY MOUTH AT BEDTIME 05/06/2018 No Stop Date Active sertraline 50 mg tablet RxNorm: 082822 Tablet(s) TAKE ONE TABLET BY MOUTH ONCE DAILY 11/12/2017 11/06/2018 Active Toprol XL 25 mg tablet,extended release RxNorm: 379582 1 Tablet(s) PO daily 11/12/2017 11/06/2018 Active losartan 100 mg tablet RxNorm: 185125 1 Tablet(s) PO daily 10/07/2017 05/04/2018 Inactive Trilipix 135 mg capsule,delayed release RxNorm: 474226 TAKE ONE CAPSULE BY MOUTH AT BEDTIME 09/14/2017 05/05/2018 Inactive sertraline 50 mg tablet RxNorm: 459843 TAKE ONE TABLET BY MOUTH ONCE DAILY 05/12/2017 11/11/2017 Inactive Trilipix 135 mg capsule,delayed release RxNorm: 687111 1 Capsule(s) PO QHS 04/17/2017 07/15/2017 Inactive Trilipix 135 mg capsule,delayed release RxNorm: 800070 1 Capsule(s) PO QHS 04/17/2017 04/16/2017 Inactive Toprol XL 25 mg tablet,extended release RxNorm: 005484 1 Tablet(s) PO daily 04/17/2017 10/13/2017 Inactive Toprol XL 25 mg tablet,extended release RxNorm: 935978 1 Tablet(s) PO daily 04/17/2017 04/16/2017 Inactive enalapril maleate 20 mg tablet RxNorm: 721374 1 Tablet(s) PO QHS 05/13/2016 10/06/2017 Inactive sertraline 50 mg tablet RxNorm: 448214 1 Tablet(s) PO daily 01/24/2016 05/22/2016 Inactive Fosamax 70 mg tablet RxNorm: 234720 1 Tablet(s) PO QW 06/30/2014 06/24/2015 Inactive Fosamax 70 mg tablet RxNorm: 556141 1 Tablet(s) PO QW 06/30/2014 06/29/2014 Inactive ivermectin 3 mg tablet RxNorm: 326984 5 Tablet(s) PO daily may repeat on day 8 if needed 04/02/2012 04/01/2012 Inactive ivermectin 3 mg tablet RxNorm: 700327 5 Tablet(s) PO daily may repeat on day 8 if needed 04/02/2012 04/02/2012 Inactive Pneumovax 23 25 mcg/0.5 mL Injection RxNorm: 531797 Milliliter(s) Inj 06/25/2011 06/25/2011 Inactive hydrochlorothiazide 25 mg tablet RxNorm: 094366 1 Tablet(s) PO daily No Start Date Active folic acid 800 mcg tablet RxNorm: 246624 1 Tablet(s) PO daily No Start Date Active Fosamax 70 mg Tab RxNorm: 552053 1 Tablet(s) PO weekly No Start Date 10/06/2017 Inactive melatonin 10 mg tablet RxNorm: 2310754 1 Tablet(s) PO daily No Start Date 10/06/2017 Inactive enalapril maleate 20 mg Tab RxNorm: 166534 1 Tablet(s) PO QHS No Start Date 05/12/2016 Inactive Vitamin D 1,000 unit Cap RxNorm: 972690 1 Capsule(s) PO daily No Start Date 10/06/2017 Inactive triamterine HCTZ 25/37.5 mg RxNorm: 1 PO daily No Start Date 04/12/2012 Inactive sertraline 50 mg Tab RxNorm: 415917 1 Tablet(s) PO daily No Start Date 01/23/2016 Inactive multivitamin Cap RxNorm: 1 Capsule(s) PO daily No Start Date 10/06/2017 Inactive calcium 500 mg Tab RxNorm: 1 Tablet(s) PO daily No Start Date 10/06/2017 Inactive triamterene-hydrochlorothiazide 37.5 mg-25 mg Tab RxNorm: 757089 1 Tablet(s) PO daily No Start Date 04/19/2017 Inactive Lipitor 40 mg Tab RxNorm: 111577 1 Tablet(s) PO daily No Start Date 06/17/2018 Inactive losartan 25 mg tablet RxNorm: 554746 1 Tablet(s) PO daily No Start Date 10/06/2017 Inactive Tylenol PM Extra Strength 25 mg-500 mg Tab RxNorm: 4149181 1 Tablet(s) PO QHS No Start Date 02/06/2013 Inactive Restasis 0.05 % eye drops in a dropperette RxNorm: 736089 ophthalmic No Start Date 07/11/2018 Inactive Estring 2 mg Vaginal RxNorm: 446969 1 VAG q 3 month No Start Date 09/24/2016 Inactive Medication Administered Medication Codes Instructions Start Date Status Pneumovax 23 25 mcg/0.5 mL Injection RxNorm: 374632 Milliliter 06/25/2011 No longer Active Immunizations Vaccine [...] Dates Mixed hyperlipidemia ICD-10: E78.2 ICD-9: 272.2 07/12/2018 [...] 13.2 g/dl 07/12/2018 Cbc With Differential Ord2 Neut% 53.9 % 07/12/2018 Cbc With Differential Ord2 HCT 40.1 % 07/12/2018 Cbc With Differential Ord2 MCV 101.8 fl 07/12/2018 Cbc With Differential Ord2 Lymph% 29.2 % 07/12/2018 Cbc With Differential Ord2 MCH 33.5 pg 07/12/2018 Cbc With Differential Ord2 [place]% 11.2 % 07/12/2018 Cbc With Differential Ord2 [...] 1.59 K/ul 07/12/2018 Cbc With Differential Ord2 [place] ABS# 0.6 K/ul 07/12/2018 Cbc With Differential Ord2 Eos ABS# 0.3 K/ul 07/12/2018 Cbc With Differential Ord2 Baso ABS# 0.1 K/ul 07/12/2018 Lipid Ord30 CHOL 189 mg/dL 07/12/2018 Lipid Ord30 HDL 86.0 mg/dl 07/12/2018 Lipid Ord30 TRIG 47 mg/dL 07/12/2018 Lipid Ord30 LDL 94 mg/dL 07/12/2018 Lipid Ord30 C/HDL 2.2 Ratio 07/12/2018 Comp Metabolic Zph216 NA 138 mEq/L 07/12/2018 Comp Metabolic Oln758 K 4.0 mEq/L 07/12/2018 Comp Metabolic Sju275 CL 103 mEq/L 07/12/2018 Comp Metabolic Dbe026 CO2 25.0 mEq/L 07/12/2018 Comp Metabolic Pza300 ANION GAP 14 07/12/2018 Comp Metabolic Zno169 GLUCOSE 94 mg/dL 07/12/2018 Comp Metabolic Ggo812 Creat 1.0 mg/dL 07/12/2018 Comp Metabolic Yfc693 eGFR 57 ml/min/1.73m2 07/12/2018 Comp Metabolic Sqa880 BUN 24 mg/dL 07/12/2018 Comp Metabolic Lyt853 B/C Ratio 23.8 Ratio 07/12/2018 Comp Metabolic Zls869 CALCIUM 9.2 mg/dL 07/12/2018 Comp Metabolic Rhx999 ALK PHOS 32 U/L 07/12/2018 Comp Metabolic Kak664 AST(SGOT) 21 U/L 07/12/2018 Comp Metabolic Gmf750 ALT(SGPT) 12 U/L 07/12/2018 Comp Metabolic Qbe112 BILI T 0.7 mg/dL 07/12/2018 Comp Metabolic Kgg066 ALBUMIN 4.1 g/dL 07/12/2018 Comp Metabolic Wgz369 TPRO 6.4 g/dL 07/12/2018 Comp Metabolic Ood358 GLOB 2.3 g/dL 07/12/2018 Comp Metabolic Izo105 A/G Ratio 1.8 Ratio 07/12/2018 Comp Metabolic Ihl821 Osmo 279 mOsmo 07/12/2018 Tsh Ord6 TSH (3rd IS) 3.80 uIU/mL 07/12/2018 Comp Metabolic Wvk943 NA 142 mEq/L 10/26/2017 Comp Metabolic Lcz284 K 3.7 mEq/L 10/26/2017 Comp Metabolic Uuy002 CL 103 mEq/L 10/26/2017 Comp Metabolic Tws436 CO2 31.0 mEq/L 10/26/2017 Comp Metabolic Yfl316 ANION GAP 12 10/26/2017 Comp Metabolic Gji053 GLUCOSE 91 mg/dL 10/26/2017 Comp Metabolic Wnl356 Creat 0.9 mg/dL 10/26/2017 Comp Metabolic Fiv818 eGFR 63 ml/min/1.73m2 10/26/2017 Comp Metabolic Uot703 BUN 22 mg/dL 10/26/2017 Comp Metabolic Hfj939 B/C Ratio 23.7 Ratio 10/26/2017 Comp Metabolic Tuk330 CALCIUM 9.3 mg/dL 10/26/2017 Comp Metabolic Evy353 ALK PHOS 44 U/L 10/26/2017 Comp Metabolic Tap265 AST(SGOT) 22 U/L 10/26/2017 Comp Metabolic Zji559 ALT(SGPT) 14 U/L 10/26/2017 Comp Metabolic Zom206 BILI T 0.6 mg/dL 10/26/2017 Comp Metabolic Uif737 ALBUMIN 4.4 g/dL 10/26/2017 Comp Metabolic Qwc541 TPRO 6.5 g/dL 10/26/2017 Comp Metabolic Gfd613 GLOB 2.1 g/dL 10/26/2017 Comp Metabolic Rct158 A/G Ratio 2.1 Ratio 10/26/2017 Comp Metabolic Huk230 Osmo 286 mOsmo 10/26/2017 Lipid Ord30 CHOL [...] unsteadiness 04/13/2012 None Full Exam - General 1995 Constitutional general appearance Overall: well nourished 04/13/2012 None Full Exam - General 1995 Constitutional general appearance Overall: well developed 04/13/2012 None Full Exam - General 1994 Constitutional general appearance Overall: in no acute distress 04/13/2012 None Full Exam - General 1994 Eyes pupils and irises Overall: pupils equal, round, reactive to light and accomodation 04/13/2012 None Full Exam - General 1994 Ears/Nose/Throat otoscopic exam Overall: external auditory canals clear 04/13/2012 None Full Exam - General 1995 Ears/Nose/Throat [...] atraumatic 09/24/2011 None Full Exam - General 1994 Musculoskeletal head and neck Overall: cervical spine benign 09/24/2011 None Full Exam - General 1994 Neurologic gait Overall: no ataxia, no unsteadiness 09/24/2011 None Full Exam - General 1994 Neurologic cranial nerves Overall: crainial nerves 2 - 12 grossly intact 09/24/2011 None Full Exam - General 1994 [...] Procedure Codes Date IMMUNIZATION ADMIN CPT- 4: 42299 07/04/2015 FLU VACC PRSV FREE INC ANTIG Formatting Model/CDA Sections, Assigned to/Carol Leon CPT-4: [id number] 07/04/2015 IMMUNIZATION ADMIN CPT- 4: 77889 05/11/2014 FLU VAC NO PRSV 4 GABRIEL 3 YRS+ CPT-4: 09549 05/11/2014 ZOSTER VACC SC (No charge, patient supplied vaccine) CPT-4: 42477TJ 09/24/2011 Pneumococcal Polysaccharide Vaccine, 23-Valent, Ad CPT-4: 86361 06/25/2011 ADMIN PNEUMOCOCCAL VACCINE SNOMED CT: 63887590 CPT-4: G0009 06/25/2011 Vital Signs Date Vital 07/12/2018 Blood Pressure 1: 140/86 Code: 8480-6 BMI: 25.6 Code: 88584-7 Heart Rate 1: 69 bpm Height: 5'2" SpO2: 99% Weight: 140 lbs 03/08/2018 Blood Pressure 1: 140/74 Code: 8480-6 BMI: 24.5 Code: 30828-9 Heart Rate 1: 70 bpm Height: 5'2" SpO2: 98% Weight: 134 lbs 10/28/2017 Blood Pressure 1: 132/74 Code: 8480-6 BMI: 24.1 Code: 20186-5 Heart Rate 1: 66 bpm Height: 5'2" SpO2: 99% Weight: 132 lbs 10/07/2017 Blood Pressure 1: 184/70 Code: 8480-6 BMI: 24.5 Code: 66667-6 Heart Rate 1: 64 bpm Height: 5'2" SpO2: 99% Weight: 134 lbs 03/26/2017 Blood Pressure 1: 144/84 Code: 8480-6 BMI: 23.0 Code: 15270-4 Heart Rate 1: 72 bpm Height: 5'2" SpO2: 98% Weight: 126 lbs 09/25/2016 Blood Pressure 1: 146/78 Code: 8480-6 BMI: 22.7 Code: 69781-1 Heart Rate 1: 71 bpm Height: 5'2" SpO2: 97% Weight: 124 lbs 01/03/2016 Blood Pressure 1: 160/90 Code: 8480-6 BMI: 24.1 Code: 51704-7 Heart Rate 1: 83 bpm Height: 5'2" SpO2: 97% Weight: 131 lbs 8 oz 07/30/2015 Blood Pressure 1: 145/82 Code: 8480-6 BMI: 25.1 Code: 38136-5 Heart Rate 1: 72 bpm Height: 5'2" SpO2: 98% Weight: 137 lbs 05/11/2014 Blood Pressure 1: 138/88 Code: 8480-6 BMI: 24.9 Code: 43539-6 Heart Rate 1: 84 bpm Height: 5'2" Weight: 136 lbs 02/07/2013 Blood Pressure 1: 102/70 Code: 8480-6 BMI: 25.8 Code: 39297-4 Heart Rate 1: 76 bpm Height: 5'2" [...] 1: 134/76 Code: 8480-6 BMI: 25.2 Code: 61102-1 Heart Rate 1: 72 bpm Height: 5'2" [...] data Encounters Encounter Performer Location Codes Date ([id number]) 35102 EST. PATIENT, LEVEL IV Diagnosis: Essential (primary) hypertension[ICD10: I10] Diagnosis: Mixed hyperlipidemia[ICD10: E78.2] Diagnosis: Major depressive disorder, recurrent, moderate[ICD10: F33.1] April Ugalde MD [facility] CPT-4: 91952 07/12/2018 ([id number]) 73396 EST. PATIENT, LEVEL III Diagnosis: Essential (primary) hypertension[ICD10: I10] KARSTEN Taylor MD CPT-4: 16081 03/08/2018 ([id number]) 46216 EST. PATIENT, LEVEL III Diagnosis: Essential (primary) hypertension[ICD10: I10] KARSTEN Taylor MD CPT-4: 24145 10/28/2017 ([id number]) 14283 EST. PATIENT, LEVEL IV Diagnosis: Essential (primary) hypertension[ICD10: I10] Diagnosis: Mixed hyperlipidemia[ICD10: E78.2] Diagnosis: Atherosclerosis of renal artery[ICD10: I70.1] April Ugalde MD [facility] CPT-4: 79123 10/07/2017 ([id number]) 55558 EST. PATIENT, LEVEL IV Diagnosis: Essential (primary) hypertension[ICD10: I10] Diagnosis: Mixed hyperlipidemia[ICD10: E78.2] April Ugalde MD [facility] CPT- 4: 14657 03/26/2017 ([id number]) PER PM REEVAL EST PAT 65+ YR Diagnosis: Encounter for general adult medical examination without abnormal findings[ICD10: Z00.00] KARSTEN Taylor MD CPT-4: 32709 09/25/2016 ([id number]) 26073 EST. PATIENT, LEVEL IV Diagnosis: Essential (primary) hypertension[ICD10: I10] Diagnosis: Mixed hyperlipidemia[ICD10: E78.2] [facility] CPT- 4: 19159 01/03/2016 ([id number]) PER PM REEVAL EST PAT 65+ YR Diagnosis: Encounter for general adult medical examination without abnormal findings[ICD10: Z00.00] [facility] CPT-4: 91318 07/30/2015 ([id number]) 58611 EST. PATIENT, LEVEL IV Diagnosis: VACCIN FOR INFLUENZA[ICD10: Z23] Diagnosis: ESSENTIAL HYPERTENSION[ICD9: 401.9] Diagnosis: Urinary incontinence[ICD9: 788.30] Diagnosis: HYPERLIPIDEMIA[ICD9: 272.4] April Ugalde MD [facility] CPT-4: 34602 05/11/2014 ([id number]) 82080 EST. PATIENT, LEVEL III Diagnosis: ESSENTIAL HYPERTENSION[SNOMED: 33354416] KARSTEN Taylor MD CPT-4: 19943 02/07/2013 ([id number]) 01635 EST. PATIENT, LEVEL IV Diagnosis: ESSENTIAL HYPERTENSION[SNOMED: 11012242] Diagnosis: HYPERLIPIDEMIA[ICD9: 272.4] Diagnosis: GENERAL OSTEOARTHROSIS[ICD9: 715.00] Diagnosis: Toe pain[ICD9: 729.5] KARSTEN Taylor MD CPT-4: 54049 07/28/2012 ([id number]) 72623 EST. PATIENT, LEVEL IV Diagnosis: ESSENTIAL HYPERTENSION[SNOMED: 95131457] Diagnosis: HYPERLIPIDEMIA[ICD9: 272.4] KARSTEN Taylor MD CPT-4: 80542 04/13/2012 [id number]) 71516 EST. PATIENT, LEVEL IV Diagnosis: ESSENTIAL HYPERTENSION[SNOMED: 49014679] Diagnosis: HYPERLIPIDEMIA[ICD9: 272.4] April Ugalde MD, [facility] CPT-4: 55694 09/24/2011 OFFICE VISIT, NEW - LEVEL 4 Diagnosis: ESSENTIAL HYPERTENSION[SNOMED: 99671972] Diagnosis: HYPERLIPIDEMIA[ICD9: 272.4] Diagnosis: VACCIN STREP PNEUMONIAE[ICD9: V03.82] Diagnosis: Insomnia[ICD9: 780.52] [facility] CPT-4: 52559 06/25/2011 Plan of Care Planned Activity Notes [...] exposure. No change in current medications. 07/12/2018 Patient Education: Patient Medication Summary Completed [...] home. 03/08/2018 Appointment: April Ugalde [facility]Ptel: [phone] [id number] (15 min) Moderate 03/08/2018 Appointment: April Ugalde WPtel: [phone] [id number] (15 min) Moderate 03/08/2018 Patient Education: Patient Medication Summary Completed 03/08/2018 Visit Plan: Hypertension - well controlled - continue with current medications, continue with no added salt diet. Pt has been encouraged to exercise daily. The pt has been advised to call the office if there are any acute concerns about change in blood pressure readings at home. 10/28/2017 Appointment: April Ugalde WPtel: [phone] [id number] (15 min) Moderate 10/28/2017 Patient Education: Patient [...] medications. 10/07/2017 Appointment: April Ugalde WPtel: [phone] [id number] (15 min) Moderate 10/07/2017 Patient Education: Patient Medication Summary Completed 10/07/2017 Appointment: April Ugalde WPtel: [id number] (15 min) Moderate 09/28/2017 Visit Plan: Hypertension [...] medications. 03/26/2017 Appointment: April Ugalde WPtel: [phone] [id number] (15 min) Moderate 03/26/2017 Patient Education: Patient [...] renal functioning. 09/25/2016 Appointment: April Ugalde WPtel: [phone] [facility] [place] (15 min) Moderate 09/25/2016 Patient Education: Patient Medication Summary Completed 09/25/2016 Appointment: April Ugalde WPtel: [phone] [facility] [place] (15 min) Moderate 07/29/2016 Visit Plan: [...] today 05/11/2014 Appointment: April Ugalde WPtel: [phone] [id number] Follow up 05/11/2014 Patient Education: Patient Medication [...] home. 02/07/2013 Appointment: April Ugalde WPtel: [phone] [id number] Follow up 02/07/2013 Patient Education: Patient Medication [...] [place]. 07/28/2012 Appointment: April Ugalde WPtel: [phone] [id number] Other 07/28/2012 Patient Education: Hypertension Completed 07/28/2012 [...] to medications. 04/13/2012 Appointment: April Ugalde WPtel: [facility] Other 04/13/2012 Patient Education: Patient Medication Summary [...] medications. 09/24/2011 Appointment: April Ugalde WPtel: [phone] [id number] [place] Other 09/24/2011 Patient Education: Patient Medication Summary [...] mg. 06/25/2011 Appointment: April Ugalde WPtel: [phone] [facility] [place] New Patient 06/25/2011 Patient Education: Patient [...] on melatonin up to 10 mg. [facility] [facility] - pt [...]
--- OUTSIDE RECORDS SUMMARY | 2019-03-11 18:23 | XMS REPORT | CCD ---
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 07/31/2012 Marital status Unknown 06/25/[address]: 061045881 Never smoker 06/25/[address]: 432007 Currently drinks alcohol 7 weekly 06/25/2011 Has [...] ICD-9: 401.1 ICD-10: I10 Active 01/02/2016 Unknown Atherosclerosis of renal artery ICD-9: 440.1 ICD-10: I70.1 Active 10/07/2017 Unknown Mixed hyperlipidemia ICD- 9: 272.2 ICD-10: E78.2 Active 01/02/2016 Unknown Encounter for general adult medical examination [...] hypertension ICD-9: 401.1 ICD-10: I10 01/02/2016 Active Atherosclerosis of renal artery ICD-9: 440.1 ICD-10: I70.1 10/07/2017 Active Mixed hyperlipidemia ICD- 9: 272.2 ICD-10: E78.2 01/02/2016 Active Encounter for general adult medical examination [...] Fill Instructions Lipitor 40 mg tablet RxNorm: 579614 1 Tablet(s) PO daily 06/18/2018 10/15/2018 Active Trilipix 135 mg capsule,delayed release RxNorm: 636964 Capsule(s) TAKE ONE CAPSULE BY MOUTH AT BEDTIME 05/06/2018 No Stop Date Active sertraline 50 mg tablet RxNorm: 138645 Tablet(s) TAKE ONE TABLET BY MOUTH ONCE DAILY 11/12/2017 11/06/2018 Active Toprol XL 25 mg tablet,extended release RxNorm: 463371 1 Tablet(s) PO daily 11/12/2017 11/06/2018 Active losartan 100 mg tablet RxNorm: 803160 1 Tablet(s) PO daily 10/07/2017 05/04/2018 Inactive Trilipix 135 mg capsule,delayed release RxNorm: 785525 TAKE ONE CAPSULE BY MOUTH AT BEDTIME 09/14/2017 05/05/2018 Inactive sertraline 50 mg tablet RxNorm: 913775 TAKE ONE TABLET BY MOUTH ONCE DAILY 05/12/2017 11/11/2017 Inactive Trilipix 135 mg capsule,delayed release RxNorm: 143019 1 Capsule(s) PO QHS 04/17/2017 07/15/2017 Inactive Trilipix 135 mg capsule,delayed release RxNorm: 972035 1 Capsule(s) PO QHS 04/17/2017 04/16/2017 Inactive Toprol XL 25 mg tablet,extended release RxNorm: 198197 1 Tablet(s) PO daily 04/17/2017 10/13/2017 Inactive Toprol XL 25 mg tablet,extended release RxNorm: 031452 1 Tablet(s) PO daily 04/17/2017 04/16/2017 Inactive enalapril maleate 20 mg tablet RxNorm: 497095 1 Tablet(s) PO QHS 05/13/2016 10/06/2017 Inactive sertraline 50 mg tablet RxNorm: 171737 1 Tablet(s) PO daily 01/24/2016 05/22/2016 Inactive Fosamax 70 mg tablet RxNorm: 407345 1 Tablet(s) PO QW 06/30/2014 06/24/2015 Inactive Fosamax 70 mg tablet RxNorm: 333879 1 Tablet(s) PO QW 06/30/2014 06/29/2014 Inactive ivermectin 3 mg tablet RxNorm: 515579 5 Tablet(s) PO daily may repeat on day 8 if needed 04/02/2012 04/01/2012 Inactive ivermectin 3 mg tablet RxNorm: 342483 5 Tablet(s) PO daily may repeat on day 8 if needed 04/02/2012 04/02/2012 Inactive Pneumovax 23 25 mcg/0.5 mL Injection RxNorm: 987289 Milliliter(s) Inj 06/25/2011 06/25/2011 Inactive hydrochlorothiazide 25 mg tablet RxNorm: 756969 1 Tablet(s) PO daily No Start Date Active folic acid 800 mcg tablet RxNorm: 466777 1 Tablet(s) PO daily No Start Date Active Fosamax 70 mg Tab RxNorm: 108582 1 Tablet(s) PO weekly No Start Date 10/06/2017 Inactive melatonin 10 mg tablet RxNorm: 7043801 1 Tablet(s) PO daily No Start Date 10/06/2017 Inactive enalapril maleate 20 mg Tab RxNorm: 366371 1 Tablet(s) PO QHS No Start Date 05/12/2016 Inactive Vitamin D 1,000 unit Cap RxNorm: 020230 1 Capsule(s) PO daily No Start Date 10/06/2017 Inactive triamterine HCTZ 25/37.5 mg RxNorm: 1 PO daily No Start Date 04/12/2012 Inactive sertraline 50 mg Tab RxNorm: 865298 1 Tablet(s) PO daily No Start Date 01/23/2016 Inactive multivitamin Cap RxNorm: 1 Capsule(s) PO daily No Start Date 10/06/2017 Inactive calcium 500 mg Tab RxNorm: 1 Tablet(s) PO daily No Start Date 10/06/2017 Inactive triamterene-hydrochlorothiazide 37.5 mg-25 mg Tab RxNorm: 860526 1 Tablet(s) PO daily No Start Date 04/19/2017 Inactive Lipitor 40 mg Tab RxNorm: 929179 1 Tablet(s) PO daily No Start Date 06/17/2018 Inactive losartan 25 mg tablet RxNorm: 027321 1 Tablet(s) PO daily No Start Date 10/06/2017 Inactive Tylenol PM Extra Strength 25 mg-500 mg Tab RxNorm: 8833915 1 Tablet(s) PO QHS No Start Date 02/06/2013 Inactive Restasis 0.05 % eye drops in a dropperette RxNorm: 983851 ophthalmic No Start Date 07/11/2018 Inactive Estring 2 mg Vaginal RxNorm: 448081 1 VAG q 3 month No Start Date 09/24/2016 Inactive Medication Administered Medication Codes Instructions Start Date Status Pneumovax 23 25 mcg/0.5 mL Injection RxNorm: 660285 Milliliter 06/25/2011 No longer Active Immunizations Vaccine [...] 06/25/2011 completed Assessments Condition Codes Effective Dates Essential (primary) hypertension ICD-10: I10 ICD-9: 401.1 03/08/2018 Atherosclerosis of renal artery ICD-10: I70.1 ICD-9: 440.1 10/07/2017 Mixed hyperlipidemia ICD-10: E78.2 ICD-9: 272.2 10/07/2017 Encounter for general adult medical examination [...] Reason For Visit Effective Dates Notes hypertension 03/08/2018 hypertension 10/28/2017 hypertension 10/07/2017 hypertension [...] 33.5 pg 07/12/2018 Cbc With Differential Ord2 Deuel% 11.2 % 07/12/2018 Cbc With Differential Ord2 [...] 1.59 K/ul 07/12/2018 Cbc With Differential Ord2 Deuel ABS# 0.6 K/ul 07/12/2018 Cbc With Differential Ord2 Eos ABS# 0.3 K/ul 07/12/2018 Cbc With Differential Ord2 Baso ABS# 0.1 K/ul 07/12/2018 Comp Metabolic Tcn382 NA 142 mEq/L 10/26/2017 Comp Metabolic Dnc306 K 3.7 mEq/L 10/26/2017 Comp Metabolic Kkc430 CL 103 mEq/L 10/26/2017 Comp Metabolic Bfs352 CO2 31.0 mEq/L 10/26/2017 Comp Metabolic Ucb356 ANION GAP 12 10/26/2017 Comp Metabolic Ucu097 GLUCOSE 91 mg/dL 10/26/2017 Comp Metabolic Ray663 Creat 0.9 mg/dL 10/26/2017 Comp Metabolic Cma784 eGFR 63 ml/min/1.73m2 10/26/2017 Comp Metabolic Tbt017 BUN 22 mg/dL 10/26/2017 Comp Metabolic Mck367 B/C Ratio 23.7 Ratio 10/26/2017 Comp Metabolic Lti154 CALCIUM 9.3 mg/dL 10/26/2017 Comp Metabolic Tkw907 ALK PHOS 44 U/L 10/26/2017 Comp Metabolic Qre376 AST(SGOT) 22 U/L 10/26/2017 Comp Metabolic Wfq661 ALT(SGPT) 14 U/L 10/26/2017 Comp Metabolic Pxf021 BILI T 0.6 mg/dL 10/26/2017 Comp Metabolic Xsz096 ALBUMIN 4.4 g/dL 10/26/2017 Comp Metabolic Rot866 TPRO 6.5 g/dL 10/26/2017 Comp Metabolic Npv501 GLOB 2.1 g/dL 10/26/2017 Comp Metabolic Ylj860 A/G Ratio 2.1 Ratio 10/26/2017 Comp Metabolic Ayn949 Osmo 286 mOsmo 10/26/2017 Lipid Ord30 CHOL 182 mg/dL 10/26/2017 Lipid Ord30 HDL 65.0 mg/dl 10/26/2017 Lipid Ord30 TRIG 88 mg/dL 10/26/2017 Lipid Ord30 LDL 99 mg/dL 10/26/2017 Lipid Ord30 C/HDL 2.8 Ratio 10/26/2017 Review of Systems System Result Effective Dates Constitutional No recent illness 03/08/2018 Constitutional No [...] Procedure Codes Date IMMUNIZATION ADMIN CPT- 4: 14600 07/04/2015 FLU VACC PRSV FREE INC ANTIG Formatting Model/CDA Sections, Assigned to/Carol Leon CPT-4: 68640Wamkzaj 07/04/2015 IMMUNIZATION ADMIN CPT- 4: 55937 05/11/2014 FLU VAC NO PRSV 4 GABRIEL 3 YRS+ CPT-4: 40512 05/11/2014 ZOSTER VACC SC (No charge, patient supplied vaccine) CPT-4: 75364FO 09/24/2011 Pneumococcal Polysaccharide Vaccine, 23-Valent, Ad CPT-4: 05561 06/25/2011 ADMIN PNEUMOCOCCAL VACCINE SNOMED CT: 25859188 CPT-4: G0009 06/25/2011 Vital Signs Date Vital 03/08/2018 Blood Pressure 1: 140/74 Code: 8480-6 BMI: 24.5 Code: 78700-6 Heart Rate 1: 70 bpm Height: 5'2" SpO2: 98% Weight: 134 lbs 10/28/2017 Blood Pressure 1: 132/74 Code: 8480-6 BMI: 24.1 Code: 07977-6 Heart Rate 1: 66 bpm Height: 5'2" SpO2: 99% Weight: 132 lbs 10/07/2017 Blood Pressure 1: 184/70 Code: 8480-6 BMI: 24.5 Code: 00320-4 Heart Rate 1: 64 bpm Height: 5'2" SpO2: 99% Weight: 134 lbs 03/26/2017 Blood Pressure 1: 144/84 Code: 8480-6 BMI: 23.0 Code: 27741-9 Heart Rate 1: 72 bpm Height: 5'2" SpO2: 98% Weight: 126 lbs 09/25/2016 Blood Pressure 1: 146/78 Code: 8480-6 BMI: 22.7 Code: 07160-8 Heart Rate 1: 71 bpm Height: 5'2" SpO2: 97% Weight: 124 lbs 01/03/2016 Blood Pressure 1: 160/90 Code: 8480-6 BMI: 24.1 Code: 01596-0 Heart Rate 1: 83 bpm Height: 5'2" SpO2: 97% Weight: 131 lbs 8 oz 07/30/2015 Blood Pressure 1: 145/82 Code: 8480-6 BMI: 25.1 Code: 04239-1 Heart Rate 1: 72 bpm Height: 5'2" SpO2: 98% Weight: 137 lbs 05/11/2014 Blood Pressure 1: 138/88 Code: 8480-6 BMI: 24.9 Code: 28902-1 Heart Rate 1: 84 bpm Height: 5'2" Weight: 136 lbs 02/07/2013 Blood Pressure 1: 102/70 Code: 8480-6 BMI: 25.8 Code: 54808-2 Heart Rate 1: 76 bpm Height: 5'2" [...] 1: 134/76 Code: 8480-6 BMI: 25.2 Code: 56432-8 Heart Rate 1: 72 bpm Height: 5'2" Respiratory Rate: 16 bpm Weight: 138 lbs Functional Status No Functional Status data History of Present Illness Symptom Name Status Result Effective Date Notes hypertension Quality chronic 03/08/2018 None hypertension Quality [...] data Encounters Encounter Performer Location Codes Date ([id number]) 18633 EST. PATIENT, LEVEL III Diagnosis: Essential (primary) hypertension[ICD10: I10] [facility] CPT-4: 37755 03/08/2018 ([id number]) 97000 EST. PATIENT, LEVEL III Diagnosis: Essential (primary) hypertension[ICD10: I10] KARSTEN Taylor MD CPT-4: 36442 10/28/2017 ([id number]) 49828 EST. PATIENT, LEVEL IV Diagnosis: Essential (primary) hypertension[ICD10: I10] Diagnosis: Mixed hyperlipidemia[ICD10: E78.2] Diagnosis: Atherosclerosis of renal artery[ICD10: I70.1] [facility] CPT-4: 22545 10/07/2017 ([id number]) 23854 EST. PATIENT, LEVEL IV Diagnosis: Essential (primary) hypertension[ICD10: I10] Diagnosis: Mixed hyperlipidemia[ICD10: E78.2] April Ugalde MD, [facility] CPT- 4: 05359 03/26/2017 ([id number]) PER PM REEVAL EST PAT 65+ YR Diagnosis: Encounter for general adult medical examination without abnormal findings[ICD10: Z00.00] April Ugalde MD [facility] CPT-4: 33181 09/25/2016 ([id number]) 27179 EST. PATIENT, LEVEL IV Diagnosis: Essential (primary) hypertension[ICD10: I10] Diagnosis: Mixed hyperlipidemia[ICD10: E78.2] April Ugalde MD, [facility] CPT- 4: 57035 01/03/2016 ([id number]) PER PM REEVAL EST PAT 65+ YR Diagnosis: Encounter for general adult medical examination without abnormal findings[ICD10: Z00.00] KARSTEN Taylor MD CPT-4: 26575 07/30/2015 ([id number]) 50989 EST. PATIENT, LEVEL IV Diagnosis: VACCIN FOR INFLUENZA[ICD10: Z23] Diagnosis: ESSENTIAL HYPERTENSION[ICD9: 401.9] Diagnosis: Urinary incontinence[ICD9: 788.30] Diagnosis: HYPERLIPIDEMIA[ICD9: 272.4] [facility] CPT-4: 03559 05/11/2014 ([id number]) 01178 EST. PATIENT, LEVEL III Diagnosis: ESSENTIAL HYPERTENSION[SNOMED: 73585323] [facility] CPT-4: 71976 02/07/2013 [id number] 06019 EST. PATIENT, LEVEL IV Diagnosis: ESSENTIAL HYPERTENSION[SNOMED: 15897359] Diagnosis: HYPERLIPIDEMIA[ICD9: 272.4] Diagnosis: GENERAL OSTEOARTHROSIS[ICD9: 715.00] Diagnosis: Toe pain[ICD9: 729.5] April Ugalde MD, [facility] CPT-4: 01444 07/28/2012 ([id number] 19500 EST. PATIENT, LEVEL IV Diagnosis: ESSENTIAL HYPERTENSION[SNOMED: 32468838] Diagnosis: HYPERLIPIDEMIA[ICD9: 272.4] April Ugalde MD, [facility] CPT-4: 43793 04/13/2012 [id number] 04431 EST. PATIENT, LEVEL IV Diagnosis: ESSENTIAL HYPERTENSION[SNOMED: 75826276] Diagnosis: HYPERLIPIDEMIA[ICD9: 272.4] April Ugalde MD, [facility] CPT-4: 38047 09/24/2011 OFFICE VISIT, NEW - LEVEL 4 Diagnosis: ESSENTIAL HYPERTENSION[SNOMED: 54562656] Diagnosis: HYPERLIPIDEMIA[ICD9: 272.4] Diagnosis: VACCIN STREP PNEUMONIAE[ICD9: V03.82] Diagnosis: Insomnia[ICD9: 780.52] April Ugalde MD, [facility] CPT-4: 40517 06/25/2011 Plan of Care Planned Activity Notes Codes Status Date Visit Plan: Hypertension - well controlled - continue with current medications, continue with no added salt diet. Pt has been encouraged to exercise daily. The pt has been advised to call the office if there are any acute concerns about change in blood pressure readings at home. 03/08/2018 Appointment: [facility] ([facility] min) Moderate 03/08/2018 Appointment: April Ugalde WPtel: [address] [place], [place] [id number] (15 min) Moderate 03/08/2018 Patient Education: Patient [...] home. 10/28/2017 Appointment: April Ugalde WPtel: [phone] [id number] (15 min) Moderate 10/28/2017 Patient Education: Patient [...] medications. 10/07/2017 Appointment: April Ugalde WPtel: [phone] [id number] (15 min) Moderate 10/07/2017 Patient Education: Patient Medication Summary Completed 10/07/2017 Appointment: [facility] [phone] [facility] (15 min) Moderate 09/28/2017 Visit Plan: [...] to medications. 03/26/2017 Appointment: April Ugalde WPtel: [phone] [id number] (15 min) Moderate 03/26/2017 Patient Education: Patient [...] renal functioning. 09/25/2016 Appointment: April Ugalde WPtel: [phone] [id number] [place] (15 min) Moderate 09/25/2016 Patient Education: Patient Medication Summary Completed 09/25/2016 Appointment: [facility]el[facility] [phone] [facility] [place] (15 min) Moderate 07/29/2016 Visit Plan: [...] 05/11/2014 Appointment: [facility] [phone] [facility] [place] Follow up 05/11/2014 Patient Education: [...] at home. 02/07/2013 Appointment: [facility]el[facility] [phone] [facility] [place] Follow up 02/07/2013 Patient Education: [...] Dr. Almazan. 07/28/2012 Appointment: April Ugalde WPtel: [address] [place] [address] Other 07/28/2012 Patient Education: Hypertension Completed 07/28/2012 [...] to medications. 04/13/2012 Appointment: April Ugalde WPtel: [facility] Other 04/13/2012 Patient Education: Patient Medication [...] medications. 09/24/2011 Appointment: April Ugalde WPtel: [phone] [id number] Other 09/24/2011 Patient Education: Patient Medication Summary [...] 06/25/2011 Appointment: [facility]el[facility] [phone] [facility] New Patient 06/25/2011 Patient Education: Patient [...] on melatonin up to 10 mg. [facility] [employer] [facility] - pt [...]
--- OUTSIDE RECORDS SUMMARY | 2019-03-11 18:25 | XMS REPORT | CCD ---
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 Marital status Unknown 06/25/[address]: 319024690 Never smoker 06/25/[address]: 640485 Currently drinks alcohol 7 weekly 06/25/2011 Has [...] Fill Instructions Lipitor 40 mg tablet RxNorm: 574658 1 Tablet(s) PO daily 06/18/2018 10/15/2018 Active Trilipix 135 mg capsule,delayed release RxNorm: 244944 Capsule(s) TAKE ONE CAPSULE BY MOUTH AT BEDTIME 05/06/2018 No Stop Date Active sertraline 50 mg tablet RxNorm: 425137 Tablet(s) TAKE ONE TABLET BY MOUTH ONCE DAILY 11/12/2017 11/06/2018 Active Toprol XL 25 mg tablet,extended release RxNorm: 704599 1 Tablet(s) PO daily 11/12/2017 11/06/2018 Active losartan 100 mg tablet RxNorm: 356440 1 Tablet(s) PO daily 10/07/2017 05/04/2018 Inactive Trilipix 135 mg capsule,delayed release RxNorm: 446226 TAKE ONE CAPSULE BY MOUTH AT BEDTIME 09/14/2017 05/05/2018 Inactive sertraline 50 mg tablet RxNorm: 601690 TAKE ONE TABLET BY MOUTH ONCE DAILY 05/12/2017 11/11/2017 Inactive Trilipix 135 mg capsule,delayed release RxNorm: 130715 1 Capsule(s) PO QHS 04/17/2017 07/15/2017 Inactive Trilipix 135 mg capsule,delayed release RxNorm: 603667 1 Capsule(s) PO QHS 04/17/2017 04/16/2017 Inactive Toprol XL 25 mg tablet,extended release RxNorm: 553529 1 Tablet(s) PO daily 04/17/2017 10/13/2017 Inactive Toprol XL 25 mg tablet,extended release RxNorm: 371114 1 Tablet(s) PO daily 04/17/2017 04/16/2017 Inactive enalapril maleate 20 mg tablet RxNorm: 146847 1 Tablet(s) PO QHS 05/13/2016 10/06/2017 Inactive sertraline 50 mg tablet RxNorm: 660203 1 Tablet(s) PO daily 01/24/2016 05/22/2016 Inactive Fosamax 70 mg tablet RxNorm: 150976 1 Tablet(s) PO QW 06/30/2014 06/24/2015 Inactive Fosamax 70 mg tablet RxNorm: 822048 1 Tablet(s) PO QW 06/30/2014 06/29/2014 Inactive ivermectin 3 mg tablet RxNorm: 910319 5 Tablet(s) PO daily may repeat on day 8 if needed 04/02/2012 04/01/2012 Inactive ivermectin 3 mg tablet RxNorm: 970175 5 Tablet(s) PO daily may repeat on day 8 if needed 04/02/2012 04/02/2012 Inactive Pneumovax 23 25 mcg/0.5 mL Injection RxNorm: 787264 Milliliter(s) Inj 06/25/2011 06/25/2011 Inactive hydrochlorothiazide 25 mg tablet RxNorm: 910701 1 Tablet(s) PO daily No Start Date Active folic acid 800 mcg tablet RxNorm: 169994 1 Tablet(s) PO daily No Start Date Active Restasis 0.05 % eye drops in a dropperette RxNorm: 633225 ophthalmic No Start Date Active Fosamax 70 mg Tab RxNorm: 463019 1 Tablet(s) PO weekly No Start Date 10/06/2017 Inactive melatonin 10 mg tablet RxNorm: 3195172 1 Tablet(s) PO daily No Start Date 10/06/2017 Inactive enalapril maleate 20 mg Tab RxNorm: 957364 1 Tablet(s) PO QHS No Start Date 05/12/2016 Inactive Vitamin D 1,000 unit Cap RxNorm: 214989 1 Capsule(s) PO daily No Start Date 10/06/2017 Inactive triamterine HCTZ 25/37.5 mg RxNorm: 1 PO daily No Start Date 04/12/2012 Inactive sertraline 50 mg Tab RxNorm: 734098 1 Tablet(s) PO daily No Start Date 01/23/2016 Inactive multivitamin Cap RxNorm: 1 Capsule(s) PO daily No Start Date 10/06/2017 Inactive calcium 500 mg Tab RxNorm: 1 Tablet(s) PO daily No Start Date 10/06/2017 Inactive triamterene-hydrochlorothiazide 37.5 mg-25 mg Tab RxNorm: 657370 1 Tablet(s) PO daily No Start Date 04/19/2017 Inactive Lipitor 40 mg Tab RxNorm: 069541 1 Tablet(s) PO daily No Start Date 06/17/2018 Inactive losartan 25 mg tablet RxNorm: 582851 1 Tablet(s) PO daily No Start Date 10/06/2017 Inactive Tylenol PM Extra Strength 25 mg-500 mg Tab RxNorm: 7877415 1 Tablet(s) PO QHS No Start Date 02/06/2013 Inactive Estring 2 mg Vaginal RxNorm: 366682 1 VAG q 3 month No Start Date 09/24/2016 Inactive Medication Administered Medication Codes Instructions Start Date Status Pneumovax 23 25 mcg/0.5 mL Injection RxNorm: 437100 Milliliter 06/25/2011 No longer Active Immunizations Vaccine [...] Observation Code Item Item Code Result Date Comp Metabolic Hvb032 NA 142 mEq/L 10/26/2017 Comp Metabolic Oge103 K 3.7 mEq/L 10/26/2017 Comp Metabolic Ghg053 CL 103 mEq/L 10/26/2017 Comp Metabolic Zmv803 CO2 31.0 mEq/L 10/26/2017 Comp Metabolic Ief231 ANION GAP 12 10/26/2017 Comp Metabolic Eyh694 GLUCOSE 91 mg/dL 10/26/2017 Comp Metabolic Whw747 Creat 0.9 mg/dL 10/26/2017 Comp Metabolic Efc719 eGFR 63 ml/min/1.73m2 10/26/2017 Comp Metabolic Mfj159 BUN 22 mg/dL 10/26/2017 Comp Metabolic Iay503 B/C Ratio 23.7 Ratio 10/26/2017 Comp Metabolic Qce217 CALCIUM 9.3 mg/dL 10/26/2017 Comp Metabolic Foz591 ALK PHOS 44 U/L 10/26/2017 Comp Metabolic Jum900 AST(SGOT) 22 U/L 10/26/2017 Comp Metabolic Gob934 ALT(SGPT) 14 U/L 10/26/2017 Comp Metabolic Sou519 BILI T 0.6 mg/dL 10/26/2017 Comp Metabolic Anp720 ALBUMIN 4.4 g/dL 10/26/2017 Comp Metabolic Dsi474 TPRO 6.5 g/dL 10/26/2017 Comp Metabolic Juo314 GLOB 2.1 g/dL 10/26/2017 Comp Metabolic Tgr823 A/G Ratio 2.1 Ratio 10/26/2017 Comp Metabolic Chf289 Osmo 286 mOsmo 10/26/2017 Lipid Ord30 CHOL [...] clear 05/11/2014 None Full Exam - General 1995 Ears/Nose/Throat oral cavity/pharynx/larynx Overall: no masses 05/11/2014 [...] 04/13/2012 None Full Exam - General 1995 Neurologic cranial nerves Overall: crainial nerves 2 - 12 grossly intact 04/13/2012 None Full Exam - General 1995 Psychiatric orientation/consciousness Overall: oriented to person, place and time 04/13/2012 None Full Exam - General 1995 Psychiatric [...] retractions 09/24/2011 None Full Exam - General 1995 Respiratory respiratory effort/rhythm Overall: normal rate 09/24/2011 [...] Procedure Codes Date IMMUNIZATION ADMIN CPT- 4: 82602 07/04/2015 FLU VACC PRSV FREE INC ANTIG Formatting Model/CDA Sections, Assigned to/Carol Leon CPT-4: [id number] 07/04/2015 IMMUNIZATION ADMIN CPT- 4: 93485 05/11/2014 FLU VAC NO PRSV 4 GABRIEL 3 YRS+ CPT-4: 81079 05/11/2014 ZOSTER VACC SC (No charge, patient supplied vaccine) CPT-4: 17079PD 09/24/2011 Pneumococcal Polysaccharide Vaccine, 23-Valent, Ad CPT-4: 16555 06/25/2011 ADMIN PNEUMOCOCCAL VACCINE SNOMED CT: 01223177 CPT-4: G0009 06/25/2011 Vital Signs Date Vital 03/08/2018 Blood Pressure 1: 140/74 Code: 8480-6 BMI: 24.5 Code: 62028-3 Heart Rate 1: 70 bpm Height: 5'2" SpO2: 98% Weight: 134 lbs 10/28/2017 Blood Pressure 1: 132/74 Code: 8480-6 BMI: 24.1 Code: 10622-5 Heart Rate 1: 66 bpm Height: 5'2" SpO2: 99% Weight: 132 lbs 10/07/2017 Blood Pressure 1: 184/70 Code: 8480-6 BMI: 24.5 Code: 26087-1 Heart Rate 1: 64 bpm Height: 5'2" SpO2: 99% Weight: 134 lbs 03/26/2017 Blood Pressure 1: 144/84 Code: 8480-6 BMI: 23.0 Code: 13987-9 Heart Rate 1: 72 bpm Height: 5'2" SpO2: 98% Weight: 126 lbs 09/25/2016 Blood Pressure 1: 146/78 Code: 8480-6 BMI: 22.7 Code: 24885-8 Heart Rate 1: 71 bpm Height: 5'2" SpO2: 97% Weight: 124 lbs 01/03/2016 Blood Pressure 1: 160/90 Code: 8480-6 BMI: 24.1 Code: 65258-1 Heart Rate 1: 83 bpm Height: 5'2" SpO2: 97% Weight: 131 lbs 8 oz 07/30/2015 Blood Pressure 1: 145/82 Code: 8480-6 BMI: 25.1 Code: 92618-8 Heart Rate 1: 72 bpm Height: 5'2" SpO2: 98% Weight: 137 lbs 05/11/2014 Blood Pressure 1: 138/88 Code: 8480-6 BMI: 24.9 Code: 45368-7 Heart Rate 1: 84 bpm Height: 5'2" Weight: 136 lbs 02/07/2013 Blood Pressure 1: 102/70 Code: 8480-6 BMI: 25.8 Code: 84382-3 Heart Rate 1: 76 bpm Height: 5'2" [...] 1: 134/76 Code: 8480-6 BMI: 25.2 Code: 81431-2 Heart Rate 1: 72 bpm Height: 5'2" [...] data Encounters Encounter Performer Location Codes Date ([id number]) 23213 EST. PATIENT, LEVEL III Diagnosis: Essential (primary) hypertension[ICD10: I10] April Ugalde MD, [facility] CPT-4: 38738 03/08/2018 ([id number]) 06245 EST. PATIENT, LEVEL III Diagnosis: Essential (primary) hypertension[ICD10: I10] KARSTEN Taylor MD CPT-4: 54845 10/28/2017 ([id number]) 43244 EST. PATIENT, LEVEL IV Diagnosis: Essential (primary) hypertension[ICD10: I10] Diagnosis: Mixed hyperlipidemia[ICD10: E78.2] Diagnosis: Atherosclerosis of renal artery[ICD10: I70.1] [facility] CPT-4: 09181 10/07/2017 ([id number]) 90596 EST. PATIENT, LEVEL IV Diagnosis: Essential (primary) hypertension[ICD10: I10] Diagnosis: Mixed hyperlipidemia[ICD10: E78.2] [facility] CPT- 4: 89830 03/26/2017 ([id number]) PER PM REEVAL EST PAT 65+ YR Diagnosis: Encounter for general adult medical examination without abnormal findings[ICD10: Z00.00] [facility] CPT-4: 44533 09/25/2016 ([id number]) 45867 EST. PATIENT, LEVEL IV Diagnosis: Essential (primary) hypertension[ICD10: I10] Diagnosis: Mixed hyperlipidemia[ICD10: E78.2] [facility] CPT- 4: 75307 01/03/2016 ([id number]) PER PM REEVAL EST PAT 65+ YR Diagnosis: Encounter for general adult medical examination without abnormal findings[ICD10: Z00.00] KARSTEN Taylor MD CPT-4: 21528 07/30/2015 ([id number]) 20066 EST. PATIENT, LEVEL IV Diagnosis: VACCIN FOR INFLUENZA[ICD10: Z23] Diagnosis: ESSENTIAL HYPERTENSION[ICD9: 401.9] Diagnosis: Urinary incontinence[ICD9: 788.30] Diagnosis: HYPERLIPIDEMIA[ICD9: 272.4] KARSTEN Taylor MD CPT-4: 47442 05/11/2014 ([id number]) 88614 EST. PATIENT, LEVEL III Diagnosis: ESSENTIAL HYPERTENSION[SNOMED: 77200917] KARSTEN Taylor MD CPT-4: 57287 02/07/2013 ([id number]) 20458 EST. PATIENT, LEVEL IV Diagnosis: ESSENTIAL HYPERTENSION[SNOMED: 67961734] Diagnosis: HYPERLIPIDEMIA[ICD9: 272.4] Diagnosis: GENERAL OSTEOARTHROSIS[ICD9: 715.00] Diagnosis: Toe pain[ICD9: 729.5] KARSTEN Taylor MD CPT-4: 12171 07/28/2012 ([id number]) 82558 EST. PATIENT, LEVEL IV Diagnosis: ESSENTIAL HYPERTENSION[SNOMED: 37345422] Diagnosis: HYPERLIPIDEMIA[ICD9: 272.4] KARSTEN Taylor MD CPT-4: 02053 04/13/2012 ([id number]) 25376 EST. PATIENT, LEVEL IV Diagnosis: ESSENTIAL HYPERTENSION[SNOMED: 02519569] Diagnosis: HYPERLIPIDEMIA[ICD9: 272.4] April Ugalde MD [facility] CPT-4: 65918 09/24/2011 OFFICE VISIT, NEW - LEVEL 4 Diagnosis: ESSENTIAL HYPERTENSION[SNOMED: 25745990] Diagnosis: HYPERLIPIDEMIA[ICD9: 272.4] Diagnosis: VACCIN STREP PNEUMONIAE[ICD9: V03.82] Diagnosis: Insomnia[ICD9: 780.52] [facility] CPT-4: 39791 06/25/2011 Plan of Care Planned Activity Notes Codes Status Date Visit Plan: Hypertension - well controlled - continue with current medications, continue with no added salt diet. Pt has been encouraged to exercise daily. The pt has been advised to call the office if there are any acute concerns about change in blood pressure readings at home. 03/08/2018 Appointment: April Ugalde WPtel: [phone] [facility] [place] (15 min) Moderate 03/08/2018 Appointment: [id number] ([facility] min) Moderate 03/08/2018 Patient Education: Patient Medication Summary Completed 03/08/2018 Visit Plan: Hypertension - well controlled - continue with current medications, continue with no added salt diet. Pt has been encouraged to exercise daily. The pt has been advised to call the office if there are any acute concerns about change in blood pressure readings at home. 10/28/2017 Appointment: April Ugalde WPtel: [phone] [facility] (15 min) Moderate 10/28/2017 Patient Education: Patient [...] to medications. 10/07/2017 Appointment: April Ugalde [phone] [id number] (15 min) Moderate 10/07/2017 Patient Education: Patient Medication Summary Completed 10/07/2017 Appointment: April Ugalde WPtel: [phone] [facility] (15 min) Moderate 09/28/2017 Visit Plan: Hypertension [...] to medications. 03/26/2017 Appointment: April Ugalde WPtel: [phone] [facility] (15 min) Moderate 03/26/2017 Patient Education: Patient [...] renal functioning. 09/25/2016 Appointment: April Ugalde WPtel: [facility] [place] (15 min) Moderate 09/25/2016 Patient Education: Patient Medication Summary Completed 09/25/2016 Appointment: April Ugalde WPtel: [phone] [facility] (15 min) Moderate 07/29/2016 Visit Plan: Hypertension [...] shot today 05/11/2014 Appointment: April Ugalde WPtel: [address] [place], [place] [id number] Follow up 05/11/2014 Patient Education: Patient Medication [...] home. 02/07/2013 Appointment: [facility] Ugalde [id number] Follow up 02/07/2013 Patient Education: Patient Medication [...] Ugalde [facility]el[phone] [facility] [facility] 07/28/2012 Patient Education: Hypertension Completed 07/28/2012 [...] liver response to medications. 04/13/2012 Appointment: April Ugadle WPtel: [phone] [facility] Other 04/13/2012 Patient Education: Patient Medication Summary [...] medications. 09/24/2011 Appointment: April Ugalde WPtel: [phone] [facility] Other 09/24/2011 Patient Education: Patient Medication Summary [...] mg. 06/25/2011 Appointment: April Ugalde [id number] New Patient 06/25/2011 Patient Education: Patient Medication [...] start on melatonin up to 10 mg. [employer] [facility] [employer] - pt [...]
--- OUTSIDE RECORDS SUMMARY | 2019-03-11 18:26 | XMS REPORT | CCD ---
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 Unknown Has never used illegal drugs 06/25/2011 Allergies, Adverse Reactions, Alerts Allergies, Adverse Reactions, Alerts data not found Past Medical History Illness Codes Condition Status Onset Date Resolved Date Essential (primary) hypertension ICD-9: 401.1 ICD-10: I10 Active 01/02/2016 Unknown Mixed hyperlipidemia ICD- 9: 272.2 ICD-10: [...] hypertension ICD-9: 401.1 ICD-10: I10 01/02/2016 Active Mixed hyperlipidemia ICD- 9: 272.2 ICD-10: [...] Start Date Stop Date Status Fill Instructions Trilipix 135 mg capsule,delayed release RxNorm: 565375 TAKE ONE CAPSULE BY MOUTH AT BEDTIME 09/14/2017 No Stop Date Active sertraline 50 mg tablet RxNorm: 485525 TAKE ONE TABLET BY MOUTH ONCE DAILY 05/12/2017 12/07/2017 Active Toprol XL 25 mg tablet,extended release RxNorm: 690653 1 Tablet(s) PO daily 04/17/2017 10/13/2017 Active Trilipix 135 mg capsule,delayed release RxNorm: 272727 1 Capsule(s) PO QHS 04/17/2017 07/15/2017 Inactive Trilipix 135 mg capsule,delayed release RxNorm: 380570 1 Capsule(s) PO QHS 04/17/2017 04/16/2017 Inactive Toprol XL 25 mg tablet,extended release RxNorm: 386926 1 Tablet(s) PO daily 04/17/2017 04/16/2017 Inactive enalapril maleate 20 mg tablet RxNorm: 965698 1 Tablet(s) PO QHS 05/13/2016 11/08/2016 Inactive sertraline 50 mg tablet RxNorm: 271842 1 Tablet(s) PO daily 01/24/2016 05/22/2016 Inactive Fosamax 70 mg tablet RxNorm: 106930 1 Tablet(s) PO QW 06/30/2014 06/24/2015 Inactive Fosamax 70 mg tablet RxNorm: 434365 1 Tablet(s) PO QW 06/30/2014 06/29/2014 Inactive ivermectin 3 mg tablet RxNorm: 285287 5 Tablet(s) PO daily may repeat on day 8 if needed 04/02/2012 04/01/2012 Inactive ivermectin 3 mg tablet RxNorm: 890552 5 Tablet(s) PO daily may repeat on day 8 if needed 04/02/2012 04/02/2012 Inactive Pneumovax 23 25 mcg/0.5 mL Injection RxNorm: 877900 Milliliter(s) Inj 06/25/2011 06/25/2011 Inactive Fosamax 70 mg Tab RxNorm: 448979 1 Tablet(s) PO weekly No Start Date Active melatonin 10 mg tablet RxNorm: 5305041 1 Tablet(s) PO daily No Start Date Active Vitamin D 1,000 unit Cap RxNorm: 459822 1 Capsule(s) PO daily No Start Date Active multivitamin Cap RxNorm: 1 Capsule(s) PO daily No Start Date Active calcium 500 mg Tab RxNorm: 1 Tablet(s) PO daily No Start Date Active folic acid 800 mcg tablet RxNorm: 245609 1 Tablet(s) PO daily No Start Date Active Lipitor 40 mg Tab RxNorm: 861988 1 Tablet(s) PO daily No Start Date Active Restasis 0.05 % eye drops in a dropperette RxNorm: 200349 ophthalmic No Start Date Active enalapril maleate 20 mg Tab RxNorm: 847808 1 Tablet(s) PO QHS No Start Date 05/12/2016 Inactive triamterine HCTZ 25/37.5 mg RxNorm: 1 PO daily No Start Date 04/12/2012 Inactive sertraline 50 mg Tab RxNorm: 741917 1 Tablet(s) PO daily No Start Date 01/23/2016 Inactive triamterene-hydrochlorothiazide 37.5 mg-25 mg Tab RxNorm: 425751 1 Tablet(s) PO daily No Start Date 04/19/2017 Inactive Tylenol PM Extra Strength 25 mg-500 mg Tab RxNorm: 8063654 1 Tablet(s) PO QHS No Start Date 02/06/2013 Inactive Estring 2 mg Vaginal RxNorm: 442265 1 VAG q 3 month No Start Date 09/24/2016 Inactive Medication Administered Medication Codes Instructions Start Date Status Pneumovax 23 25 mcg/0.5 mL Injection RxNorm: 641064 Milliliter 06/25/2011 No longer Active Immunizations Vaccine Codes Date Status Influenza CVX: 141 05/12/2017 completed Pneumococcal CVX: 133 06/19/2016 completed Zoster CVX: 121 03/05/2016 completed Influenza CVX: 141 07/04/2015 completed Influenza CVX: 141 05/11/2014 completed Influenza CVX: 141 06/07/2013 completed Influenza CVX: 141 07/28/2012 completed Zoster CVX: 121 09/24/2011 completed Pneumococcal (Adult) CVX: 33 06/25/2011 completed Assessments Condition Codes Effective Dates Mixed hyperlipidemia ICD-10: E78.2 ICD-9: 272.2 03/26/2017 Essential (primary) hypertension ICD-10: I10 ICD-9: 401.1 03/26/2017 Encounter for general adult medical examination without abnormal findings ICD-10: Z00.00 ICD-9: V70.0 09/25/2016 Essential (primary) hypertension ICD-10: I10 ICD-9: 401.9 07/30/2015 VACCIN FOR INFLUENZA ICD-10: Z23 ICD-9: V04.81 07/04/2015 HYPERLIPIDEMIA ICD-9: 272.4 05/11/2014 Urinary incontinence ICD-9: 788.30 05/11/2014 ESSENTIAL HYPERTENSION ICD-9: 401.9 05/11/2014 GENERAL OSTEOARTHROSIS ICD-9: 715.00 07/28/2012 Toe pain ICD-9: 729.5 07/28/2012 Insomnia ICD-9: 780.52 06/25/2011 VACCIN STREP PNEUMONIAE ICD-9: V03.82 06/25/2011 Reason For Visit Reason For Visit Effective Dates Notes hypertension 03/26/2017 hypertension 09/25/2016 hypertension 01/03/2016 hypertension 07/30/2015 vaccination against influenza 07/04/2015 hypertension 05/11/2014 hypertension 02/07/2013 hypertension 07/28/2012 hypertension 04/13/2012 hypertension 09/24/2011 hypertension 06/25/2011 Results No Results data Review of Systems System Result Effective Dates Constitutional No recent illness 03/26/2017 Constitutional No [...] tenderness 05/11/2014 None Full Exam - General 1995 Abdomen [...] Procedure Codes Date IMMUNIZATION ADMIN CPT- 4: 16296 07/04/2015 FLU VACC PRSV FREE INC ANTIG Formatting Model/CDA Sections, Assigned to/Carol Leon CPT-4: [id number] 07/04/2015 IMMUNIZATION ADMIN CPT- 4: 95411 05/11/2014 FLU VAC NO PRSV 4 GABRIEL 3 YRS+ CPT-4: 89589 05/11/2014 ZOSTER VACC SC (No charge, patient supplied vaccine) CPT-4: 02511UN 09/24/2011 Pneumococcal Polysaccharide Vaccine, 23-Valent, Ad CPT-4: 32063 06/25/2011 ADMIN PNEUMOCOCCAL VACCINE SNOMED CT: 54532499 CPT-4: G0009 06/25/2011 Vital Signs Date Vital 03/26/2017 Blood Pressure 1: 144/84 Code: 8480-6 BMI: 23.0 Code: 76327-7 Heart Rate 1: 72 bpm Height: 5'2" SpO2: 98% Weight: 126 lbs 09/25/2016 Blood Pressure 1: 146/78 Code: 8480-6 BMI: 22.7 Code: 16312-7 Heart Rate 1: 71 bpm Height: 5'2" SpO2: 97% Weight: 124 lbs 01/03/2016 Blood Pressure 1: 160/90 Code: 8480-6 BMI: 24.1 Code: 49251-6 Heart Rate 1: 83 bpm Height: 5'2" SpO2: 97% Weight: 131 lbs 8 oz 07/30/2015 Blood Pressure 1: 145/82 Code: 8480-6 BMI: 25.1 Code: 59780-9 Heart Rate 1: 72 bpm Height: 5'2" SpO2: 98% Weight: 137 lbs 05/11/2014 Blood Pressure 1: 138/88 Code: 8480-6 BMI: 24.9 Code: 03876-9 Heart Rate 1: 84 bpm Height: 5'2" Weight: 136 lbs 02/07/2013 Blood Pressure 1: 102/70 Code: 8480-6 BMI: 25.8 Code: 03629-2 Heart Rate 1: 76 bpm Height: 5'2" [...] 1: 134/76 Code: 8480-6 BMI: 25.2 Code: 12074-8 Heart Rate 1: 72 bpm Height: 5'2" Respiratory Rate: 16 bpm Weight: 138 lbs Functional Status No Functional Status data History of Present Illness Symptom Name Status Result Effective Date Notes hypertension Quality chronic 03/26/2017 None hypertension Onset [...] data Encounters Encounter Performer Location Codes Date ([id number]) 73087 EST. PATIENT, LEVEL IV Diagnosis: Essential (primary) hypertension[ICD10: I10] Diagnosis: Mixed hyperlipidemia[ICD10: E78.2] [facility] CPT- 4: 76751 03/26/2017 ([id number]) PER PM REEVAL EST PAT 65+ YR Diagnosis: Encounter for general adult medical examination without abnormal findings[ICD10: Z00.00] KARSTEN Taylor MD CPT-4: 02141 09/25/2016 ([id number]) 21839 EST. PATIENT, LEVEL IV Diagnosis: Essential (primary) hypertension[ICD10: I10] Diagnosis: Mixed hyperlipidemia[ICD10: E78.2] KARSTEN Taylor MD CPT- 4: 52512 01/03/2016 ([id number]) PER PM REEVAL EST PAT 65+ YR Diagnosis: Encounter for general adult medical examination without abnormal findings[ICD10: Z00.00] [facility] CPT-4: 59250 07/30/2015 ([id number]) 51122 EST. PATIENT, LEVEL IV Diagnosis: VACCIN FOR INFLUENZA[ICD10: Z23] Diagnosis: ESSENTIAL HYPERTENSION[ICD9: 401.9] Diagnosis: Urinary incontinence[ICD9: 788.30] Diagnosis: HYPERLIPIDEMIA[ICD9: 272.4] [facility] CPT-4: 60537 05/11/2014 ([id number]) 52241 EST. PATIENT, LEVEL III Diagnosis: ESSENTIAL HYPERTENSION[SNOMED: 91722567] KARSTEN Taylor MD CPT-4: 48998 02/07/2013 ([id number]) 68931 EST. PATIENT, LEVEL IV Diagnosis: ESSENTIAL HYPERTENSION[SNOMED: 01078893] Diagnosis: HYPERLIPIDEMIA[ICD9: 272.4] Diagnosis: GENERAL OSTEOARTHROSIS[ICD9: 715.00] Diagnosis: Toe pain[ICD9: 729.5] [facility] CPT-4: 38491 07/28/2012 ([id number]) 57909 EST. PATIENT, LEVEL IV Diagnosis: ESSENTIAL HYPERTENSION[SNOMED: 95675270] Diagnosis: HYPERLIPIDEMIA[ICD9: 272.4] [facility] CPT-4: 22835 04/13/2012 ([id number]) 88298 EST. PATIENT, LEVEL IV Diagnosis: ESSENTIAL HYPERTENSION[SNOMED: 23558581] Diagnosis: HYPERLIPIDEMIA[ICD9: 272.4] [facility] CPT-4: 30121 09/24/2011 OFFICE VISIT, NEW - LEVEL 4 Diagnosis: ESSENTIAL HYPERTENSION[SNOMED: 34542057] Diagnosis: HYPERLIPIDEMIA[ICD9: 272.4] Diagnosis: VACCIN STREP PNEUMONIAE[ICD9: V03.82] Diagnosis: Insomnia[ICD9: 780.52] [facility] CPT-4: 68868 06/25/2011 Plan of Care Planned Activity Notes [...] to medications. 03/26/2017 Appointment: April Ugalde [facility] [place] (15 min) Moderate 03/26/2017 Patient Education: Patient [...] functioning. 09/25/2016 Appointment: April [facility]galde [facility]Ptel[facility] [phone] [facility] [place] (15 min) Moderate 09/25/2016 Patient Education: Patient Medication Summary Completed 09/25/2016 Appointment: [facility]galde [facility]el[facility] [phone] [facility] (15 min) Moderate 07/29/2016 Visit Plan: Hypertension [...] today 05/11/2014 Appointment: [facility]galde [facility]Ptel[facility] [phone] [facility] Follow up 05/11/2014 Patient Education: Patient [...] home. 02/07/2013 Appointment: April Ugalde WPtel: [phone] [facility] Follow up 02/07/2013 Patient Education: Patient Medication [...] Dr. Almazan. 07/28/2012 Appointment: April Ugalde [facility]Ptel[facility] [phone] [facility] Other 07/28/2012 Patient Education: Hypertension Completed 07/28/2012 [...] medications. 04/13/2012 Appointment: April Ugalde WPtel: [phone] Other 04/13/2012 Patient Education: Patient Medication [...] medications. 09/24/2011 Appointment: April Ugalde WPtel: [phone] Other 09/24/2011 Patient Education: Patient Medication Summary [...] 10 mg. 06/25/2011 Appointment: April Ugalde WPtel: [phone] [facility] New Patient 06/25/2011 Patient Education: Patient [...] on melatonin up to 10 mg. [facility] . [facility] - pt was counseled [...]
--- OUTSIDE RECORDS SUMMARY | 2019-03-11 18:27 | XMS REPORT | CCD ---
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 Unknown Has never used illegal drugs 06/25/2011 Allergies, Adverse Reactions, Alerts Allergies, Adverse Reactions, Alerts data not found Past Medical History Illness Codes Condition Status Onset Date Resolved Date Atherosclerosis of renal artery ICD-9: 440.1 ICD-10: I70.1 Active 10/07/2017 Unknown Essential (primary) hypertension ICD-9: 401.1 ICD-10: [...] Problems Condition Codes Effective Dates Condition Status Atherosclerosis of renal artery ICD-9: 440.1 ICD-10: I70.1 10/07/2017 Active Essential (primary) hypertension ICD-9: 401.1 ICD-10: [...] Start Date Stop Date Status Fill Instructions losartan 100 mg tablet RxNorm: 428333 1 Tablet(s) PO daily 10/07/2017 05/04/2018 Active Trilipix 135 mg capsule,delayed release RxNorm: 820608 TAKE ONE CAPSULE BY MOUTH AT BEDTIME 09/14/2017 No Stop Date Active sertraline 50 mg tablet RxNorm: 858319 TAKE ONE TABLET BY MOUTH ONCE DAILY 05/12/2017 12/07/2017 Active Toprol XL 25 mg tablet,extended release RxNorm: 582853 1 Tablet(s) PO daily 04/17/2017 10/13/2017 Active Trilipix 135 mg capsule,delayed release RxNorm: 959687 1 Capsule(s) PO QHS 04/17/2017 07/15/2017 Inactive Trilipix 135 mg capsule,delayed release RxNorm: 537646 1 Capsule(s) PO QHS 04/17/2017 04/16/2017 Inactive Toprol XL 25 mg tablet,extended release RxNorm: 871638 1 Tablet(s) PO daily 04/17/2017 04/16/2017 Inactive enalapril maleate 20 mg tablet RxNorm: 007153 1 Tablet(s) PO QHS 05/13/2016 10/06/2017 Inactive sertraline 50 mg tablet RxNorm: 530792 1 Tablet(s) PO daily 01/24/2016 05/22/2016 Inactive Fosamax 70 mg tablet RxNorm: 803557 1 Tablet(s) PO QW 06/30/2014 06/24/2015 Inactive Fosamax 70 mg tablet RxNorm: 191806 1 Tablet(s) PO QW 06/30/2014 06/29/2014 Inactive ivermectin 3 mg tablet RxNorm: 962290 5 Tablet(s) PO daily may repeat on day 8 if needed 04/02/2012 04/01/2012 Inactive ivermectin 3 mg tablet RxNorm: 764244 5 Tablet(s) PO daily may repeat on day 8 if needed 04/02/2012 04/02/2012 Inactive Pneumovax 23 25 mcg/0.5 mL Injection RxNorm: 703650 Milliliter(s) Inj 06/25/2011 06/25/2011 Inactive folic acid 800 mcg tablet RxNorm: 676624 1 Tablet(s) PO daily No Start Date Active Lipitor 40 mg Tab RxNorm: 540085 1 Tablet(s) PO daily No Start Date Active Restasis 0.05 % eye drops in a dropperette RxNorm: 495375 ophthalmic No Start Date Active Fosamax 70 mg Tab RxNorm: 792179 1 Tablet(s) PO weekly No Start Date 10/06/2017 Inactive melatonin 10 mg tablet RxNorm: 7289674 1 Tablet(s) PO daily No Start Date 10/06/2017 Inactive enalapril maleate 20 mg Tab RxNorm: 770683 1 Tablet(s) PO QHS No Start Date 05/12/2016 Inactive Vitamin D 1,000 unit Cap RxNorm: 812041 1 Capsule(s) PO daily No Start Date 10/06/2017 Inactive triamterine HCTZ 25/37.5 mg RxNorm: 1 PO daily No Start Date 04/12/2012 Inactive sertraline 50 mg Tab RxNorm: 792958 1 Tablet(s) PO daily No Start Date 01/23/2016 Inactive multivitamin Cap RxNorm: 1 Capsule(s) PO daily No Start Date 10/06/2017 Inactive calcium 500 mg Tab RxNorm: 1 Tablet(s) PO daily No Start Date 10/06/2017 Inactive triamterene-hydrochlorothiazide 37.5 mg-25 mg Tab RxNorm: 431641 1 Tablet(s) PO daily No Start Date 04/19/2017 Inactive losartan 25 mg tablet RxNorm: 232699 1 Tablet(s) PO daily No Start Date 10/06/2017 Inactive Tylenol PM Extra Strength 25 mg-500 mg Tab RxNorm: 5733958 1 Tablet(s) PO QHS No Start Date 02/06/2013 Inactive Estring 2 mg Vaginal RxNorm: 618706 1 VAG q 3 month No Start Date 09/24/2016 Inactive Medication Administered Medication Codes Instructions Start Date Status Pneumovax 23 25 mcg/0.5 mL Injection RxNorm: 928712 Milliliter 06/25/2011 No longer Active Immunizations Vaccine Codes Date Status Influenza CVX: 141 05/12/2017 completed Pneumococcal CVX: 133 06/19/2016 completed Zoster CVX: 121 03/05/2016 completed Influenza CVX: 141 07/04/2015 completed Influenza CVX: 141 05/11/2014 completed Influenza CVX: 141 06/07/2013 completed Influenza CVX: 141 07/28/2012 completed Zoster CVX: 121 09/24/2011 completed Pneumococcal (Adult) CVX: 33 06/25/2011 completed Assessments Condition Codes Effective Dates Atherosclerosis of renal artery ICD-10: I70.1 ICD-9: 440.1 10/07/2017 Mixed hyperlipidemia ICD-10: E78.2 ICD-9: 272.2 10/07/2017 Essential (primary) hypertension ICD-10: I10 ICD-9: 401.1 10/07/2017 Encounter for general adult medical examination [...] Reason For Visit Effective Dates Notes hypertension 10/07/2017 hypertension 03/26/2017 hypertension 09/25/2016 hypertension 01/03/2016 hypertension 07/30/2015 vaccination against influenza 07/04/2015 hypertension 05/11/2014 hypertension 02/07/2013 hypertension 07/28/2012 hypertension 04/13/2012 hypertension 09/24/2011 hypertension 06/25/2011 Results No Results data Review of Systems System Result Effective Dates Constitutional No recent illness 10/07/2017 Constitutional No [...] clear 06/25/2011 None Full Exam - General 1995 Ears/Nose/Throat [...] Procedure Codes Date IMMUNIZATION ADMIN CPT- 4: 96448 07/04/2015 FLU VACC PRSV FREE INC ANTIG Formatting Model/CDA Sections, Assigned to/Carol Leon CPT-4: 98329Lycxhgz 07/04/2015 IMMUNIZATION ADMIN CPT- 4: 91537 05/11/2014 FLU VAC NO PRSV 4 GABRIEL 3 YRS+ CPT-4: 47119 05/11/2014 ZOSTER VACC SC (No charge, patient supplied vaccine) CPT-4: 08045RK 09/24/2011 Pneumococcal Polysaccharide Vaccine, 23-Valent, Ad CPT-4: 67451 06/25/2011 ADMIN PNEUMOCOCCAL VACCINE SNOMED CT: 51579362 CPT-4: G0009 06/25/2011 Vital Signs Date Vital 10/07/2017 Blood Pressure 1: 184/70 Code: 8480-6 BMI: 24.5 Code: 40117-8 Heart Rate 1: 64 bpm Height: 5'2" SpO2: 99% Weight: 134 lbs 03/26/2017 Blood Pressure 1: 144/84 Code: 8480-6 BMI: 23.0 Code: 11677-6 Heart Rate 1: 72 bpm Height: 5'2" SpO2: 98% Weight: 126 lbs 09/25/2016 Blood Pressure 1: 146/78 Code: 8480-6 BMI: 22.7 Code: 49201-9 Heart Rate 1: 71 bpm Height: 5'2" SpO2: 97% Weight: 124 lbs 01/03/2016 Blood Pressure 1: 160/90 Code: 8480-6 BMI: 24.1 Code: 95365-1 Heart Rate 1: 83 bpm Height: 5'2" SpO2: 97% Weight: 131 lbs 8 oz 07/30/2015 Blood Pressure 1: 145/82 Code: 8480-6 BMI: 25.1 Code: 60970-1 Heart Rate 1: 72 bpm Height: 5'2" SpO2: 98% Weight: 137 lbs 05/11/2014 Blood Pressure 1: 138/88 Code: 8480-6 BMI: 24.9 Code: 49095-9 Heart Rate 1: 84 bpm Height: 5'2" Weight: 136 lbs 02/07/2013 Blood Pressure 1: 102/70 Code: 8480-6 BMI: 25.8 Code: 81966-3 Heart Rate 1: 76 bpm Height: 5'2" [...] 1: 134/76 Code: 8480-6 BMI: 25.2 Code: 48202-7 Heart Rate 1: 72 bpm Height: 5'2" Respiratory Rate: 16 bpm Weight: 138 lbs Functional Status No Functional Status data History of Present Illness Symptom Name Status Result Effective Date Notes hypertension Quality chronic 10/07/2017 None hypertension Onset [...] urinary incontinence Quality improving 09/25/[address] Grhaam and had stimulation treatments done which has [...] data Encounters Encounter Performer Location Codes Date ([id number]) 19747 EST. PATIENT, LEVEL IV Diagnosis: Essential (primary) hypertension[ICD10: I10] Diagnosis: Mixed hyperlipidemia[ICD10: E78.2] Diagnosis: Atherosclerosis of renal artery[ICD10: I70.1] April Ugalde MD, [facility] CPT-4: 40603 10/07/2017 ([id number]) 73015 EST. PATIENT, LEVEL IV Diagnosis: Essential (primary) hypertension[ICD10: I10] Diagnosis: Mixed hyperlipidemia[ICD10: E78.2] April Ugalde MD, [facility] CPT- 4: 24996 03/26/2017 ([id number]) PER PM REEVAL EST PAT 65+ YR Diagnosis: Encounter for general adult medical examination without abnormal findings[ICD10: Z00.00] [facility] CPT-4: 94291 09/25/2016 ([id number]) 94684 EST. PATIENT, LEVEL IV Diagnosis: Essential (primary) hypertension[ICD10: I10] Diagnosis: Mixed hyperlipidemia[ICD10: E78.2] [facility] CPT- 4: 22320 01/03/2016 ([id number]) PER PM REEVAL EST PAT 65+ YR Diagnosis: Encounter for general adult medical examination without abnormal findings[ICD10: Z00.00] [facility] CPT-4: 53663 07/30/2015 ([id number]) 68775 EST. PATIENT, LEVEL IV Diagnosis: VACCIN FOR INFLUENZA[ICD10: Z23] Diagnosis: ESSENTIAL HYPERTENSION[ICD9: 401.9] Diagnosis: Urinary incontinence[ICD9: 788.30] Diagnosis: HYPERLIPIDEMIA[ICD9: 272.4] KARSTEN Taylor MD CPT-4: 96242 05/11/2014 [id number]) 02001 EST. PATIENT, LEVEL III Diagnosis: ESSENTIAL HYPERTENSION[SNOMED: 19456028] KARSTEN Taylor MD CPT-4: 30002 02/07/2013 ([id number]) 74538 EST. PATIENT, LEVEL IV Diagnosis: ESSENTIAL HYPERTENSION[SNOMED: 89993149] Diagnosis: HYPERLIPIDEMIA[ICD9: 272.4] Diagnosis: GENERAL OSTEOARTHROSIS[ICD9: 715.00] Diagnosis: Toe pain[ICD9: 729.5] KARSTEN Taylor MD CPT-4: 04301 07/28/2012 ([id number] 58030 EST. PATIENT, LEVEL IV Diagnosis: ESSENTIAL HYPERTENSION[SNOMED: 22823641] Diagnosis: HYPERLIPIDEMIA[ICD9: 272.4] KARSTEN Taylor MD CPT-4: 43911 04/13/2012 [id number]) 73151 EST. PATIENT, LEVEL IV Diagnosis: ESSENTIAL HYPERTENSION[SNOMED: 27732678] Diagnosis: HYPERLIPIDEMIA[ICD9: 272.4] KARSTEN Taylor MD CPT-4: 87829 09/24/2011 OFFICE VISIT, NEW - LEVEL 4 Diagnosis: ESSENTIAL HYPERTENSION[SNOMED: 48315254] Diagnosis: HYPERLIPIDEMIA[ICD9: 272.4] Diagnosis: VACCIN STREP PNEUMONIAE[ICD9: V03.82] Diagnosis: Insomnia[ICD9: 780.52] April Ugalde MD, KARSTEN CPT-4: 33015 06/25/2011 Plan of Care Planned Activity Notes Codes Status Date Visit Plan: Hypertension - uncontrolled - the [...] assure normal liver response to medications. 10/07/2017 Patient Education: Patient Medication Summary Completed 10/07/2017 Care Plan: CT ABD & PELV W/CONTRAST LOINC : 71439-9 Pending 10/07/2017 Appointment: [facility] (15 min) Moderate 09/28/2017 Visit Plan: [...] to medications. 03/26/2017 Appointment: April Ugalde [facility]Ptel[facility] [phone] [facility] [place] (15 min) Moderate 03/26/2017 Patient Education: Patient [...] renal functioning. 09/25/2016 Appointment: April Ugalde WPtel: [phone] [facility] [place] (15 min) Moderate 09/25/2016 Patient Education: Patient Medication Summary Completed 09/25/2016 Appointment: April Ugalde WPtel[facility] [phone] [facility] (15 min) Moderate 07/29/2016 Visit Plan: [...] today 05/11/2014 Appointment: April Ugalde [facility]Ptel[facility] [phone] [facility] Follow up 05/11/2014 Patient Education: Patient [...] home. 02/07/2013 Appointment: April Ugalde [facility]Ptel[facility] [phone] [facility] Follow up 02/07/2013 Patient Education: Patient Medication [...] Almazan. 07/28/2012 Appointment: April Ugalde WPtel: [phone] [facility] Other 07/28/2012 Patient Education: Hypertension Completed 07/28/2012 [...] to medications. 04/13/2012 Appointment: April Ugalde WPtel: [phone] [facility] Other 04/13/2012 Patient Education: Patient Medication Summary [...] to medications. 09/24/2011 Appointment: April Ugalde WPtel: [phone] [facility] Other 09/24/2011 Patient Education: Patient Medication Summary [...] 10 mg. 06/25/2011 Appointment: April Ugalde WPtel: [address] [place], [place] [address] New Patient 06/25/2011 Patient Education: Patient Medication [...] on melatonin up to 10 mg. [facility] [employer] [facility] [employer]. [facility] - pt [...]
--- OUTSIDE RECORDS SUMMARY | 2019-03-11 18:28 | XMS REPORT | Continuity of Care Document ---
Author Organization Unknown Address Unknown Allergies Active Description Code Type Severity Reaction Onset Reported/Identified Relationship to Patient Clinical Status Yes erythromycin base [id number] Drug Allergy Unknown NAUSEA 07/28/2012 Yes Penicillins [id number] Drug Allergy Unknown HIVES 07/28/2012 Medications There is no data. Problems Date Dx Coded Attending Type Code Diagnosis Diagnosed By 12/18/2014 ELIEZER ACOSTA MD Ot 719.45 01/12/2015 ELIEZER ACOSTA MD Ot 733.90 01/09/2016 ANSHU JENKINS Ot I10 ESSENTIAL (PRIMARY) HYPERTENSION 01/09/2016 ANSHU JENKINS Ot I70.1 ATHEROSCLEROSIS OF RENAL ARTERY 01/22/2016 ANSHU JENKINS Ot I10 ESSENTIAL (PRIMARY) HYPERTENSION 01/22/2016 ANSHU JENKINS Ot I70.1 ATHEROSCLEROSIS OF RENAL ARTERY 10/13/2017 YASSINE SNELL MD Ot I70.0 ATHEROSCLEROSIS OF AORTA 10/13/2017 YASSINE SNELL MD Ot I70.1 ATHEROSCLEROSIS OF RENAL ARTERY 10/13/2017 YASSINE SNELL MD Ot K57.30 DVRTCLOS OF LG INT W/O PERFORATION OR AB 10/13/2017 YASSINE SNELL MD Ot I70.0 ATHEROSCLEROSIS OF AORTA 10/13/2017 YASSINE SNELL MD Ot I70.1 ATHEROSCLEROSIS OF RENAL ARTERY 10/13/2017 YASSINE SNELL MD Ot K57.30 DVRTCLOS OF LG INT W/O PERFORATION OR AB 11/11/2017 YASSINE SNELL MD Ot I70.0 ATHEROSCLEROSIS OF AORTA 11/11/2017 YASSINE SNELL MD Ot I70.1 ATHEROSCLEROSIS OF RENAL ARTERY 11/11/2017 YASSINE SNELL MD Ot K57.30 DVRTCLOS OF LG INT W/O PERFORATION OR AB 11/12/2017 YASSINE SNELL MD Ot I70.0 ATHEROSCLEROSIS OF AORTA 11/12/2017 YASSINE SNELL MD Ot I70.1 ATHEROSCLEROSIS OF RENAL ARTERY 11/12/2017 YASSINE SNELL MD Ot K57.30 DVRTCLOS OF LG INT W/O PERFORATION OR AB 12/02/2017 YASSINE SNELL MD Ot I70.0 ATHEROSCLEROSIS OF AORTA 12/02/2017 YASSINE SNELL MD Ot I70.1 ATHEROSCLEROSIS OF RENAL ARTERY 12/02/2017 YASSINE SNELL MD Ot K57.30 DVRTCLOS OF LG INT W/O PERFORATION OR AB 12/02/2017 YASSINE SNELL MD Ot I70.0 ATHEROSCLEROSIS OF AORTA 12/02/2017 YASSINE SNELL MD Ot I70.1 ATHEROSCLEROSIS OF RENAL ARTERY 12/02/2017 YASSINE SNELL MD Ot K57.30 DVRTCLOS OF LG INT W/O PERFORATION OR AB 12/03/2017 CRISTAL ODELL MD Ot E78.2 MIXED HYPERLIPIDEMIA 12/03/2017 CRISTAL ODELL MD Ot I10 ESSENTIAL (PRIMARY) HYPERTENSION 12/03/2017 CRISTAL ODELL MD Ot I70.1 ATHEROSCLEROSIS OF RENAL ARTERY 12/03/2017 CRISTAL ODELL MD Ot R09.89 OTH SYMPTOMS AND SIGNS INVOLVING THE CIR 12/23/2017 CRISTAL ODELL MD Ot E78.2 MIXED HYPERLIPIDEMIA 12/23/2017 CRISTAL ODELL MD Ot I10 ESSENTIAL (PRIMARY) HYPERTENSION 12/23/2017 CRISTAL ODELL MD Ot I70.1 ATHEROSCLEROSIS OF RENAL ARTERY 12/23/2017 CRISTAL ODELL MD Ot R09.89 OTH SYMPTOMS AND SIGNS INVOLVING THE CIR 12/30/2017 CRISTAL ODELL MD Ot E78.2 MIXED HYPERLIPIDEMIA 12/30/2017 CRISTAL ODELL MD Ot I10 ESSENTIAL (PRIMARY) HYPERTENSION 12/30/2017 CRISTAL ODELL MD Ot I70.1 ATHEROSCLEROSIS OF RENAL ARTERY 12/30/2017 CRISTAL ODELL MD Ot R09.89 OTH SYMPTOMS AND SIGNS INVOLVING THE CIR 02/08/2019 YASSINE SNELL MD Ot I70.0 ATHEROSCLEROSIS OF AORTA 02/08/2019 YASSINE SNELL MD Ot I70.1 ATHEROSCLEROSIS OF RENAL ARTERY 02/08/2019 CHANNING AZUL, YASSINE Grigsby Ot K57.30 DVRTCLOS OF LG INT W/O PERFORATION OR AB 02/08/2019 CRISTAL ODELL MD Ot E78.2 MIXED HYPERLIPIDEMIA 02/08/2019 CRISTAL ODELL MD Ot I10 ESSENTIAL (PRIMARY) HYPERTENSION 02/08/2019 CRISTAL ODELL MD Ot I70.1 ATHEROSCLEROSIS OF RENAL ARTERY 02/08/2019 CRISTAL ODELL MD Ot R09.89 OTH SYMPTOMS AND SIGNS INVOLVING THE CIR 03/03/2019 ZARIA ANTONIO APRN Ot I10 ESSENTIAL (PRIMARY) HYPERTENSION 03/03/2019 ZARIA ANTONIO APRN Ot K21.9 GASTRO-ESOPHAGEAL REFLUX DISEASE WITHOUT 03/03/2019 ZARIA ANTONIO APRN Ot M54.5 LOW BACK PAIN 03/03/2019 ZARIA ANTONIO APRN Ot I10 ESSENTIAL (PRIMARY) HYPERTENSION 03/03/2019 ZARIA ANTONIO APRN Ot K21.9 GASTRO-ESOPHAGEAL REFLUX DISEASE WITHOUT 03/03/2019 ZARIA ANTONIO APRN Ot M54.5 LOW BACK PAIN 03/07/2019 MARCEL JOSHI MD Ot Z01.818 ENCOUNTER FOR OTHER PREPROCEDURAL EXAMIN 03/08/2019 MARCEL JOSHI MD Ot Z01.818 ENCOUNTER FOR OTHER PREPROCEDURAL EXAMIN Procedures There is no data. Results Test Result Range [id number] - 10/12/17 08:59 Serum or plasma urea nitrogen measurement (mass/volume) 19 mg/dL 7-18 Serum or plasma creatinine measurement (mass/volume) 0.90 mg/dL 0.60-1.30 Serum or plasma urea nitrogen/creatinine mass ratio 21 NRG Serum or plasma creatinine measurement with calculation of estimated glomerular filtration rate > NRG Encounters ACCT No. Visit Date/Time Discharge Status Pt. Type Provider Facility Loc./Unit Complaint [id number] 03/07/2019 15:23:00 03/07/2019 23:59:59 CLS Outpatient ZARIA ANTONIO APRN [facility] REHAB BACK PAIN [id number] 03/07/2019 05:47:00 03/07/2019 16:30:00 DIS Outpatient MARCEL JOSHI MD [facility] PREOP COLONOSCOPY [id number] 12/02/2017 12:48:00 12/02/2017 23:59:59 CLS Outpatient CRISTAL ODELL MD [facility] CARD I70.1 ATHEROSCLEROSIS OF RENAL ARTERY [id number] 10/19/2017 15:17:00 10/19/2017 23:59:59 CLS Preadmit CRISTAL ODELL MD [facility] CARD I70.1 ATHEROSCLEROSIS OF RENAL ARTERY [id number] 10/12/2017 08:49:00 10/12/2017 23:59:59 CLS Outpatient CHANNING AZUL, YASSINE Grigsby [facility] RAD LEFT RENAL ARTERY STENOSIS [id number] 01/02/2016 10:00:00 01/02/2016 23:59:59 CLS Outpatient ANSHU JENKINS [facility] RAD [id number] 12/04/2014 12:25:00 12/04/2014 23:59:59 CLS Outpatient ELIEZER ACOSTA MD [facility] CARD [id number] 11/29/2014 14:58:00 11/29/2014 23:59:59 CLS Outpatient ELIEZER ACOSTA MD [facility] RAD [id number] 12/13/2013 11:44:00 12/13/2013 23:59:59 CLS Outpatient [id number] 03/11/2019 08:45:00 PEN Preadmit ADI AZUL, MARCEL Mcnair [facility] ENDO SCREENING 0000 04/17/2017 15:06:42 04/17/2017 23:59:59 CLS Outpatient [id number] 12/04/2014 12:26:07 ACT Document Registration
--- NOTE | 2019-03-11 20:02 | OPERATIVE REPORT ---
DATE OF SERVICE: COLONOSCOPY SUMMARY INDICATION FOR PROCEDURE: Screening colonoscopy. The patient was placed in left lateral decubitus position. Prior to undergoing colonoscopy, digital rectal evaluation was performed. Anal sphincter tone was normal and the perianal reflexes intact. The colonoscope was then inserted into the rectum and under direct visualization advanced to the cecum. The cecum was identified by identification of the ileocecal valve and cecal strap. Photographic documentation was obtained. Careful inspection was made as the colonoscope was withdrawn. The patient tolerated the procedure well. FINDINGS: There was no evidence for internal or external hemorrhoids and the rectum was unremarkable. A moderate number of small to medium size sigmoid diverticulum were present without evidence for diverticulitis. The ascending colon, transverse colon and ascending colon were unremarkable. A diminutive 3-4 mm sessile polyp was noted in the cecum. It was biopsied and ablated with no subsequent blood loss. ASSESSMENT: One diminutive polyp was removed from the sigmoid colon via hot forceps. As long as there are no surprises on histopathology report, we would advocate consideration for repeat screening colonoscopy in 10 years as the patient is not aware of any family history for colon cancer or polyps. She does have moderate diverticular disease confined to the sigmoid colon without evidence for diverticulitis. No other abnormalities were noted on today's colonoscopy. I thank you for the referral of this pleasant lady. Job ID: [id number] DocumentID: [id number] Dictated Date: 03/11/2019 12:03:15 [employer]ier Tube Room Date: 03/11/2019 20:01:55 Dictated By: MARCEL JOSHI MD
== END 2019-03-11 11:20 | disposition home or self-care (01) ==
LOC: ENDO 07:59
PROVIDERS: ATTEND Internal Medicine
DX: Z12.11 Encounter for screening for malignant neoplasm of colon (principal); K63.5 Polyp of colon; K57.30 Diverticulosis of large intestine without perforation or abscess without bleeding; I10 Essential (primary) hypertension; E78.5 Hyperlipidemia, unspecified; F32.9 Major depressive disorder, single episode, unspecified; Z79.899 Other long term (current) drug therapy

== ENCOUNTER 2019-03-31 10:29 | Outpatient (RCR) | payer MEDICARE | END 2019-05-11 | disposition home or self-care (01) | PROVIDERS: ATTEND Nurse Practitioner Family | DX: M54.5 Low back pain (principal); I10 Essential (primary) hypertension; K21.9 Gastro-esophageal reflux disease without esophagitis ==

== ENCOUNTER 2020-07-17 13:45 | Outpatient (RCR) | payer MEDICARE ==
[~2020-07-17 13:45] MED LIST changes: -METO-387 PO; +MTP25TSR PO
== END 2020-09-12 08:59 | disposition home or self-care (01) ==
PROVIDERS: ATTEND Family Medicine
DX: N39.41 Urge incontinence (principal)

== ENCOUNTER → 2021-07-02 | Outpatient (CLI) | payer MEDICARE ==
[~2021-07-02] MED LIST changes: +SERT-413 PO; -SERT50TA9 PO
--- NOTE | 2021-07-02 14:16 | Diagnostic Imaging Report ---
INDICATION: Asymptomatic postmenopausal female COMPARISON: DEXA 07/20/2002 FINDINGS: AP Spine L1-L4: [BMD (g/cm2): 0.930] [T-Score: -2.2] [Z-Score: -0.1] [BMD Previous: 1.080] [BMD % Change: -13.9] LT Hip Neck: [BMD (g/cm2): 0.650] [T-Score: -2.8] [Z-Score: -0.6] LT Hip Total: [BMD (g/cm2):0.738] [T-Score:-2.1] [Z-Score: -0.1] [BMD Previous: 0.810] [BMD % Change: -8.9] RT Hip Neck: [BMD (g/cm2):0.676] [T-Score:-2.6] [Z-Score:-0.4] RT Hip Total: [BMD (g/cm2):0.785] [T-score:-1.8] [Z-Score:0.3] [BMD Previous:0.884] [BMD % Change:-11.2] World Health Organization criteria for BMD interpretation classify patients as Normal (T-score at or above -1.0), Osteopenic (T-score between -1.0 and -2.5) or Osteoporotic (T-score at or below -2.5). LIMITATIONS AND MODIFICATION: None. FRACTURE RISK (FRAX SCORE): The ten year probability of (%): Major Osteoporotic Fracture: [16.2] Hip Fracture: [6.5] IMPRESSION: 1. Osteoporosis. 2. Bone mineral density has decreased as detailed above. 3. See below National Osteoporosis Foundation guidelines on when to potentially initiate pharmacologic therapy. Based on the National Osteoporosis Foundation Guidelines, pharmacologic treatment should be initiated in any of the following, unless clinical conditions suggest otherwise: * Any patient with prior fragility fracture of the hip or vertebrae. A spine fracture indicates 5X risk for subsequent spine fracture and 2X risk for subsequent hip fracture. * Osteoporosis (T-score <-2.5). * Postmenopausal women and men age 50 and older with low bone mass/osteopenia (T-score between -1.0 and -2.5) by DXA and 10-year major osteoporotic fracture greater than 20% or a 10-year probability of hip fracture greater than 3%. These fracture risks are supplied above in the FRAX score, if applicable. * Clinician judgement and/or patient preferences may indicate treatment for people with 10-year fracture probabilities above or below these levels. Dictated by: Dictated on workstation # [id number]
== END ==
LOC: RAD 11:11
PROVIDERS: ATTEND Family Medicine
DX: M81.0 Age-related osteoporosis without current pathological fracture (principal); Z78.0 Asymptomatic menopausal state
CPT/HCPCS: 77080

== ENCOUNTER → 2021-10-09 | Outpatient (CLI) | payer MEDICARE ==
[~2021-10-09] MED LIST changes: +CATHETER FLUSH 10 ML SYR IV PRN
[2021-10-09 09:24] VITALS: BP 150/82
--- NOTE | 2021-10-09 11:18 | Cardiology Stress Test Report ---
Stress Test Report Date of Procedure/Referring: Date of Procedure: Oct 09, 2021 PCP Cristal Gr MD Admitting Physician April Ugalde MD Indications: CP Baseline Heart Rate: 62 Baseline Blood Pressure: Blood Pressure Systolic: 150 Blood Pressure Diastolic: 82 Vital Signs Date Time Temp Pulse Resp B/P (MAP) Pulse Ox O2 Delivery O2 Flow Rate FiO2 10/09/21 09:24 63 17 150/82 (104) 98 Room Air Baseline Vital Signs Vital Signs Date Time Temp Pulse Resp B/P (MAP) Pulse Ox O2 Delivery O2 Flow Rate FiO2 10/09/21 09:24 63 17 150/82 (104) 98 Room Air Baseline EKG: Baseline EKG: NSR Summary: After explaining the procedure and details to the patient, she signed the consent and was brought to the stress nuclear laboratory. Patient exercised on standard Dhiraj protocol, EKG, heart rate and blood pressure were monitored continuously, resting and stress doses of radio tracer were injected, imaging was acquired and reviewed in the short axis, horizontal long axis and vertical long axis views Patient was able to exercise for a total of 9 minutes on Dhiraj protocol, METs 10.5 Maximum heart rate 118 Maximum blood pressure 187/71 Stress EKG, Minimal nondiagnostic changes Recovery EKG, Return to baseline TID: 0.99 SSS: 2 SDS: 0 EF: 74 Conclusion: 1. Excellent exercise tolerance for a total of 9 minutes on standard Dhiraj protocol, 10.5 METS achieving 81% of maximal expected heart rate 2. Mild degree of chronotropic incompetence with maximum heart rate after 9 minutes of exercise of 118 bpm 3. Hypertensive response to exercise with peak blood pressure 187/71 return to baseline during recovery 4. Minimal nondiagnostic EKG changes with exercise return to baseline during recovery 5. No ischemia or infarction was noted on SPECT images 6. Normal left ventricular size, EF 74% CRISTAL GR MD Oct 09, 2021 11:18
== END ==
LOC: CARD 08:15
PROVIDERS: ATTEND Internal Medicine Cardiovascular Disease
DX: I10 Essential (primary) hypertension (principal)
CPT/HCPCS: 78452; 93017; A9502

== ENCOUNTER → 2021-10-22 | Outpatient (CLI) | payer MEDICARE ==
[~2021-10-22] MED LIST changes: -CATHETER FLUSH 10 ML SYR IV PRN
== END ==
LOC: CARD 12:00
PROVIDERS: ATTEND Internal Medicine Cardiovascular Disease
DX: I11.9 Hypertensive heart disease without heart failure (principal)
CPT/HCPCS: 93306